=== PATIENT | male | born 1990 | race Caucasian/White ===

== ENCOUNTER 2020-01-04 04:56 | Inpatient (IN) | payer OTHER ==
[2020-01-04] MEDS ORDERED: LORAZEPAM INJ 2 MG/1 ML VIAL IV ONE (05:28)
[2020-01-04] MEDS ORDERED: NORMAL SALINE 1000 ML 1,000 ML IV ONE ×2 (05:29→07:07)
--- NOTE | 2020-01-04 05:34 | ER Document Report ---
ED General - General Chief Complaint: Pain All Over Stated Complaint: BODY ACHE,SHORTNESS OF BREATH,VOMITING Time Seen by Provider: 01/04/20 05:22 Notes: Patient is a 29-year-old male that comes emergency department for chief complaint of vomiting and severe muscle cramping with inability to straighten out his arms. He states has been vomiting for the past 2 days. He denies particular abdominal pain. He admits that he has been "binge drinking alcohol" and he states he drinks alcohol heavily. He also has a history of pancreatitis. He denies history of alcohol withdrawals in the past however. He denies fever, shortness of breath, chest pain, abnormal bowel movements. He denies hematemesis. He denies any daily medications or diagnosed medical history. He denies any surgeries. He denies recreational drugs. Patient admits that he has had at least 1 drink of alcohol every day for over 10 years. - Related Data Allergies/Adverse Reactions: No Known Allergies Allergy (Unverified 01/04/20 05:42) Past Medical History - General Information source: Patient - Social History Smoking Status: Current Every Day Smoker Frequency of alcohol use: Heavy Drug Abuse: None Lives with: Alone Family History: Reviewed & Not Pertinent Surgical Hx: Negative - Immunizations Hx Diphtheria, Pertussis, Tetanus Vaccination: Yes Review of Systems - Review of Systems Constitutional: See HPI EENT: No symptoms reported Cardiovascular: No symptoms reported Respiratory: No symptoms reported Gastrointestinal: See HPI Genitourinary: No symptoms reported Male Genitourinary: No symptoms reported Musculoskeletal: See HPI Skin: No symptoms reported Hematologic/Lymphatic: No symptoms reported Neurological/Psychological: No symptoms reported Physical Exam - Vital signs Vitals: Temp Pulse Resp BP Pulse Ox 99.5 F 162 H 36 H 146/69 H 95 01/04/20 05:10 01/04/20 05:10 01/04/20 05:10 01/04/20 05:10 01/04/20 05:10 - Notes Notes: GENERAL: Patient is ill in appearance, flushed, tremulous HEAD: Normocephalic, atraumatic. EYES: Pupils equal, round, and reactive to light. Extraocular movements intact. ENT: Oral mucosa moist, tongue midline. Oropharynx unremarkable. Airway patent. NECK: Full range of motion. Supple. Trachea midline. No lymphadenopathy. LUNGS: Clear to auscultation bilaterally, no wheezes, rales, or rhonchi. No respiratory distress. Non-tender chest wall. HEART: Marked tachycardia, normal rhythm, no murmur ABDOMEN: Soft, non-tender. Non-distended. Bowel sounds present in all 4 quadrants. GENITOURINARY: Deferred EXTREMITIES: Unable to bend his extremities at the elbows and unable to open his hands. Distal pulses and sensation intact. BACK: no cervical, thoracic, lumbar midline tenderness. No saddle anesthesia, normal distal neurovascular exam. Moves all extremities in full range of motion. NEUROLOGICAL: Alert and oriented x3. Normal speech. Cranial nerves II through XII grossly intact. Strength 5/5 in all extremities. PSYCH: Patient slightly agitated, restless, anxious SKIN: Flushed Course - Re-evaluation Re-evalutation: Patient initially unable to extend his arms at the elbows and unable to open his hands, he is very uncomfortable, tremulous, flushed, and very tachycardic in the 150s. I suspect alcohol withdrawal and electrolyte derangements. He was given IV fluids, 2 mg of Ativan. After this patient was able to extend his arms and eventually his hands, he appears much improved. Heart rate down to approximately 115. CBC shows leukocytosis and small amount of bands, nonspecific given reported repeated vomiting. Abdomen is unremarkable. Chest x-ray unremarkable. Urine is pending. Chemistry shows mildly elevated LFTs and bilirubin, unremarkable lipase, slightly low bicarbonate. Magnesium is very low at 0.8 and this is being supplemented. On reevaluation patient is started become very tremulous and increasingly tachycardic again up to 130. I suspect the Ativan is wearing off. Patient was given IV Valium and heart rate dropped down to 105. Patient is much improved in appearance. Patient appears to be having significant withdrawal along with his electrolyte derangements, he will require admission. Discussed with Dr. Gramajo. 01/04/[address] Swartz, hospitalist, patient accepted to [facility] for admission. Patient does state understanding and agreement with this plan. - Vital Signs Vital signs: Temp Pulse Resp BP Pulse Ox 100.3 F 162 H 20 114/65 96 01/04/20 05:57 01/04/20 05:10 01/04/20 08:01 01/04/20 08:01 08/09/20 08:01 - Laboratory Result Diagrams: 01/04/20 05:28 01/04/20 05:28 Laboratory results interpreted by me: 01/04/20 01/04/20 05:28 05:28 WBC 11.9 H RBC 4.18 L MCV 100 H MCH 33.9 H Seg Neuts % (Manual) 91 H Band Neutrophils % 2 L Lymphocytes % (Manual) 3 L Abs Neuts (Manual) 11.1 H Abs Lymphs (Manual) 0.4 L Sodium 133.8 L Chloride 90 L Carbon Dioxide 20 L Anion Gap 24 H Glucose 128 H Calcium 8.3 L Magnesium 0.8 L* Total Bilirubin 4.1 H Direct Bilirubin 1.3 H AST 97 H ALT 61 H Alkaline Phosphatase 167 H - EKG Interpretation by Me Additional EKG results interpreted by me: EKG shows sinus tachycardia at a rate of 119, borderline prolonged QT interval at 485, normal axis, no T wave inversions or ST segment changes in consecutive leads Discharge - Discharge Clinical Impression: Tachycardia, Hypomagnesemia Alcohol withdrawal Qualifiers: Complication of substance-induced condition: with unspecified complication Qual ified Code(s): F10.239 - Alcohol dependence with withdrawal, unspecified Vomiting Qualifiers: Vomiting type: unspecified Vomiting Intractability: non-intractable Nausea presence: with nausea Qualified Code(s): R11.2 - Nausea with vomiting, unspecified Condition: Fair Disposition: ADMITTED INPATIENT Admitting Provider: Sheridan (Hospitalist) Unit Admitted: [facility]
[2020-01-04 05:53] LABS: HEMATOCRIT 41.8 % (37.9-51.0); HEMOGLOBIN 14.2 g/dL (13.5-17.0); MEAN CORPUSCULAR HEMOGLOBIN 33.9 pg (27.0-33.4); MEAN CORPUSCULAR HGB CONC 33.9 g/dL (32.0-36.0); MEAN CORPUSCULAR VOLUME 100 fl (80-97); PLATELET COUNT 184 10^3/uL (150-450); RED BLOOD COUNT 4.18 10^6/uL (4.35-5.55); RED CELL DISTRIBUTION WIDTH 12.8 % (11.5-14.0); WHITE BLOOD COUNT 11.9 10^3/uL (4.0-10.5)
[2020-01-04 05:59] LABS: ALBUMIN 4.6 g/dL (3.5-5.0); ALKALINE PHOSPHATASE 167 U/L (38-126); ASPARTATE AMINO TRANSFERASE 97 U/L (17-59); BILIRUBIN,DIRECT 1.3 mg/dL (0.0-0.4); BILIRUBIN,TOTAL 4.1 mg/dL (0.2-1.3); BLOOD UREA NITROGEN 7 mg/dL (7-20); CALCIUM 8.3 mg/dL (8.4-10.2); GLUCOSE 128 mg/dL (75-110); TOTAL PROTEIN 7.9 g/dL (6.3-8.2)
[2020-01-04 06:03] LABS: CARBON DIOXIDE 20 mmol/L (22-30); CHLORIDE 90 mmol/L (98-107)
[2020-01-04 06:05] LABS: ALCOHOL < 10 mg/dL (NONE DETECTED)
[2020-01-04 06:18] LABS: ABSOLUTE LYMPHOCYTES# (MANUAL) 0.4 10^3/uL (0.5-4.7); ABSOLUTE MONOCYTES # (MANUAL) 0.5 10^3/uL (0.1-1.4); BAND NEUTROPHILS % (MANUAL) 2 % (3-5); BASOPHILS % (MANUAL) 0 % (0-2); EOSINOPHILS % (MANUAL) 0 % (0-6); LYMPHOCYTES % (MANUAL) 3 % (13-45); MONOCYTES % (MANUAL) 4 % (3-13); SEGMENTED NEUTROPHILS % (MAN) 91 % (42-78); TOTAL CELLS COUNTED 100
[2020-01-04] MEDS: MAGNESIUM SULFATE/D5W 1 GM/100 ML RTUPB IV SCH ×4 (06:18→15:29)
[2020-01-04 06:20] LABS: PLATELET COMMENT ADEQUATE; PLATELET LARGE PRESENT; POLYCHROMASIA SLIGHT; TEAR DROP CELLS SLIGHT
[2020-01-04 06:21] LABS: ANION GAP 24 (5-19)
--- NOTE | 2020-01-04 06:49 | RADIOLOGY REPORT (SQ) ---
EXAM DESCRIPTION: XR CHEST 1 VIEW COMPLETED DATE/TME: 01/04/2020 06:11 CLINICAL HISTORY: 29 years, Male, weakness, fevers COMPARISON: None. NUMBER OF VIEWS: 1 TECHNIQUE: Portable chest LIMITATIONS: None. FINDINGS: The heart size is normal. Lungs are clear. No pneumothorax IMPRESSION: Negative chest copyright 2011 [employer]- All Rights Reserved
[2020-01-04] MEDS ORDERED: THIAMINE HCL 100 MG, FOLIC ACID 1 MG in NORMAL SALINE 250 ML IV ONE (07:23)
[2020-01-04] MEDS ORDERED: DIAZEPAM INJ 10 MG/2 ML DISP.SYRIN IV ONE (07:23)
--- NOTE | 2020-01-04 08:32 | EKG REPORT ---
SEVERITY:- BORDERLINE ECG - SINUS TACHYCARDIA BORDERLINE PROLONGED QT INTERVAL : Confirmed by: Benton Grover MD 04-Jan-2020 08:31:31
[2020-01-04] MEDS ORDERED: POTASSIUM CHLORIDE 10 MEQ TABLET.ER PO ONE ×2 (08:48→15:30)
[2020-01-04] MEDS ORDERED: IPRATROPIUM/ALBUTEROL 0.5-2.5 MG/3 ML AMPUL NEB PRN (08:49)
[2020-01-04] MEDS ORDERED: PROMETHAZINE HCL INJ 25 MG/1 ML VIAL IV PRN (08:49)
[2020-01-04] MEDS ORDERED: ONDANSETRON HCL INJ/PF 4 MG/2 ML SDV IV PRN (08:49)
[2020-01-04] MEDS ORDERED: TEMAZEPAM 7.5 MG CAPSULE PO PRN (08:49)
[2020-01-04] MEDS ORDERED: HYDRALAZINE HCL INJ/PF 20 MG/1 ML SDV IV PRN (08:52)
[2020-01-04] MEDS ORDERED: DOCUSATE SODIUM 100 MG/10 ML UDC PO SCH (10:00)
[2020-01-04] MEDS ORDERED: MULTIVITAMINS W-IRON TABLET, CHEWABLE PO SCH (10:00)
[2020-01-04 12:27] LABS: APPEARANCE,URINE CLEAR; BILIRUBIN,URINE SMALL (NEGATIVE); COLOR,URINE AMBER; GLUCOSE, URINE NEGATIVE (NEGATIVE); KETONES,URINE NEGATIVE (NEGATIVE); LEUKOCYTE ESTERASE,URINE NEGATIVE (NEGATIVE); NITRITE,URINE NEGATIVE (NEGATIVE); PROTEIN,URINE 30 mg/dL (NEGATIVE); URINE SPECIFIC GRAVITY 1.016
[2020-01-04 12:35] LABS: URINE AMPHETAMINES SCREEN NEGATIVE; URINE BARBITURATES SCREEN NEGATIVE; URINE BENZODIAZEPINES SCREEN NEGATIVE; URINE COCAINE SCREEN NEGATIVE; URINE MARIJUANA (THC) SCREEN NEGATIVE; URINE METHADONE SCREEN NEGATIVE; URINE PHENCYCLIDINE SCREEN NEGATIVE
--- NOTE | 2020-01-04 12:54 | PDOC H&P ---
History of Present Illness Admission Date/PCP: 01/04/20 08:35 History of Present Illness: NICK ESTRELLA is a 29 year old male past medical history of EtOH abuse with frequent binge drinking, alcohol withdrawal seizure, alcoholic pancreatitis presenting to ED complaining of nausea vomiting and severe muscle cramps for the last 2 days. Patient has been drinking heavily recently, saying that he has been drinking constantly for the last several days, patient also has history of alcohol pancreatitis and has had alcohol withdrawals in the past and been hospitalized. Saw patient this morning after he has already received IV fluids and benzodiazepines sitting in the bed appearing very anxious and is stating that his lower extremities are cramping up but has nausea and vomiting has resolved since he came to ED. Patient lives with his at home they have a get together, patient has not been exposed to anybody with COVID-19, denies any shortness of breath, fever, chills, chest pain or any urinary symptoms. In ED was noted to be tachypneic, tachycardic, hypokalemic and hypomagnesemic. Hospitalist was consulted for admission. Social History Lives with: Alone Smoking Status: Current Every Day Smoker Family History Family History: Reviewed & Not Pertinent Parental Family History Reviewed: Yes Children Family History Reviewed: Yes Sibling(s) Family History Reviewed.: Yes Medication/Allergy Allergies/Adverse Reactions: No Known Allergies Allergy (Unverified 01/04/20 05:42) Review of Systems Review of Systems: as per hpi Physical Exam Vital Signs: Temp Pulse Resp BP Pulse Ox 98.1 F 93 18 94/66 L 100 01/04/20 12:00 01/04/20 12:00 01/04/20 12:00 01/04/20 12:00 01/04/20 12:00 Intake & Output 01/03/20 01/04/20 01/05/20 06:59 06:59 06:59 Intake Total 1000 200 Balance 1000 200 Weight 74.843 kg General appearance: PRESENT: no acute distress, thin, well-developed, well- nourished Head exam: PRESENT: atraumatic, normocephalic Respiratory exam: PRESENT: clear to auscultation emmanuel, symmetrical, tachypnea. ABSENT: rales, rhonchi, wheezes Cardiovascular exam: PRESENT: RRR, tachycardia. ABSENT: diastolic murmur, rubs, systolic murmur GI/Abdominal exam: PRESENT: normal bowel sounds, soft. ABSENT: distended, guarding, mass, organolmegaly, rebound, tenderness Neurological exam: PRESENT: alert, awake, oriented to person, oriented to place, oriented to time, oriented to situation, CN II-XII grossly intact. ABSENT: motor sensory deficit Psychiatric exam: PRESENT: anxious Results Laboratory Results: 01/04/20 05:28 01/04/20 05:28 01/04/20 01/04/20 01/04/20 05:28 05:28 12:03 WBC 11.9 H RBC 4.18 L Hgb 14.2 Hct 41.8 MCV 100 H MCH 33.9 H MCHC 33.9 RDW 12.8 Plt Count 184 Seg Neutrophils % Not Reportable Sodium 133.8 L Potassium 4.0 Chloride 90 L Carbon Dioxide 20 L Anion Gap 24 H BUN 7 Creatinine 0.54 Est GFR ( Amer) > 60 Glucose 128 H Calcium 8.3 L Magnesium 0.8 L* Total Bilirubin 4.1 H AST 97 H Alkaline Phosphatase 167 H Total Protein 7.9 Albumin 4.6 Lipase 124.8 Urine Color DEREK Urine Appearance CLEAR Urine pH 8.0 Ur Specific [place] 1.016 Urine Protein 30 H Urine Glucose (UA) NEGATIVE Urine Ketones NEGATIVE Urine Blood NEGATIVE Urine Nitrite NEGATIVE Ur Leukocyte Esterase NEGATIVE Urine WBC (Auto) 1 Impressions: Chest X-Ray 01/04/20 06:11 IMPRESSION: Negative chest copyright 2011 [employer]- All Rights Reserved Assessment and Plan - Diagnosis (1) ETOH abuse Is this a current diagnosis for this admission?: Yes Plan: History of frequent binge eating and alcohol withdrawal seizures and pancreatitis. Lipase WNL. Polyelectrolyte abnormalities. Admit to IMCU, D5 NS, thiamine, folic acid, benzodiazepines, seizure precautions, fall precautions. (2) Hypokalemia Is this a current diagnosis for this admission?: Yes Plan: Due to GI losses caused by excessive vomiting caused by alcohol intoxication. No acute EKG changes. Supplemental potassium. Potassium level tomorrow. (3) Hypomagnesemia Is this a current diagnosis for this admission?: Yes Plan: Due to GI losses. Will replace. Magnesium level tomorrow. (4) Cramps, muscle, general Is this a current diagnosis for this admission?: Yes Plan: Likely due to poly-electrolyte abnormalities and dehydration. Rehydrate and correct electrolytes. Will obtain CK. Denies any trauma. - Time Time Spent with patient: 25-34 minutes Medications reviewed and adjusted accordingly: Yes Anticipated Discharge Disposition: Home, Self Care Anticipated Discharge Timeframe: within 72 hours
[2020-01-04] MEDS: DEXTROSE 5%-WATER 1000 ML 1,000 ML IV PRN (14:01)
[2020-01-04] MEDS: ENOXAPARIN SODIUM INJ 40 MG/0.4 ML DISP.SYRIN SUBCUT SCH (14:01)
[2020-01-04] MEDS: FAMOTIDINE 20 MG TABLET PO SCH ×2 (14:01→21:18)
[2020-01-04] MEDS: MULTIVITAMIN TABLET PO SCH (14:01)
[2020-01-04] MEDS: DIAZEPAM INJ 10 MG/2 ML DISP.SYRIN IV SCH ×2 (14:07→21:16)
[2020-01-04 14:17] LABS: ANION GAP 9 (5-19); BLOOD UREA NITROGEN 6 mg/dL (7-20); CHLORIDE 92 mmol/L (98-107); GLUCOSE 97 mg/dL (75-110); POTASSIUM 3.3 mmol/L (3.6-5.0)
[2020-01-04 14:27] LABS: CARBON DIOXIDE 30 mmol/L (22-30)
[2020-01-04] MEDS ORDERED: CALCIUM CARBONATE 500 MG TAB.CHEW PO ONE ×2 (16:00)
[2020-01-04] MEDS: LORAZEPAM INJ 2 MG/1 ML VIAL IV PRN ×2 (16:18→19:12)
[2020-01-04] MEDS ORDERED: MAGNESIUM SULFATE/D5W 1 GM/100 ML RTUPB IV ONE (16:30)
[2020-01-04] MEDS ORDERED: NORMAL SALINE 1000 ML 1,000 ML with POTASSIUM CHLORIDE 20 MEQ, MAGNESIUM SULFATE 8 MEQ,... IV ONE ×5 (18:00)
[2020-01-04 20:17] LABS: ANION GAP 10 (5-19); BLOOD UREA NITROGEN 5 mg/dL (7-20); CALCIUM 7.2 mg/dL (8.4-10.2); CARBON DIOXIDE 25 mmol/L (22-30); CHLORIDE 91 mmol/L (98-107); GLUCOSE 164 mg/dL (75-110); POTASSIUM 3.6 mmol/L (3.6-5.0)
[2020-01-04] MEDS: ACETAMINOPHEN 325 MG TABLET PO PRN (20:36)
[2020-01-05] MEDS: DEXTROSE 5%-WATER 1000 ML 1,000 ML IV PRN ×3 (01:54→17:20)
[2020-01-05] MEDS: DIAZEPAM INJ 10 MG/2 ML DISP.SYRIN IV SCH ×3 (05:28→23:00)
[2020-01-05 06:38] LABS: ABSOLUTE LYMPHOCYTES (AUTO) 0.6 10^3/uL (0.5-4.7); ABSOLUTE MONOCYTES (AUTO) 0.3 10^3/uL (0.1-1.4); ABSOLUTE NEUT (AUTO) 4.7 10^3/uL (1.7-8.2); BASOPHILS % (AUTO) 0.5 % (0-2); EOSINOPHILS % (AUTO) 0.5 % (0-6); HEMOGLOBIN 12.3 g/dL (13.5-17.0); LYMPHOCYTES % (AUTO) 10.9 % (13-45); MEAN CORPUSCULAR HEMOGLOBIN 34.7 pg (27.0-33.4); MEAN CORPUSCULAR HGB CONC 35.1 g/dL (32.0-36.0); MEAN CORPUSCULAR VOLUME 99 fl (80-97); PLATELET COUNT 129 10^3/uL (150-450); RED BLOOD COUNT 3.54 10^6/uL (4.35-5.55); RED CELL DISTRIBUTION WIDTH 13.2 % (11.5-14.0); SEGMENTED NEUTROPHILS % (AUTO) 82.1 % (42-78); TOTAL CELLS COUNTED % (AUTO) 100 %; WHITE BLOOD COUNT 5.7 10^3/uL (4.0-10.5)
[2020-01-05 06:48] LABS: INTERNATIONAL RATION (INR) 1.28; PROTHROMBIN TIME 16.2 SEC (11.4-15.4)
[2020-01-05 07:02] LABS: ALKALINE PHOSPHATASE 92 U/L (38-126); ANION GAP 9 (5-19); ASPARTATE AMINO TRANSFERASE 84 U/L (17-59); BILIRUBIN,DIRECT 1.3 mg/dL (0.0-0.4); BILIRUBIN,TOTAL 3.1 mg/dL (0.2-1.3); BLOOD UREA NITROGEN 3 mg/dL (7-20); CALCIUM 7.3 mg/dL (8.4-10.2); CARBON DIOXIDE 26 mmol/L (22-30); CHLORIDE 93 mmol/L (98-107); GLUCOSE 152 mg/dL (75-110); PHOSPHORUS 1.7 mg/dL (2.5-4.5)
[2020-01-05 07:09] LABS: POTASSIUM 3.4 mmol/L (3.6-5.0)
[2020-01-05] MEDS ORDERED: CALCIUM GLUCONATE 1000 MG/10 ML INJ IV ONE (07:26)
[2020-01-05] MEDS ORDERED: CALCIUM GLUCONATE 1 GM/NS 50 ML RTU IV ONE (08:30)
[2020-01-05] MEDS ORDERED: PHOSPHORUS #1 250 MG TABLET PO ONE (09:00)
[2020-01-05] MEDS: MULTIVITAMIN TABLET PO SCH (09:41)
[2020-01-05] MEDS: FAMOTIDINE 20 MG TABLET PO SCH (09:41)
[2020-01-05] MEDS: ENOXAPARIN SODIUM INJ 40 MG/0.4 ML DISP.SYRIN SUBCUT SCH (09:41)
[2020-01-05] MEDS ORDERED: MAGNESIUM OXIDE 400 MG TABLET PO SCH (10:00)
[2020-01-05] MEDS ORDERED: THIAMINE HCL 100 MG TABLET PO SCH (10:00)
[2020-01-05] MEDS ORDERED: FOLIC ACID 1 MG TABLET PO SCH (10:00)
[2020-01-05] MEDS ORDERED: DOCUSATE SODIUM 100 MG CAPSULE PO SCH (10:00)
--- NOTE | 2020-01-05 10:59 | PDOC PROGRESS REPORT ---
Subjective Progress Note for:: 01/05/20 Subjective:: NICK ESTRELLA is a 29 year old male past medical history of EtOH abuse with frequent binge drinking, alcohol withdrawal seizure, alcoholic pancreatitis presenting to ED complaining of nausea vomiting and severe muscle cramps for the last 2 days. Patient has been drinking heavily recently, saying that he has been drinking constantly for the last several days, patient also has history of alcohol pancreatitis and has had alcohol withdrawals in the past and been hospitalized. Saw patient this morning after he has already received IV fluids and benzodiazepines sitting in the bed appearing very anxious and is stating that his lower extremities are cramping up but has nausea and vomiting has resolved since he came to ED. Patient lives with his at home they have a get together, patient has not been exposed to anybody with COVID-19, denies any shortness of breath, fever, chills, chest pain or any urinary symptoms. In ED was noted to be tachypneic, tachycardic, hypokalemic and hypomagnesemic. Hospitalist was consulted for admission. 01/05/2020. No acute events overnight. Patient has not had any more seizures, resting in bed no apparent distress, complaining of generalized weakness and muscle cramps otherwise denies any fever, chills, nausea, vomiting, diarrhea, constipation or any urinary symptoms. Feeling anxious however denies any au ditory or visual hallucination, yesterday patient was having visual hallucinations. P.o. tolerant and having normal bowel and bladder movements. Reason For Visit: NAUSEA,VOMITING,ETOH ABUSE Physical Exam Vital Signs: Temp Pulse Resp BP Pulse Ox 99.3 F 101 H 16 114/66 96 01/05/20 04:01 01/05/20 09:00 01/05/20 09:00 01/05/20 04:01 01/05/20 09:00 Intake & Output 01/04/20 01/05/20 01/06/20 06:59 06:59 06:59 Intake Total 1000 5654.2 1000 Output Total 1830 Balance 1000 3824.2 1000 Weight 74.843 kg 74.2 kg General appearance: PRESENT: no acute distress, well-developed, well-nourished Head exam: PRESENT: atraumatic, normocephalic Respiratory exam: PRESENT: clear to auscultation emmanuel. ABSENT: rales, rhonchi, wheezes Cardiovascular exam: PRESENT: RRR. ABSENT: diastolic murmur, rubs, systolic murmur GI/Abdominal exam: PRESENT: normal bowel sounds, soft. ABSENT: distended, guarding, mass, organolmegaly, rebound, tenderness Neurological exam: PRESENT: alert, awake, oriented to person, oriented to place, oriented to time, oriented to situation, CN II-XII grossly intact. ABSENT: motor sensory deficit Psychiatric exam: PRESENT: anxious Results Laboratory Results: 01/05/20 05:40 01/05/20 05:40 01/04/20 01/04/20 01/04/20 12:03 13:48 18:15 WBC RBC Hgb Hct MCV MCH MCHC RDW Plt Count Seg Neutrophils % Sodium 131.4 L Cancelled Potassium 3.3 L Cancelled Chloride 92 L Cancelled Carbon Dioxide 30 D Cancelled Anion Gap 9 Cancelled BUN 6 L Cancelled Creatinine 0.40 L Cancelled Est GFR ( Amer) > 60 Cancelled Est GFR (Non-Af Amer) Cancelled Glucose 97 Cancelled Calcium 7.0 L* Cancelled Phosphorus Magnesium 1.6 Cancelled Total Bilirubin AST Alkaline Phosphatase Total Protein Albumin Urine Color DEREK Urine Appearance CLEAR Urine pH 8.0 Ur Specific [place] 1.016 Urine Protein 30 H Urine Glucose (UA) NEGATIVE Urine Ketones NEGATIVE Urine Blood NEGATIVE Urine Nitrite NEGATIVE Ur Leukocyte Esterase NEGATIVE Urine WBC (Auto) 1 01/04/20 01/05/20 01/05/20 19:50 05:40 05:40 WBC 5.7 RBC 3.54 L Hgb 12.3 L Hct 35.0 L MCV 99 H MCH 34.7 H MCHC 35.1 RDW 13.2 Plt Count 129 L Seg Neutrophils % 82.1 H Sodium 125.9 L 127.5 L Potassium 3.6 3.4 L Chloride 91 L 93 L Carbon Dioxide 25 26 Anion Gap 10 9 BUN 5 L 3 L Creatinine 0.38 L 0.33 L Est GFR ( Amer) > 60 > 60 Est GFR (Non-Af Amer) Glucose 164 H 152 H Calcium 7.2 L 7.3 L Phosphorus 1.7 L Magnesium 2.1 2.1 Total Bilirubin 3.1 H AST 84 H Alkaline Phosphatase 92 Total Protein 6.0 L Albumin 3.0 L Urine Color Urine Appearance Urine pH Ur Specific [place] Urine Protein Urine Glucose (UA) Urine Ketones Urine Blood Urine Nitrite Ur Leukocyte Esterase Urine WBC (Auto) 01/04/20 13:48 Creatine Kinase 845 H Impressions: Chest X-Ray 01/04/20 06:11 IMPRESSION: Negative chest copyright 2011 [employer]- All Rights Reserved Assessment and Plan - Diagnosis (1) ETOH abuse Is this a current diagnosis for this admission?: Yes Plan: Complaining of being anxious, denies any visual, auditory hallucinations or any full medications. History of frequent binge eating and alcohol withdrawal seizures and pancreatitis. Lipase WNL. Polyelectrolyte abnormalities. Continue telemetry, D5 NS, thiamine, folic acid, benzodiazepines, seizure precautions, fall precautions. (2) Hypokalemia Is this a current diagnosis for this admission?: Yes Plan: Due to GI losses caused by excessive vomiting caused by alcohol intoxication. No acute EKG changes. Supplemental potassium. Potassium level tomorrow. (3) Hypomagnesemia Is this a current diagnosis for this admission?: Yes Plan: Due to GI losses. Will replace. Magnesium level tomorrow. (4) Cramps, muscle, general Is this a current diagnosis for this admission?: Yes Plan: Likely due to poly-electrolyte abnormalities and dehydration. Rehydrate and correct electrolytes. Will obtain CK. Denies any trauma. (5) Rhabdomyolysis Qualifiers: Rhabdomyolysis type: non-traumatic Qualified Code(s): M62.82 - Rhabdomyolysis Is this a current diagnosis for this admission?: Yes Plan: Most likely due to severe dehydration coupled with poly-electrolyte normalities caused by nausea vomiting due to alcohol abuse. Creatinine kinase 945. Volume resuscitation guided by volume status. Monitor electrolytes. - Time Time Spent with patient: 25-34 minutes Medications reviewed and adjusted accordingly: Yes Anticipated Discharge Disposition: Home, Self Care Anticipated Discharge Timeframe: within 36 hours
[2020-01-05] MEDS: LORAZEPAM INJ 2 MG/1 ML VIAL IV PRN ×3 (12:44→20:42)
[2020-01-05] MEDS: ACETAMINOPHEN 325 MG TABLET PO PRN (20:30)
[2020-01-06] MEDS: FAMOTIDINE 20 MG TABLET PO SCH (01:34)
[2020-01-06 03:57] VITALS: BP 97/58
[2020-01-06 06:18] LABS: ABSOLUTE BASOPHILS # (AUTO) 0.1 10^3/uL (0.0-0.2); ABSOLUTE EOSINOPHILS # (AUTO) 0.1 10^3/uL (0.0-0.6); ABSOLUTE LYMPHOCYTES (AUTO) 1.1 10^3/uL (0.5-4.7); ABSOLUTE MONOCYTES (AUTO) 0.6 10^3/uL (0.1-1.4); ABSOLUTE NEUT (AUTO) 3.6 10^3/uL (1.7-8.2); BASOPHILS % (AUTO) 1.2 % (0-2); EOSINOPHILS % (AUTO) 1.7 % (0-6); HEMATOCRIT 36.5 % (37.9-51.0); HEMOGLOBIN 12.6 g/dL (13.5-17.0); LYMPHOCYTES % (AUTO) 20.3 % (13-45); MEAN CORPUSCULAR HEMOGLOBIN 34.4 pg (27.0-33.4); MEAN CORPUSCULAR HGB CONC 34.6 g/dL (32.0-36.0); MEAN CORPUSCULAR VOLUME 99 fl (80-97); MONOCYTES % (AUTO) 10.5 % (3-13); PLATELET COUNT 135 10^3/uL (150-450); RED BLOOD COUNT 3.68 10^6/uL (4.35-5.55); RED CELL DISTRIBUTION WIDTH 13.3 % (11.5-14.0); SEGMENTED NEUTROPHILS % (AUTO) 66.3 % (42-78); TOTAL CELLS COUNTED % (AUTO) 100 %; WHITE BLOOD COUNT 5.4 10^3/uL (4.0-10.5)
[2020-01-06 06:34] LABS: ALBUMIN 3.1 g/dL (3.5-5.0); ALKALINE PHOSPHATASE 109 U/L (38-126); ANION GAP 7 (5-19); ASPARTATE AMINO TRANSFERASE 76 U/L (17-59); BLOOD UREA NITROGEN 4 mg/dL (7-20); CALCIUM 7.9 mg/dL (8.4-10.2); CARBON DIOXIDE 28 mmol/L (22-30); CHLORIDE 98 mmol/L (98-107); CREATINE KINASE 318 U/L (55-170); GLUCOSE 119 mg/dL (75-110); PHOSPHORUS 2.7 mg/dL (2.5-4.5); POTASSIUM 3.3 mmol/L (3.6-5.0); TOTAL PROTEIN 6.1 g/dL (6.3-8.2)
[2020-01-06] MEDS ORDERED: POTASSIUM CHLORIDE 10 MEQ TABLET.ER PO ONE (07:59)
[2020-01-06] MEDS ORDERED: DIAZEPAM INJ 10 MG/2 ML DISP.SYRIN IV SCH (10:00)
--- NOTE | 2020-01-10 15:44 | Left Against Medical Advice ---
Against Medical Advice Admission Date/Time: 01/04/20 08:35 Primary Care Provider: Date of Patient Emigration: 01/06/20 - Diagnosis: (1) ETOH abuse Is this a current diagnosis for this admission?: Yes (2) Hypokalemia Is this a current diagnosis for this admission?: Yes (3) Hypomagnesemia Is this a current diagnosis for this admission?: Yes (4) Cramps, muscle, general Is this a current diagnosis for this admission?: Yes (5) Rhabdomyolysis Is this a current diagnosis for this admission?: Yes - Summary: Summary: Please see Admission and Progress Notes as well. NICK ESTRELLA is a 29 M, who LEFT AGAINST MEDICAL ADVICE. The Patient was admitted on 01/04/20 08:35. NICK ESTRELLA is a 29 year old male past medical history of EtOH abuse with frequent binge drinking, alcohol withdrawal seizure, alcoholic pancreatitis p resenting to ED complaining of nausea vomiting and severe muscle cramps for the last 2 days. Patient has been drinking heavily recently, saying that he has been drinking constantly for the last several days, patient also has history of alcohol pancreatitis and has had alcohol withdrawals in the past and been hospitalized. Saw patient this morning after he has already received IV fluids and henrique zodiazepines sitting in the bed appearing very anxious and is stating that his lower extremities are cramping up but has nausea and vomiting has resolved since he came to ED. Patient lives with his at home they have a get together, patient has not been exposed to anybody with COVID-19, denies any shortness of breath, fever, chills, chest pain or any urinary symptoms. In ED was noted to be tachypneic, tachycardic, hypokalemic and hypomagnesemic. Hospitalist was consulted for admission. (1) ETOH abuse Complaining of being anxious, denies any visual, auditory hallucinations or any full medications. History of frequent binge eating and alcohol withdrawal seizures and pancreatitis. Lipase WNL. Polyelectrolyte abnormalities. Continue telemetry, D5 NS, thiamine, folic acid, benzodiazepines, seizure precautions, fall precautions. (2) Hypokalemia Due to GI losses caused by excessive vomiting caused by alcohol intoxication. No acute EKG changes. Supplemental potassium. Potassium level tomorrow. (3) Hypomagnesemia Due to GI losses. Will replace. Magnesium level tomorrow. (4) Cramps, muscle, general Likely due to poly-electrolyte abnormalities and dehydration. Rehydrate and correct electrolytes. Will obtain CK. Denies any trauma. (5) Rhabdomyolysis Most likely due to severe dehydration coupled with poly-electrolyte normalities caused by nausea vomiting due to alcohol abuse. Creatinine kinase 945. Volume resuscitation guided by volume status. Monitor electrolytes.
== END 2020-01-06 10:00 | disposition left against medical advice (07) | DRG 558 ==
LOC: ER 04:56 → EH 08:35 → 3W 11:57 → 3N 20:09
PROVIDERS: ADMIT Internal Medicine; ATTEND Internal Medicine
DX: M62.82 Rhabdomyolysis (principal); F10.239 Alcohol dependence with withdrawal, unspecified; E83.42 Hypomagnesemia; F17.200 Nicotine dependence, unspecified, uncomplicated; E87.6 Hypokalemia; Z20.828 Contact with and (suspected) exposure to other viral communicable diseases
CPT/HCPCS: 36415; 71045; 80053; 80307; 81001; 82550; 83036; 83690; 83735; 84100; 85025; 85610; 87635; 93005; 93010; 96361; 96365; 96366; 96375; 99285; J0610; C9803; J1650; J2060; J3360; J3411; J3475; J3480; J3490; J7030; J7050; J7060

== ENCOUNTER 2020-01-24 23:49 | Inpatient (IN) | payer OTHER ==
[2020-01-25] MEDS ORDERED: NORMAL SALINE 1000 ML 1,000 ML IV ONE ×3 (00:41→11:45)
[2020-01-25] MEDS ORDERED: DIAZEPAM INJ 10 MG/2 ML DISP.SYRIN IV ONE ×2 (00:42→02:14)
[2020-01-25 00:57] LABS: ABSOLUTE LYMPHOCYTES (AUTO) 1.9 10^3/uL (0.5-4.7); ABSOLUTE MONOCYTES (AUTO) 1.3 10^3/uL (0.1-1.4); ABSOLUTE NEUT (AUTO) 9.8 10^3/uL (1.7-8.2); BASOPHILS % (AUTO) 0.4 % (0-2); EOSINOPHILS % (AUTO) 0.3 % (0-6); HEMOGLOBIN 11.9 g/dL (13.5-17.0); LYMPHOCYTES % (AUTO) 14.4 % (13-45); MEAN CORPUSCULAR HEMOGLOBIN 34.7 pg (27.0-33.4); MEAN CORPUSCULAR HGB CONC 35.1 g/dL (32.0-36.0); MEAN CORPUSCULAR VOLUME 99 fl (80-97); MONOCYTES % (AUTO) 10.1 % (3-13); PLATELET COUNT 352 10^3/uL (150-450); RED BLOOD COUNT 3.44 10^6/uL (4.35-5.55); RED CELL DISTRIBUTION WIDTH 15.2 % (11.5-14.0); SEGMENTED NEUTROPHILS % (AUTO) 74.8 % (42-78); TOTAL CELLS COUNTED % (AUTO) 100 %
--- NOTE | 2020-01-25 01:03 | ER Document Report ---
Entered by ALICIA LOO SCRIBE 01/25/20 0039 Acting as scribe for:BECKY ROBINS IV, MD ED General - General Chief Complaint: Abdominal Pain Stated Complaint: ABDOMINAL PAIN Mode of Arrival: Wheelchair Information source: Patient, Emergency Med Personnel Notes: This 29 year old male patient with a history of ETOH withdrawal seizure, frequent binge drinking, and pancreatitis presents to the ED today with complaints of lower abdominal pain. Patient was reportedly sitting in the lobby when he started to have generalized shaking, so he was brought back to a room via wheelchair and placed on the stretcher with seizure pads. - Related Data Allergies/Adverse Reactions: No Known Allergies Allergy (Unverified 01/04/20 05:42) Past Medical History - Social History Smoking Status: Unknown if Ever Smoked Smoking Education Provided: No Frequency of alcohol use: Heavy Lives with: Spouse/Significant other Family History: Reviewed & Not Pertinent Neurological Medical History: Reports: Hx Seizures - ETOH withdrawal seizures GI Medical History: Reports: Hx Pancreatitis - Immunizations Hx Diphtheria, Pertussis, Tetanus Vaccination: Yes Review of Systems - Review of Systems Constitutional: No symptoms reported EENT: No symptoms reported Cardiovascular: No symptoms reported Respiratory: No symptoms reported Gastrointestinal: See HPI, Abdominal pain Genitourinary: No symptoms reported Male Genitourinary: No symptoms reported Musculoskeletal: No symptoms reported Skin: No symptoms reported Hematologic/Lymphatic: No symptoms reported Neurological/Psychological: No symptoms reported -: Yes All other systems reviewed and negative Physical Exam - Vital signs Vitals: Temp Pulse Resp BP Pulse Ox 97.7 F 101 H 16 111/69 96 01/24/20 23:56 01/24/20 23:56 01/24/20 23:56 01/24/20 23:56 01/24/20 23:56 - General General appearance: Other - Slightly confused, no evidence of urinary or stool incontinence In distress: None - HEENT Head: Normocephalic, Atraumatic Eyes: Normal Conjunctiva: Injected Pupils: PERRL - Respiratory Respiratory status: No respiratory distress Chest status: Nontender Breath sounds: Normal Chest palpation: Normal - Cardiovascular Rhythm: Regular, Tachycardia Heart sounds: Normal auscultation Murmur: No Friction rub: No Gallop: None auscultated - Abdominal Inspection: Normal Distension: No distension Bowel sounds: Hypoactive Tenderness: Tender - Tenderness to palpation inferior to umbilicus, Other - Abdomen soft Organomegaly: No organomegaly - Back Back: Normal, Nontender - Extremities General upper extremity: Normal inspection General lower extremity: Normal inspection - Neurological Cognition: Confused - Psychological Associated symptoms: Confused - Skin Skin Temperature: Warm Skin Moisture: Dry Skin Color: Normal Course - Re-evaluation Re-evalutation: 01/25/20 06:38 Patient has had 2 seizures during this stay in the emergency department. Patient's heart rate has increased to 144 and his blood pressure is also increased to 118/75. Patient has a history of alcohol withdrawal seizures. - Vital Signs Vital signs: Temp Pulse Resp BP Pulse Ox 101.2 F H 101 H 34 H 118/75 96 01/25/20 05:54 01/24/20 23:56 01/25/20 06:01 01/25/20 06:00 01/25/20 06:01 - Laboratory Result Diagrams: 01/25/20 00:45 01/25/20 00:45 Laboratory results interpreted by me: 01/25/20 01/25/20 01/25/20 00:45 00:45 03:20 WBC 13.0 H RBC 3.44 L Hgb 11.9 L Hct 34.0 L MCV 99 H MCH 34.7 H RDW 15.2 H Absolute Neuts (auto) 9.8 H Potassium 3.2 L Chloride 95 L BUN 4 L Creatinine 0.34 L Glucose 143 H Total Bilirubin 3.1 H Direct Bilirubin 1.7 H AST 243 H ALT 73 H Alkaline Phosphatase 275 H Urine Ketones TRACE H Urine Blood SMALL H Urine Urobilinogen 2.0 H - EKG Interpretation by Me Additional EKG results interpreted by me: 01/25/20 06:39 EKG obtained on 01/25/2020 at 00 41 hours was interpreted by this MD. Findings normal sinus rhythm, rate 85, normal axis, P waves preceding QRS complexes, QRS complexes appear narrow, there are no obvious patterns of ST segment elevation or depression present to suggest acute myocardial ischemia or infarction. Impression: Normal sinus rhythm with nonspecific ST segments - Consults dr. bell Time consulted: 06:33 - dr. bell stated he would make the day hospitalist team aware pt is in ed Reason for consultation: 01/25/20 06:40 alcohol withdrawal and alcohol withdrawal seizures Discharge - Discharge Clinical Impression: Alcohol withdrawal Qualifiers: Complication of substance-induced condition: with unspecified complication Qualified Code(s): F10.239 - Alcohol dependence with withdrawal, unspecified Condition: Stable Disposition: ADMITTED OBSERVATION I personally performed the services described in the documentation, reviewed and edited the documentation which was dictated to the scribe in my presence, and it accurately records my words and actions.
[2020-01-25 01:32] LABS: ALBUMIN 3.7 g/dL (3.5-5.0); ALCOHOL 286 mg/dL (NONE DETECTED); ALKALINE PHOSPHATASE 275 U/L (38-126); ANION GAP 16 (5-19); ASPARTATE AMINO TRANSFERASE 243 U/L (17-59); BILIRUBIN,DIRECT 1.7 mg/dL (0.0-0.4); BILIRUBIN,TOTAL 3.1 mg/dL (0.2-1.3); BLOOD UREA NITROGEN 4 mg/dL (7-20); CALCIUM 8.4 mg/dL (8.4-10.2); CARBON DIOXIDE 30 mmol/L (22-30); CHLORIDE 95 mmol/L (98-107); GLUCOSE 143 mg/dL (75-110); POTASSIUM 3.2 mmol/L (3.6-5.0); TOTAL PROTEIN 7.4 g/dL (6.3-8.2)
[2020-01-25] MEDS ORDERED: ONDANSETRON HCL INJ/PF 4 MG/2 ML SDV IV ONE (01:32)
--- NOTE | 2020-01-25 02:32 | RADIOLOGY REPORT (SQ) ---
INDICATION: ams. COMPARISON: None CORRELATION: None TECHNIQUE: Noncontrast spiral axial CT images were obtained from the skull base to vertex. This exam was performed according to our departmental dose-optimization program, which includes automated exposure control, adjustment of the mA and/or kV according to patient size and/or use of iterative reconstruction techniques. FINDINGS: There is no evidence of acute intracranial hemorrhage, midline shift, mass effect or mass lesion. Mejias-white differentiation is normal. There is no evidence of acute large territory infarct. Ventricles and extracerebral spaces are within normal limits, for age. The visualized paranasal sinuses are grossly clear. The orbits and eyeballs are unremarkable. The mastoid air cells are clear. Skull base and calvarium appear intact. IMPRESSION: No acute intracranial process is identified.
--- NOTE | 2020-01-25 02:38 | RADIOLOGY REPORT (SQ) ---
CLINICAL INDICATION: bilateral lower quadrant abdominal pain. . TECHNIQUE: Contrast enhanced spiral axial CT imaging was obtained of the abdomen and pelvis with multiplanar reconstructions. This exam was performed according to our departmental dose-optimization program, which includes automated exposure control, adjustment of the mA and/or kV according to patient size and/or use of iterative reconstruction techniques. Additional delayed phase imaging COMPARISON: None. CORRELATION: None. FINDINGS: Abdomen: The lung bases are grossly clear. The heart is of normal size. No evidence of pleural or pericardial fluid. The liver demonstrate medical hepatic disease. Presumed fatty infiltration. Geographic areas of focal fatty sparing. The liver is enlarged craniocaudad at 27 cm.. The gallbladder is surgically absent. Plastic stent spanning the common bile duct. The pancreas demonstrate mild pancreatic ductal dilatation. Pancreas is not well seen. The spleen is homogeneous. There is a structure immediately adjacent to the lower pole of the spleen estimated at approximately 4.2 x 4.6 x 5.3 cm of unknown etiologies. Unclear if this is of pancreatic or splenic origin, series 3 image 33 and series 601 image 48. The adrenals are unremarkable. The kidneys appear grossly normal without evidence of urolithiasis or hydronephrosis. There is no evidence of free air. Moderate free fluid. No bulky adenopathy. Abdominal aorta is nonaneurysmal. Pelvis: The bowel is thickening of the colon. The bowel is unopacified with oral contrast. Pelvic contents are unremarkable. The appendix is normal. Visualized bones are unremarkable. IMPRESSION: Significant medical hepatic disease. Likely steatosis. Hepatomegaly. Complex cystic and solid lesion adjacent to the lower pole of the spleen unclear if this is of splenic or pancreatic origin. Plastic stent spanning the common bile duct. Please correlate with history..
[2020-01-25 03:48] LABS: APPEARANCE,URINE CLEAR; BILIRUBIN,URINE NEGATIVE (NEGATIVE); COLOR,URINE YELLOW; GLUCOSE, URINE NEGATIVE (NEGATIVE); KETONES,URINE TRACE mg/dL (NEGATIVE); LEUKOCYTE ESTERASE,URINE NEGATIVE (NEGATIVE); NITRITE,URINE NEGATIVE (NEGATIVE); PROTEIN,URINE NEGATIVE (NEGATIVE); URINE SPECIFIC GRAVITY 1.031
[2020-01-25 04:04] LABS: URINE AMPHETAMINES SCREEN NEGATIVE; URINE BARBITURATES SCREEN NEGATIVE; URINE BENZODIAZEPINES SCREEN NEGATIVE; URINE COCAINE SCREEN NEGATIVE; URINE MARIJUANA (THC) SCREEN NEGATIVE; URINE METHADONE SCREEN NEGATIVE; URINE PHENCYCLIDINE SCREEN NEGATIVE
[2020-01-25] MEDS ORDERED: LORAZEPAM INJ 2 MG/1 ML VIAL IV ONE (05:55)
[2020-01-25] MEDS ORDERED: ACETAMINOPHEN 325 MG TABLET PO ONE (05:58)
[2020-01-25] MEDS ORDERED: MAGNESIUM HYDROXIDE SUSP 30 ML UDCUP PO PRN (08:46)
[2020-01-25] MEDS ORDERED: PROMETHAZINE HCL INJ 25 MG/1 ML VIAL IV PRN (08:46)
[2020-01-25] MEDS ORDERED: MAG HYDROX/AL HYDROX/SIMETH SUSP 30 ML UDCUP PO PRN (08:46)
[2020-01-25] MEDS ORDERED: LEVALBUTEROL HCL NEB 1.25 MG/3 ML AMPUL NEB PRN (08:46)
[2020-01-25] MEDS ORDERED: LORAZEPAM INJ 2 MG/1 ML VIAL IV PRN (08:57)
--- NOTE | 2020-01-25 09:18 | RADIOLOGY REPORT (SQ) ---
EXAM DESCRIPTION: CHEST SINGLE VIEW IMAGES COMPLETED DATE/TIME: 01/25/2020 8:58 am REASON FOR STUDY: fever COMPARISON: AP chest 01/04/2020 EXAM PARAMETERS: NUMBER OF VIEWS: One view. TECHNIQUE: Single frontal radiographic view of the chest acquired. RADIATION DOSE: NA LIMITATIONS: None. FINDINGS: LUNGS AND PLEURA: Minimal left lateral basilar airspace. Question early or developing pne umonia Remainder of the lungs are grossly clear No pleural no pneumothorax MEDIASTINUM AND HILAR STRUCTURES: No masses. Contour normal. HEART AND VASCULAR STRUCTURES: Heart normal in size. Normal vasculature. BONES: No acute findings. HARDWARE: None in the chest. OTHER: No other significant finding. IMPRESSION: Minimal left lateral lung base airspace disease. TECHNICAL DOCUMENTATION: JOB ID: [id number] 2010 [employer]- All Rights Reserved Reading location - IP/workstation name: [id number]
[2020-01-25 09:21] LABS: INTERNATIONAL RATION (INR) 1.48; PROTHROMBIN TIME 18.1 SEC (11.4-15.4)
[2020-01-25] MEDS ORDERED: GUAIFENESIN SYRP 200 MG/10 ML UDC PO PRN (09:30)
--- NOTE | 2020-01-25 09:34 | PDOC H&P ---
History of Present Illness Patient complains of: Alcohol withdrawal History of Present Illness: NICK ESTRELLA is a 29 year old male with a past medical history significant for alcohol dependence with continuous use, alcohol withdrawal, alcohol withdrawal seizures, tobacco dependence with continuous use since to the emergency department today with shaking chills, uncontrolled shivering, nausea vomiting, abdominal discomfort, dyspnea, and general sense of feeling unwell. Per ED providers note, patient did have 2 seizures while in the emergency department. Upon discussing with the patient, he reports that he retained consciousness throughout and just had uncontrolled shaking of his entire body; do not believe that the patient had full seizure activity but rather profound rigors. Further evaluation in the emergency department revealed Fever 101.2, tachycardia (HR 147), tachypnea (RR 33), hypotension (98/63), leukocytosis (WBC is 13) baseline anemia (hemoglobin 11.9), hypokalemia, elevated LFTs, normal lipase, unremarkable urinalysis and UDS, serum alcohol 286. Head CT is benign. Abdominal CT noted hepatic steatosis with hepatomegaly and a complex cyst/solid lesion adjacent to the lower pole of the spleen. No acute findings. EKG shows sinus rhythm with prolonged QTc interval. He has been provided IV fluids, IV Valium,Tylenol, and referred to the hospitalist service for further evaluation and management of the above-stated complaints and findings. Past Medical History Cardiac Medical History: Reports: None Pulmonary Medical History: Reports: None EENT Medical History: Reports: None Neurological Medical History: Reports: Seizures - ETOH withdrawal seizures Endocrine Medical History: Reports: None Renal/ Medical History: Reports: None GI Medical History: Reports: Hepatitis - Alcohol related Musculoskeltal Medical History: Reports: None Skin Medical History: Reports: None Psychiatric Medical History: Reports: Alcohol Dependency, Substance Abuse, Tobacco Dependency Denies: Depression Traumatic Medical History: Reports: None Hematology: Reports: Anemia Infectious Medical History: Reports: None Past Surgical History Past Surgical History: Reports: Cholecystectomy Social History Information Source: Patient Lives with: Spouse/Significant other Smoking Status: Current Every Day Smoker Cigarettes Packs Per Day: 0.5 Electronic Cigarette use?: No Frequency of Alcohol Use: Heavy Hx Recreational Drug Use: Yes Drugs: Marijuana Hx Prescription Drug Abuse: No - Advance Directive Resuscitation Status: Do Not Resuscitate Family History Family History: Reviewed & Not Pertinent Parental Family History Reviewed: Yes Children Family History Reviewed: Yes Sibling(s) Family History Reviewed.: Yes Medication/Allergy Home Medications: No Home Medications 01/04/20 Allergies/Adverse Reactions: No Known Allergies Allergy (Unverified 01/04/20 05:42) Review of Systems Constitutional: PRESENT: chills, fatigue, fever(s), weakness. ABSENT: headache(s), weight gain, weight loss Eyes: ABSENT: visual disturbances Ears: ABSENT: hearing changes Cardiovascular: ABSENT: chest pain, dyspnea on exertion, edema, orthropnea, palpitations Respiratory: PRESENT: cough, dyspnea. ABSENT: hemoptysis Gastrointestinal: PRESENT: bloating, nausea, vomiting. ABSENT: abdominal pain, constipation, diarrhea, hematemesis, hematochezia Genitourinary: ABSENT: dysuria, hematuria Musculoskeletal: ABSENT: joint swelling Integumentary: ABSENT: rash, wounds Neurological: PRESENT: convulsions. ABSENT: abnormal gait, abnormal speech, confusion, dizziness, focal weakness, syncope Psychiatric: ABSENT: anxiety, depression, homidical ideation, suicidal ideation Endocrine: ABSENT: cold intolerance, heat intolerance, polydipsia, polyuria Hematologic/Lymphatic: ABSENT: easy bleeding, easy bruising Physical Exam Vital Signs: Temp Pulse Resp BP Pulse Ox 99.0 F 101 H 15 105/50 L 94 01/25/20 08:46 01/24/20 23:56 01/25/20 08:01 01/25/20 08:00 01/25/20 08:01 Intake & Output 01/24/20 01/25/20 01/26/20 06:59 06:59 06:59 Intake Total 1000 Balance 1000 Weight 72.575 kg General appearance: PRESENT: disheveled, mild distress, well-developed Head exam: PRESENT: atraumatic, normocephalic Eye exam: PRESENT: conjunctiva pink, EOMI, PERRLA. ABSENT: scleral icterus Mouth exam: PRESENT: moist, tongue midline Teeth exam: PRESENT: edentulous Respiratory exam: PRESENT: clear to auscultation emmanuel, symmetrical, tachypnea, unlabored, other - Pleurisy with deep inspiration. ABSENT: rales, rhonchi, wheezes Cardiovascular exam: PRESENT: +S1, +S2, tachycardia. ABSENT: diastolic murmur, rubs, systolic murmur Pulses: PRESENT: normal dorsalis pedis pul Vascular exam: PRESENT: normal capillary refill GI/Abdominal exam: PRESENT: ascites, normal bowel sounds, soft. ABSENT: d istended, guarding, mass, organolmegaly, rebound, tenderness Rectal exam: PRESENT: deferred Extremities exam: PRESENT: full ROM. ABSENT: calf tenderness, clubbing, pedal edema Neurological exam: PRESENT: alert, awake, oriented to person, oriented to place, oriented to time, oriented to situation, CN II-XII grossly intact. ABSENT: motor sensory deficit Psychiatric exam: PRESENT: appropriate affect, normal mood. ABSENT: homicidal ideation, suicidal ideation Skin exam: PRESENT: dry, intact, jaundice - Mild, warm, other - Scattered ecchymosis. ABSENT: cyanosis, rash Results Laboratory Results: 01/25/20 00:45 01/25/20 00:45 01/25/20 01/25/20 01/25/20 00:45 00:45 03:20 WBC 13.0 H RBC 3.44 L Hgb 11.9 L Hct 34.0 L MCV 99 H MCH 34.7 H MCHC 35.1 RDW 15.2 H Plt Count 352 Seg Neutrophils % 74.8 Sodium 140.6 Potassium 3.2 L Chloride 95 L Carbon Dioxide 30 Anion Gap 16 BUN 4 L Creatinine 0.34 L Est GFR ( Amer) > 60 Glucose 143 H Calcium 8.4 Magnesium 1.7 Total Bilirubin 3.1 H AST 243 H Alkaline Phosphatase 275 H Total Protein 7.4 Albumin 3.7 Lipase 145.4 Urine Color YELLOW Urine Appearance CLEAR Urine pH 6.0 Ur Specific [place] 1.031 Urine Protein NEGATIVE Urine Glucose (UA) NEGATIVE Urine Ketones TRACE H Urine Blood SMALL H Urine Nitrite NEGATIVE Ur Leukocyte Esterase NEGATIVE Urine WBC (Auto) 1 Urine RBC (Auto) 0 Impressions: Abdomen/Pelvis CT 01/25/20 00:45 IMPRESSION: Significant medical hepatic disease. Likely steatosis. Hepatomegaly. Complex cystic and solid lesion adjacent to the lower pole of the spleen unclear if this is of splenic or pancreatic origin. Plastic stent spanning the common bile duct. Please correlate with history.. Head CT 01/25/20 01:55 IMPRESSION: No acute intracranial process is identified. Assessment and Plan - Diagnosis (1) Left lower lobe pneumonia Qualifiers: Pneumonia type: due to unspecified organism Qualified Code(s): J18.9 - Pneumonia, unspecified organism Is this a current diagnosis for this admission?: Yes Plan: COVID-19 pending. D. dimer, Ferritin, CRP, pending. Blood and sputum cultures pending. Patient is provided supplemental oxygen as needed maintain saturations greater than 89%. Patient is empirically placed on IV azithromycin and Rocephin. As needed nebulizer treatments. He is placed on Robitussin as needed. Pulmonary toilet is encouraged with incentive spirometer, flutter valve, early ambulation. (2) Fever Is this a current diagnosis for this admission?: Yes Plan: Unclear etiology; likely multifactorial secondary to acute illness (viral versus bacterial left lower lobe pneumonia) and alcohol intoxication with withdrawal. We will provide IV fluids. PRN Motrin for temp greater than 100.4. Remaining management is elsewhere. (3) Nausea & vomiting Qualifiers: Vomiting type: unspecified Vomiting Intractability: non-intractable Qualified Code(s): R11.2 - Nausea with vomiting, unspecified Is this a current diagnosis for this admission?: Yes Plan: Clear liquid diet; advance as tolerated. IV fluids Antiemetics as needed. (4) Acute alcohol intoxication Qualifiers: Complication of substance-induced condition: uncomplicated Qualified Code(s): F10.920 - Alcohol use, unspecified with intoxication, uncomplicated Is this a current diagnosis for this admission?: Yes Plan: Serum EtOH 286. Strong history of alcohol withdrawal with seizures. Patient is noted to have tachycardia, tachypnea, and fever, although, with borderline hypotension. Per ED provider, patient with 2 seizure episodes since arrival. However, per patient and nursing, patient did not experience altered mentation, postictal episode, and symptoms were more consistent with profound shaking rigors. Patient states that he is not certain that he would like to undergo full detox process; states he does not intend to go to alcohol rehab. "Just want to feel a little bit better." Monitor on continuous telemetry. CK pending. Patient will be placed on scheduled Valium. CIWA scores every 4 hours with sliding scale Ativan. Fall, seizure, aspiration precautions. (5) Alcohol dependence Qualifiers: Substance use status: with intoxication Is this a current diagnosis for this admission?: Yes Plan: Recommended alcohol rehabilitation following detox process; patient declines. We will place patient on IV banana bag; transition to p.o. magnesium, thiamine, folic acid once adequately taking p.o. Discharge planning consulted. (6) Alcoholic cirrhosis of liver without ascites Is this a current diagnosis for this admission?: Yes Plan: Total bili 3.1, AST 243, ALT 73, alk phos 275. D-dimer pending. CT abdomen demonstrated significant hepatic disease, likely steatosis, hepatomegaly. On exam, patient appears mildly jaundiced. We will check hepatitis and HIV Monitor for fluid volume overload Monitor chemistries - Time Time Spent with patient: 35 or more minutes Anticipated Discharge Disposition: Home, Self Care Anticipated Discharge Timeframe: >72 hrs - Inpatient Certification Based on my medical assessment, after consideration of the patient's comorbidities, presenting symptoms, or acuity I expect that the services needed warrant INPATIENT care.: Yes I certify that my determination is in accordance with my understanding of Medicare's requirements for reasonable and necessary INPATIENT services [42 CFR 412.3e].: Yes Medical Necessity: Need Close Monitoring Due to Risk of Patient Decompensation, Need For IV Fluids, Need For Continuous Telemetry Monitoring, Need for IV Antibiotics, Risk of Diagnosis Which Will Require Inpatient Eval/Care/Monitoring
[2020-01-25] MEDS: DOCUSATE SODIUM 100 MG CAPSULE PO SCH ×2 (09:35→17:39)
[2020-01-25] MEDS: PANTOPRAZOLE SODIUM 40 MG VIAL IV SCH ×2 (09:35→21:00)
[2020-01-25] MEDS: LORAZEPAM INJ 2 MG/1 ML VIAL IV PRN (09:36)
[2020-01-25 09:37] LABS: D-DIMER 3.83 ug/mL (0.00-0.50)
[2020-01-25 10:00] LABS: C-REACTIVE PROTEIN 45.7 mg/L (<10.0)
--- NOTE | 2020-01-25 10:37 | EKG REPORT ---
SEVERITY:- ABNORMAL ECG - SINUS RHYTHM PROLONGED QT INTERVAL : Confirmed by: Azra Szymanski MD 25-Jan-2020 10:36:04
[2020-01-25] MEDS: CEFTRIAXONE 1 GM/D5W RTU 1 GM/50 ML RTUPB IV SCH (10:42)
[2020-01-25] MEDS: AZITHROMYCIN 500 MG in DEXTROSE 5%-WATER 250 ML IV SCH ×2 (12:07→13:37)
[2020-01-25] MEDS: IBUPROFEN 600 MG TABLET PO PRN (12:15)
[2020-01-25] MEDS: DIAZEPAM 5 MG TABLET PO SCH ×3 (12:16→23:07)
[2020-01-25] MEDS: HEPARIN SOD (PORCINE) 5,000 UNIT/ML 1 ML VIAL SUBCUT SCH ×2 (14:43→21:00)
[2020-01-25] MEDS: NORMAL SALINE 1000 ML 1,000 ML with POTASSIUM CHLORIDE 20 MEQ, MAGNESIUM SULFATE 8 MEQ,... IV SCH ×5 (17:42)
[2020-01-25] MEDS: OXYCODONE-ACETAMINOPHEN 5-325 MG TABLET PO PRN (20:52)
[2020-01-26] MEDS: OXYCODONE-ACETAMINOPHEN 5-325 MG TABLET PO PRN ×2 (01:37→21:38)
[2020-01-26 06:04] LABS: HEMATOCRIT 29.1 % (37.9-51.0); MEAN CORPUSCULAR HEMOGLOBIN 34.3 pg (27.0-33.4); MEAN CORPUSCULAR HGB CONC 34.4 g/dL (32.0-36.0); MEAN CORPUSCULAR VOLUME 100 fl (80-97); PLATELET COUNT 204 10^3/uL (150-450); RED BLOOD COUNT 2.92 10^6/uL (4.35-5.55); RED CELL DISTRIBUTION WIDTH 15.3 % (11.5-14.0); WHITE BLOOD COUNT 11.9 10^3/uL (4.0-10.5)
[2020-01-26] MEDS: HEPARIN SOD (PORCINE) 5,000 UNIT/ML 1 ML VIAL SUBCUT SCH (06:08)
[2020-01-26] MEDS: DIAZEPAM 5 MG TABLET PO SCH ×4 (06:10→23:45)
[2020-01-26 06:41] LABS: ALBUMIN 2.7 g/dL (3.5-5.0); ALKALINE PHOSPHATASE 184 U/L (38-126); ANION GAP 13 (5-19); ASPARTATE AMINO TRANSFERASE 128 U/L (17-59); BILIRUBIN,DIRECT 2.2 mg/dL (0.0-0.4); BILIRUBIN,TOTAL 3.7 mg/dL (0.2-1.3); BLOOD UREA NITROGEN 9 mg/dL (7-20); CALCIUM 7.1 mg/dL (8.4-10.2); CARBON DIOXIDE 27 mmol/L (22-30); CHLORIDE 95 mmol/L (98-107); GLUCOSE 111 mg/dL (75-110); PHOSPHORUS 1.7 mg/dL (2.5-4.5); POTASSIUM 3.2 mmol/L (3.6-5.0); TOTAL PROTEIN 5.8 g/dL (6.3-8.2)
[2020-01-26] MEDS: DOCUSATE SODIUM 100 MG CAPSULE PO SCH ×2 (09:17→17:19)
[2020-01-26] MEDS: PANTOPRAZOLE SODIUM 40 MG VIAL IV SCH ×2 (09:17→21:33)
[2020-01-26] MEDS: MAGNESIUM SULFATE/D5W 1 GM/100 ML RTUPB IV SCH ×2 (09:18→14:00)
[2020-01-26] MEDS: CEFTRIAXONE 1 GM/D5W RTU 1 GM/50 ML RTUPB IV SCH (10:05)
[2020-01-26] MEDS: LORAZEPAM INJ 2 MG/1 ML VIAL IV PRN (10:06)
[2020-01-26] MEDS ORDERED: NORMAL SALINE 1000 ML 1,000 ML IV ONE (10:45)
[2020-01-26] MEDS: IBUPROFEN 600 MG TABLET PO PRN (11:52)
[2020-01-26] MEDS: METOPROLOL TARTRATE PF/INJ 5 MG/5 ML SDV IV PRN (11:53)
[2020-01-26] MEDS ORDERED: CEFTRIAXONE 1 GM/D5W RTU 1 GM/50 ML RTUPB IV ONE (12:00)
[2020-01-26] MEDS: POTASSI CL 20 MEQ/50 ML RIDER 20 MEQ/50 ML RTUPB IV SCH ×2 (12:09→13:54)
--- NOTE | 2020-01-26 12:44 | PDOC PROGRESS REPORT ---
Subjective Progress Note for:: 01/26/20 Subjective:: NICK ESTRELLA is a 29 year old male with a past medical history significant for alcohol dependence with continuous use, alcohol withdrawal, alcohol withdrawal seizures, tobacco dependence with continuous use who was admitted with acute alcohol intoxication, left lower lobe pneumonia, nausea vomiting diarrhea. Patient is seen on morning rounds. He is found resting in bed on room air. He is alert and oriented x4. He is noted to be diaphoretic with resting tremor; per nursing, patient with auditory and tactile hallucinations earlier. Patient reports continued fever, chills, generalized malaise, fatigue, abdominal discomfort, and pain on breathing (indicates his diaphragmatic/epigastric area). Continues to have nausea without emesis. Does appear acutely ill today. He denies chest pain, palpitations, dyspnea. He has no specific questions or concerns at this time. Nursing notes persistent tachycardia despite IV fluids and PRN Ativan per CIWA scale. Reason For Visit: ALCOHOL WITHDRAWAL,FEVER Physical Exam Vital Signs: Temp Pulse Resp BP Pulse Ox 100.2 F 132 H 16 110/62 92 01/26/20 10:00 01/26/20 10:10 01/26/20 10:10 01/26/20 08:27 01/26/20 10:10 Intake & Output 01/25/20 01/26/20 01/27/20 06:59 06:59 06:59 Intake Total 1000 4723 280 Output Total 1150 Balance 1000 3573 280 Weight 72.575 kg 76.7 kg General appearance: PRESENT: cooperative, disheveled, mild distress, well-developed, well-nourished, other - Acutely ill-appearing Head exam: PRESENT: atraumatic, normocephalic Eye exam: PRESENT: conjunctiva pink, EOMI, PERRLA. ABSENT: scleral icterus Mouth exam: PRESENT: moist, tongue midline Teeth exam: PRESENT: edentulous Respiratory exam: PRESENT: clear to auscultation emmanuel, symmetrical, tachypnea, unlabored. ABSENT: rales, rhonchi, wheezes Cardiovascular exam: PRESENT: RRR, +S1, +S2, tachycardia. ABSENT: diastolic murmur, rubs, systolic murmur Vascular exam: PRESENT: normal capillary refill GI/Abdominal exam: PRESENT: ascites, distended, firm, soft, tenderness. ABSENT: guarding, mass, organolmegaly, rebound Rectal exam: PRESENT: deferred Extremities exam: PRESENT: full ROM. ABSENT: calf tenderness, clubbing, pedal edema Neurological exam: PRESENT: alert, awake, oriented to person, oriented to place, oriented to time, oriented to situation, CN II-XII grossly intact. ABSENT: motor sensory deficit Psychiatric exam: PRESENT: anxious, appropriate affect, normal mood. ABSENT: homicidal ideation, suicidal ideation Skin exam: PRESENT: dry, jaundice - Mild, warm, other - Scattered ecchymosis. ABSENT: cyanosis, rash Results Laboratory Results: 01/26/20 05:39 01/26/20 05:39 01/25/20 01/26/20 01/26/20 14:35 05:39 05:39 WBC 11.9 H RBC 2.92 L Hgb 10.0 L Hct 29.1 L MCV 100 H MCH 34.3 H MCHC 34.4 RDW 15.3 H Plt Count 204 Sodium 134.5 L Potassium 3.2 L Chloride 95 L Carbon Dioxide 27 Anion Gap 13 BUN 9 Creatinine 0.40 L Est GFR ( Amer) > 60 Glucose 111 H Lactic Acid 3.3 H Calcium 7.1 L Phosphorus 1.7 L Magnesium 1.3 L Total Bilirubin 3.7 H AST 128 H Alkaline Phosphatase 184 H Total Protein 5.8 L Albumin 2.7 L Lipase 01/26/20 01/26/20 08:46 08:46 WBC RBC Hgb Hct MCV MCH MCHC RDW Plt Count Sodium Potassium Chloride Carbon Dioxide Anion Gap BUN Creatinine Est GFR ( Amer) Glucose Lactic Acid 2.9 H Calcium Phosphorus Magnesium Total Bilirubin AST Alkaline Phosphatase Total Protein Albumin Lipase 38.6 01/25/20 10:35 Blood Blood Culture (PCR) - Final Escherichia Coli 01/25/20 10:06 Blood Blood Culture (PCR) - Final Escherichia Coli 01/25/20 08:42 Creatine Kinase 67 Impressions: Chest X-Ray 01/25/20 00:00 IMPRESSION: Minimal left lateral lung base airspace disease. Abdomen/Pelvis CT 01/25/20 00:45 IMPRESSION: Significant medical hepatic disease. Likely steatosis. Hepatomegaly. Complex cystic and solid lesion adjacent to the lower pole of the spleen unclear if this is of splenic or pancreatic origin. Plastic stent spanning the common bile duct. Please correlate with history.. Head CT 08/30/20 01:55 IMPRESSION: No acute intracranial process is identified. Assessment and Plan - Diagnosis (1) Sepsis Qualifiers: Sepsis type: Escherichia coli Sepsis acute organ dysfunction status: [facility] acute organ dysfunction Qualified Code(s): A41.51 - Sepsis due to E scherichia coli [E. coli] Is this a current diagnosis for this admission?: Yes Plan: Sepsis due to E. coli bacteremia, suspected on admission on admission, evidenced by fever, tachycardia, hypotension, tachypnea, leukocytosis, Elevated lactic acid, elevated inflammation markers (ferritin, CRP), initially evaluated for COVID and pneumonia; further attention to alcohol withdrawal with alcohol hepatitis; however, today now confirmed to have sepsis with continued fever, tachycardia, tachypnea, and abdominal discomfort with toxic appearance c oncerning for SBP. Blood cultures positive for E. Coli Repeat cultures pending. Stool culture pending Paracentesis with peritoneal fluid culture pending Additional IV fluid bolus today. Continue IV fluids. Continue to trend lactic acid. Continue azithromycin. Increase Rocephin to 2 g daily. Upgrade to IMCU. (2) SBP (spontaneous bacterial peritonitis) Is this a current diagnosis for this admission?: Yes Plan: Cultures as above. Paracentesis pending. Rocephin 2 g daily. (3) Left lower lobe pneumonia Qualifiers: Pneumonia type: due to unspecified organism Qualified Code(s): J18.9 - Pneumonia, unspecified organism Is this a current diagnosis for this admission?: Yes Plan: COVID-19 negative D. dimer 3.83, Ferritin 510, CRP 45.7 Blood culture showed E. coli. Sputum cultures not yet obtained. Patient is provided supplemental oxygen as needed maintain saturations greater than 89%. Patient is empirically placed on IV azithromycin and Rocephin. As needed nebulizer treatments. He is placed on Robitussin as needed. Pulmonary toilet is encouraged with incentive spirometer, flutter valve, early a mbulation. (4) Fever Is this a current diagnosis for this admission?: Yes Plan: Fever trending down; Tmax 101.2/48 hrs, 100.2/24 hrs Likely multifactorial secondary to acute illness (viral versus bacterial left lower lobe pneumonia), possible SBP, and alcohol intoxication with withdrawal. COVID (rapid) negative We will provide IV fluids. PRN Motrin for temp greater than 100.4. Avoid tylenol r/t LFTs Remaining management is elsewhere. (5) Nausea & vomiting Qualifiers: Vomiting type: unspecified Vomiting Intractability: non-intractable Qual ified Code(s): R11.2 - Nausea with vomiting, unspecified Is this a current diagnosis for this admission?: Yes Plan: Improved; nausea without vomiting today. Clear liquid diet; advance as tolerated. IV fluids Antiemetics as needed. (6) Acute alcohol intoxication Qualifiers: Complication of substance-induced condition: uncomplicated Qualified Code(s): F10.920 - Alcohol use, unspecified with intoxication, uncomplicated Is this a current diagnosis for this admission?: Yes Plan: Serum EtOH 286. Strong history of alcohol withdrawal with seizures. Patient is noted to have tachycardia, tachypnea, and fever, although, with borderline hypotension. Per ED provider, patient with 2 seizure episodes since arrival. However, per patient and nursing, patient did not experience altered mentation, postictal ep isode, and symptoms were more consistent with profound shaking rigors. Patient states that he is not certain that he would like to undergo full detox process; states he does not intend to go to alcohol rehab. "Just want to feel a little bit better." CK 67 Monitor on continuous telemetry. Continue scheduled Valium. CIWA scores every 4 hours with sliding scale Ativan. Fall, seizure, aspiration precautions. (7) Alcohol dependence Qualifiers: Substance use status: with intoxication Is this a current diagnosis for this admission?: Yes Plan: Recommended alcohol rehabilitation following detox process; patient declines. We will place patient on IV banana bag; transition to p.o. magnesium, thiamine, folic acid once adequately taking p.o. Discharge planning consulted. (8) Alcoholic cirrhosis of liver without ascites Is this a current diagnosis for this admission?: Yes Plan: Total bili 3.1, AST 243, ALT 73, alk phos 275. D-dimer pending. CT abdomen demonstrated significant hepatic disease, likely steatosis, hepatomegaly. On exam, patient appears mildly jaundiced. We will check hepatitis and HIV Monitor for fluid volume overload Monitor chemistries - Time Time Spent with patient: 35 or more minutes Medications reviewed and adjusted accordingly: Yes Anticipated Discharge Disposition: Home, Self Care Anticipated Discharge Timeframe: >72 hrs
[2020-01-26] MEDS ORDERED: ACETAMINOPHEN 325 MG TABLET PO ONE (13:12)
[2020-01-26 13:50] LABS: PARTIAL THROMBOPLASTIN TIME 44.5 SEC (23.5-35.8)
--- NOTE | 2020-01-26 13:52 | RADIOLOGY REPORT (SQ) ---
EXAM DESCRIPTION: U/S ABD PARACENTESIS IMAGES COMPLETED DATE/TIME: 01/26/2020 1:22 pm REASON FOR STUDY: sepsis, ascites COMPARISON: CT ABDOMEN PELVIS 01/25/2020 RADIATION DOSE: None LIMITATIONS: None. PROCEDURE: Procedure, risks, benefit, and alternative explained to patient who then gave written con sent. The right lower abdominal wall marked using ultrasound guidance. A time-out was called for co rrect marking verification. Abdomen prepped and draped using sterile technique. Local anesthesia ach ieved using 5 ml of 1% lidocaine injection. A 6fr [id number] set was introduced into the perito mir cavity. Fluid was drained. The catheter was removed and entry site was covered with sterile ba ndage. No immediate complications noted. Images acquired during the procedure were stored on PACS. FINDINGS: ENTRY SITE: right lower quadrant. FLUID VOLUME: 650 mL FLUID ANALYSIS: Clear dark straw-colored fluid OTHER: Fluid sent to the lab for testing. IMPRESSION: SUCCESSFUL ULTRASOUND GUIDED PARACENTESIS. COMMENT: Patient medication list reviewed:Yes- Quality ID# [id number]:Eligible professional attests to docu menting in the medical record they obtained, updated, or reviewed the patient's current medications. TECHNICAL DOCUMENTATION: JOB ID: [id number] 2010 [employer]- All Rights Reserved Reading location - IP/workstation name: [id number]
[2020-01-26] MEDS ORDERED: MAGNESIUM SULFATE/D5W 1 GM/100 ML RTUPB IV ONE (14:00)
[2020-01-26 14:04] LABS: FLUID COLOR YELLOW; FLUID SOURCE ABDOMEN; FLUID TYPE PERITONEAL
[2020-01-26 14:05] LABS: FLUID APPEARANCE CLEAR; FLUID VISCOSITY LIQUID
[2020-01-26] MEDS: AZITHROMYCIN 500 MG in DEXTROSE 5%-WATER 250 ML IV SCH (15:11)
[2020-01-26] MEDS: NORMAL SALINE 1000 ML 1,000 ML with POTASSIUM CHLORIDE 20 MEQ, MAGNESIUM SULFATE 8 MEQ,... IV SCH ×5 (17:14)
[2020-01-27] MEDS: LORAZEPAM INJ 2 MG/1 ML VIAL IV PRN ×3 (02:48→22:20)
[2020-01-27 04:37] LABS: HEPATITS B SURFACE ANTIGEN Negative (Negative)
[2020-01-27] MEDS ORDERED: NORMAL SALINE 1000 ML 1,000 ML IV PRN (05:32)
[2020-01-27] MEDS ORDERED: NORMAL SALINE 1000 ML 1,000 ML IV ONE ×2 (05:45→13:41)
[2020-01-27] MEDS: DIAZEPAM 5 MG TABLET PO SCH ×3 (05:52→18:26)
[2020-01-27 06:44] LABS: ABSOLUTE BASOPHILS # (AUTO) 0.1 10^3/uL (0.0-0.2); ABSOLUTE EOSINOPHILS # (AUTO) 0.1 10^3/uL (0.0-0.6); ABSOLUTE LYMPHOCYTES (AUTO) 1.2 10^3/uL (0.5-4.7); ABSOLUTE MONOCYTES (AUTO) 0.6 10^3/uL (0.1-1.4); ABSOLUTE NEUT (AUTO) 8.6 10^3/uL (1.7-8.2); BASOPHILS % (AUTO) 0.6 % (0-2); EOSINOPHILS % (AUTO) 0.7 % (0-6); HEMATOCRIT 30.2 % (37.9-51.0); HEMOGLOBIN 10.5 g/dL (13.5-17.0); LYMPHOCYTES % (AUTO) 11.1 % (13-45); MEAN CORPUSCULAR HEMOGLOBIN 34.7 pg (27.0-33.4); MEAN CORPUSCULAR HGB CONC 34.6 g/dL (32.0-36.0); MEAN CORPUSCULAR VOLUME 100 fl (80-97); MONOCYTES % (AUTO) 5.5 % (3-13); PLATELET COUNT 189 10^3/uL (150-450); RED BLOOD COUNT 3.02 10^6/uL (4.35-5.55); RED CELL DISTRIBUTION WIDTH 15.5 % (11.5-14.0); SEGMENTED NEUTROPHILS % (AUTO) 82.1 % (42-78); TOTAL CELLS COUNTED % (AUTO) 100 %; WHITE BLOOD COUNT 10.5 10^3/uL (4.0-10.5)
[2020-01-27] MEDS: METOPROLOL TARTRATE PF/INJ 5 MG/5 ML SDV IV PRN (06:47)
[2020-01-27] MEDS: OXYCODONE-ACETAMINOPHEN 5-325 MG TABLET PO PRN ×2 (06:48→22:20)
[2020-01-27 07:06] LABS: ALBUMIN 2.5 g/dL (3.5-5.0); ALKALINE PHOSPHATASE 187 U/L (38-126); ANION GAP 8 (5-19); ASPARTATE AMINO TRANSFERASE 91 U/L (17-59); BILIRUBIN,DIRECT 2.7 mg/dL (0.0-0.4); BLOOD UREA NITROGEN 8 mg/dL (7-20); CALCIUM 7.3 mg/dL (8.4-10.2); CARBON DIOXIDE 27 mmol/L (22-30); CHLORIDE 97 mmol/L (98-107); GLUCOSE 117 mg/dL (75-110); POTASSIUM 3.5 mmol/L (3.6-5.0); TOTAL PROTEIN 5.7 g/dL (6.3-8.2)
[2020-01-27 07:07] LABS: HEPATITIS C VIRUS ANTIBODY 0.2 s/co ratio (0.0-0.9)
[2020-01-27] MEDS: ACETAMINOPHEN 325 MG TABLET PO PRN (07:57)
[2020-01-27] MEDS ORDERED: CEFTRIAXONE 2 GM/D5W RTU 2 GM/50 ML RTUPB IV SCH (10:00)
[2020-01-27] MEDS: DOCUSATE SODIUM 100 MG CAPSULE PO SCH ×2 (10:27→18:26)
[2020-01-27] MEDS: PANTOPRAZOLE SODIUM 40 MG VIAL IV SCH ×2 (10:28→21:30)
[2020-01-27] MEDS: AZITHROMYCIN 500 MG in DEXTROSE 5%-WATER 250 ML IV SCH (13:40)
[2020-01-27 13:47] LABS: ALBUMIN BODY FLUID 1.4 g/dL (Not Estab.)
[2020-01-27] MEDS: NORMAL SALINE 1000 ML 1,000 ML with POTASSIUM CHLORIDE 20 MEQ, MAGNESIUM SULFATE 8 MEQ,... IV SCH ×5 (18:26)
--- NOTE | 2020-01-27 20:02 | PDOC PROGRESS REPORT ---
Subjective Progress Note for:: 01/27/20 Subjective:: Kun Flynn is a 29-year-old male with past medical history of alcohol dependence alcohol withdrawal, alcohol withdrawal seizures who was admitted on January 25 due to alcohol intoxication, left lower lobe pneumonia, nausea vomiting and diarrhea. Blood cultures grew E. coli. Started on Rocephin. Paracentesis done, gram stain was negative. Was placed on CIWA protocol. COVID 19 negative. Day 2 hospital stay. Patient was seen and examined at bedside. He remains febrile 102.9. Denies any shortness of breath no abdominal pain no nausea vomiting no chest pain. Preliminary Gram stain of ascites was negative. Currently on Rocephin. On CIWA protocol Reason For Visit: ALCOHOL WITHDRAWAL,FEVER Physical Exam Vital Signs: Temp Pulse Resp BP Pulse Ox 99.1 F 108 H 18 102/63 99 01/27/20 17:26 01/27/20 17:26 01/27/20 17:26 01/27/20 17:26 01/27/20 17:26 Intake & Output 01/26/20 01/27/20 01/28/20 06:59 06:59 06:59 Intake Total 4723 3137 3115 Output Total 1150 1475 100 Balance 3573 1662 3015 Weight 76.7 kg 78.3 kg General appearance: PRESENT: no acute distress, cooperative, disheveled Head exam: PRESENT: atraumatic, normocephalic Eye exam: PRESENT: EOMI, PERRLA Mouth exam: PRESENT: moist Neck exam: PRESENT: full ROM. ABSENT: JVD Respiratory exam: PRESENT: clear to auscultation emmanuel, symmetrical, unlabored. ABSENT: crackles, tachypnea Cardiovascular exam: PRESENT: RRR, +S1, +S2 Pulses: PRESENT: +2 pedal pulses bilateral Vascular exam: PRESENT: pallor GI/Abdominal exam: PRESENT: hypoactive bowel sounds, soft. ABSENT: guarding, tenderness Rectal exam: PRESENT: deferred Extremities exam: PRESENT: full ROM, joint swelling. ABSENT: +2 edema Musculoskeletal exam: PRESENT: full ROM Neurological exam: PRESENT: alert, awake, oriented to person, oriented to place, oriented to time Psychiatric exam: PRESENT: flat affect Results Laboratory Results: 01/27/20 05:46 01/27/20 05:46 01/26/20 01/27/20 01/27/20 12:50 05:46 05:46 WBC 10.5 RBC 3.02 L Hgb 10.5 L Hct 30.2 L MCV 100 H MCH 34.7 H MCHC 34.6 RDW 15.5 H Plt Count 189 Seg Neutrophils % 82.1 H Sodium 131.6 L Potassium 3.5 L Chloride 97 L Carbon Dioxide 27 Anion Gap 8 BUN 8 Creatinine 0.38 L Est GFR ( Amer) > 60 Glucose 117 H Lactic Acid Calcium 7.3 L Total Bilirubin 4.0 H AST 91 H Alkaline Phosphatase 187 H Total Protein 5.7 L Albumin 2.5 L Fluid Glucose 161 Fluid Albumin 1.4 Fluid LDH 78 Fluid Amylase 6 01/27/20 05:46 WBC RBC Hgb Hct MCV MCH MCHC RDW Plt Count Seg Neutrophils % Sodium Potassium Chloride Carbon Dioxide Anion Gap BUN Creatinine Est GFR ( Amer) Glucose Lactic Acid 2.2 H Calcium Total Bilirubin AST Alkaline Phosphatase Total Protein Albumin Fluid Glucose Fluid Albumin Fluid LDH Fluid Amylase 01/25/20 10:35 Blood Blood Culture (PCR) - Final Escherichia Coli 01/25/20 10:35 Blood Blood Culture - Final Escherichia Coli 01/25/20 10:06 Blood Blood Culture (PCR) - Final Escherichia Coli 01/25/20 10:06 Blood Blood Culture - Final Escherichia Coli 01/25/20 08:42 Creatine Kinase 67 Impressions: Chest X-Ray 01/25/20 00:00 IMPRESSION: Minimal left lateral lung base airspace disease. Abdomen/Pelvis CT 01/25/20 00:45 IMPRESSION: Significant medical hepatic disease. Likely steatosis. Hepatomegaly. Complex cystic and solid lesion adjacent to the lower pole of the spleen unclear if this is of splenic or pancreatic origin. Plastic stent spanning the common bile duct. Please correlate with history.. Head CT 01/25/20 01:55 IMPRESSION: No acute intracranial process is identified. Paracentesis Ultrasound 01/26/20 00:00 IMPRESSION: SUCCESSFUL ULTRASOUND GUIDED PARACENTESIS. Assessment and Plan - Diagnosis (1) Sepsis Qualifiers: Sepsis type: Escherichia coli Sepsis acute organ dysfunction status: without acute organ dysfunction Qualified Code(s): A41.51 - Sepsis due to Escherichia coli [E. coli] Is this a current diagnosis for this admission?: Yes Plan: Sepsis due to E. coli bacteremia, suspected on admission on admission, evidenced by fever, tachycardia, hypotension, tachypnea, leukocytosis, Elevated lactic acid, elevated inflammation markers (ferritin, CRP), initially evaluated for COVID and pneumonia; further attention to alcohol withdrawal with alcohol hepatitis; however, today now confirmed to have sepsis with continued fever, tachycardia, tachypnea, and abdominal discomfort with toxic appearance concerning for SBP. -Blood cultures positive for E. Coli -Repeat cultures no growth x 1 -Paracentesis with peritoneal fluid gram stain negative, culture pending - Continue IV fluids. - lactic 2.2 will repeat - continue ceftriaxone per blood culture susceptible. Will switch to zosyn tomorrow if he is still febrile (2) SBP (spontaneous bacterial peritonitis) Is this a current diagnosis for this admission?: Yes Plan: - s/p paracentesis - preliminary ascitic fluid culture and gram stain negative - continue rocephin for now (3) Left lower lobe pneumonia Qualifiers: Pneumonia type: due to unspecified organism Qualified Code(s): J18.9 - Pneumonia, unspecified organism Is this a current diagnosis for this admission?: Yes Plan: COVID-19 negative - CXR left lower lobe pneumonia - D. dimer 3.83, Ferritin 510, CRP 45.7 - Blood culture showed E. coli. - Sputum cultures not yet obtained. - Patient is provided supplemental oxygen as needed maintain saturations greater than 89%. - Patient is empirically placed on IV azithromycin and Rocephin. - As needed nebulizer treatments. - He is placed on Robitussin as needed. - Pulmonary toilet is encouraged with incentive spirometer, flutter valve, early ambulation. (4) Acute alcohol intoxication Qualifiers: Complication of substance-induced condition: uncomplicated Qualified Code(s): F10.920 - Alcohol use, unspecified with intoxication, uncomplicated Is this a current diagnosis for this admission?: Yes Plan: Serum EtOH 286 on admission. Last drink few hours prior to admission Strong history of alcohol withdrawal with seizures. Patient is noted to have tachycardia, tachypnea, and fever, although, with borderline hypotension. Per ED provider, patient with 2 seizure episodes since arrival. However, per patient and nursing, patient did not experience altered mentation, postictal episode, and symptoms were more consistent with profound shaking rigors. Patient states that he is not certain that he would like to undergo full detox process; states he does not intend to go to alcohol rehab. "Just want to feel a little bit better." CK 67 Continue scheduled Valium. CIWA scores every 4 hours with sliding scale Ativan. Fall, seizure, aspiration precautions. (5) Alcoholic cirrhosis of liver without ascites Is this a current diagnosis for this admission?: Yes Plan: Total bili 3.1>4.0, AST 243, ALT 73, alk phos 275. - PT/INR 21/1.8 - CT abdomen demonstrated significant hepatic disease, likely steatosis, hepatomegaly. - Hepatitis profile negative, HIV negative - will need EGD for new diagnosis of cirrhosis - advised alcohol abstinence - GI referral outpatient - Time Time Spent with patient: 25-34 minutes Medications reviewed and adjusted accordingly: Yes Anticipated Discharge Disposition: Home, Self Care Anticipated Discharge Timeframe: to be determined
[2020-01-28] MEDS: DIAZEPAM 5 MG TABLET PO SCH ×2 (00:04→05:03)
[2020-01-28] MEDS: LORAZEPAM INJ 2 MG/1 ML VIAL IV PRN (03:20)
[2020-01-28] MEDS: METOPROLOL TARTRATE PF/INJ 5 MG/5 ML SDV IV PRN (05:03)
[2020-01-28 06:09] LABS: ABSOLUTE BASOPHILS # (AUTO) 0.1 10^3/uL (0.0-0.2); ABSOLUTE LYMPHOCYTES (AUTO) 1.5 10^3/uL (0.5-4.7); ABSOLUTE MONOCYTES (AUTO) 1.2 10^3/uL (0.1-1.4); ABSOLUTE NEUT (AUTO) 9.6 10^3/uL (1.7-8.2); BASOPHILS % (AUTO) 0.7 % (0-2); EOSINOPHILS % (AUTO) 0.2 % (0-6); HEMATOCRIT 30.7 % (37.9-51.0); HEMOGLOBIN 10.5 g/dL (13.5-17.0); LYMPHOCYTES % (AUTO) 12.3 % (13-45); MEAN CORPUSCULAR HEMOGLOBIN 34.1 pg (27.0-33.4); MEAN CORPUSCULAR HGB CONC 34.2 g/dL (32.0-36.0); MEAN CORPUSCULAR VOLUME 100 fl (80-97); MONOCYTES % (AUTO) 9.7 % (3-13); PLATELET COUNT 203 10^3/uL (150-450); RED BLOOD COUNT 3.07 10^6/uL (4.35-5.55); RED CELL DISTRIBUTION WIDTH 15.6 % (11.5-14.0); SEGMENTED NEUTROPHILS % (AUTO) 77.1 % (42-78); TOTAL CELLS COUNTED % (AUTO) 100 %; WHITE BLOOD COUNT 12.5 10^3/uL (4.0-10.5)
[2020-01-28 06:34] LABS: ALBUMIN 2.6 g/dL (3.5-5.0); ALKALINE PHOSPHATASE 200 U/L (38-126); ANION GAP 9 (5-19); ASPARTATE AMINO TRANSFERASE 74 U/L (17-59); BILIRUBIN,DIRECT 3.5 mg/dL (0.0-0.4); BLOOD UREA NITROGEN 5 mg/dL (7-20); CARBON DIOXIDE 25 mmol/L (22-30); CHLORIDE 98 mmol/L (98-107); GLUCOSE 108 mg/dL (75-110); POTASSIUM 3.7 mmol/L (3.6-5.0); TOTAL PROTEIN 6.1 g/dL (6.3-8.2)
[2020-01-28] MEDS ORDERED: METOPROLOL TARTRATE PF/INJ 5 MG/5 ML SDV IV ONE (06:45)
[2020-01-28 06:59] LABS: PH BODY FLUID 7.8 (Not Estab.)
[2020-01-28] MEDS ORDERED: NORMAL SALINE 1000 ML 1,000 ML IV ONE ×2 (07:00→14:23)
[2020-01-28 07:11] LABS: CALCIUM 7.1 mg/dL (8.4-10.2)
[2020-01-28] MEDS ORDERED: VANCOMYCIN HCL 0 MG in DEXTROSE 5%-WATER 250 ML IV NR (08:45)
[2020-01-28] MEDS: ACETAMINOPHEN 325 MG TABLET PO PRN (08:52)
[2020-01-28] MEDS ORDERED: METOPROLOL TARTRATE 50 MG TABLET PO SCH (10:00)
[2020-01-28] MEDS ORDERED: ONDANSETRON HCL INJ/PF 4 MG/2 ML SDV ONE (10:09)
[2020-01-28] MEDS ORDERED: ONDANSETRON HCL INJ/PF 4 MG/2 ML SDV IV PRN (10:23)
[2020-01-28] MEDS: NORMAL SALINE 1000 ML 1,000 ML IV PRN ×2 (10:51→17:34)
[2020-01-28] MEDS: DOCUSATE SODIUM 100 MG CAPSULE PO SCH ×2 (10:52→17:34)
[2020-01-28] MEDS: IBUPROFEN 600 MG TABLET PO PRN (10:52)
[2020-01-28] MEDS: VANCOMYCIN HCL 1,250 MG in DEXTROSE 5%-WATER 250 ML IV SCH ×2 (10:52→17:34)
[2020-01-28] MEDS: PANTOPRAZOLE SODIUM 40 MG VIAL IV SCH ×2 (10:52→22:00)
[2020-01-28] MEDS ORDERED: PIPERACILLIN/TAZOBACTAM 3.375 GM VIAL IV SCH (14:00)
[2020-01-28] MEDS: PREDNISOLONE SOD PHOS 15 MG/5 ML ORAL SYRING PO SCH (14:34)
[2020-01-28] MEDS: PIPERACILLIN SODIUM/TAZOBACTAM 3.375 GM in NORMAL SALINE 100 ML IV SCH ×2 (14:36→22:30)
[2020-01-28] MEDS ORDERED: LACTULOSE SYRUP 20 GM/30 ML UDCUP PO PRN (19:21)
--- NOTE | 2020-01-28 19:55 | PDOC PROGRESS REPORT ---
Subjective Progress Note for:: 01/28/20 Subjective:: Kun Flynn is a 29-year-old male with past medical history of alcohol dependence alcohol withdrawal, alcohol withdrawal seizures who was admitted on January 25 due to alcohol intoxication, left lower lobe pneumonia, nausea vomiting and diarrhea. Blood cultures grew E. coli. Started on Rocephin. Paracentesis done, gram stain was negative. Was placed on CIWA protocol. COVID 19 negative. Day 2 hospital stay. Patient was seen and examined at bedside. He remains febrile 102.9. Denies any shortness of breath no abdominal pain no nausea vomiting no chest pain. Preliminary Gram stain of ascites was negative. Currently on Rocephin. On CIWA protocol. Day 3 hospital stay 01/28/20. Patient is seen at bedside. Drowsy but answers questions appropriately. He complains of mild abdominal pain not worse than when he came in, poor appetite, fatigued. Still with high fevers 102, no bowel movement today. No growth on ascitic fluid Gram stain negative, blood cultures 01/25 negative. Bilirubin and liver enzymes continue to trend up. Antibiotics switched from rocephin to vanc and zosyn. Unclear source of high grade fever since ascitic fluid and blood cultures have been negative. Considering acute alcoholic hepatitis with fevers, elevated liver enzymes, elevated bilirubin. Started on prednisolone and monitor for response. Code status DNR, this was con firmed by admitting [employer] and was again discussed with him by his nurse. He wishes to remain DNR Reason For Visit: ALCOHOL WITHDRAWAL,FEVER Physical Exam Vital Signs: Temp Pulse Resp BP Pulse Ox 98.0 F 85 28 H 94/53 L 92 01/28/20 16:57 01/28/20 16:57 01/28/20 16:57 01/28/20 16:57 01/28/20 16:57 Intake & Output 01/27/20 01/28/20 01/29/20 06:59 06:59 06:59 Intake Total 3137 5678 5160 Output Total 1475 375 100 Balance 1662 5303 5060 Weight 78.3 kg 82.1 kg General appearance: PRESENT: other - moderate distress, looks fatigued and weak Head exam: PRESENT: atraumatic, normocephalic Eye exam: PRESENT: EOMI, PERRLA, scleral icterus Ear exam: PRESENT: normal external ear exam Mouth exam: PRESENT: moist Neck exam: PRESENT: full ROM. ABSENT: meningismus Respiratory exam: PRESENT: clear to auscultation emmanuel, symmetrical, tachypnea. ABSENT: rales, wheezes Cardiovascular exam: PRESENT: +S1, +S2, tachycardia. ABSENT: diastolic murmur, systolic murmur Pulses: PRESENT: +2 pedal pulses bilateral Vascular exam: PRESENT: pallor GI/Abdominal exam: PRESENT: ascites, distended, hypoactive bowel sounds, soft, tenderness Extremities exam: PRESENT: full ROM Musculoskeletal exam: PRESENT: full ROM Neurological exam: PRESENT: altered, other - He is awake able to answer questions appropriately, but very drowsy Psychiatric exam: PRESENT: normal mood Skin exam: PRESENT: jaundice Results Laboratory Results: 01/28/20 05:36 01/28/20 05:36 01/26/20 01/27/20 01/28/20 12:50 20:50 05:36 WBC 12.5 H RBC 3.07 L Hgb 10.5 L Hct 30.7 L MCV 100 H MCH 34.1 H MCHC 34.2 RDW 15.6 H Plt Count 203 Seg Neutrophils % 77.1 Sodium Potassium Chloride Carbon Dioxide Anion Gap BUN Creatinine Est GFR ( Amer) Glucose Lactic Acid 1.6 Calcium Total Bilirubin AST Alkaline Phosphatase Ammonia Total Protein Albumin Fluid pH 7.8 01/28/20 01/28/20 01/28/20 05:36 10:45 10:45 WBC RBC Hgb Hct MCV MCH MCHC RDW Plt Count Seg Neutrophils % Sodium 131.7 L Potassium 3.7 Chloride 98 Carbon Dioxide 25 Anion Gap 9 BUN 5 L Creatinine 0.40 L Est GFR ( Amer) > 60 Glucose 108 Lactic Acid 3.4 H Calcium 7.1 L Total Bilirubin 5.0 H AST 74 H Alkaline Phosphatase 200 H Ammonia 54.1 H Total Protein 6.1 L Albumin 2.6 L Fluid pH 01/28/20 15:51 WBC RBC Hgb Hct MCV MCH MCHC RDW Plt Count Seg Neutrophils % Sodium Potassium Chloride Carbon Dioxide Anion Gap BUN Creatinine Est GFR ( Amer) Glucose Lactic Acid 1.8 Calcium Total Bilirubin AST Alkaline Phosphatase Ammonia Total Protein Albumin Fluid pH 01/26/20 12:50 Peritoneal Gram Stain - Final 01/25/20 08:42 Creatine Kinase 67 Impressions: Chest X-Ray 01/25/20 00:00 IMPRESSION: Minimal left lateral lung base airspace disease. Abdomen/Pelvis CT 01/25/20 00:45 IMPRESSION: Significant medical hepatic disease. Likely steatosis. Hepatomegaly. Complex cystic and solid lesion adjacent to the lower pole of the spleen unclear if this is of splenic or pancreatic origin. Plastic stent spanning the common bile duct. Please correlate with history.. Head CT 01/25/20 01:55 IMPRESSION: No acute intracranial process is identified. Paracentesis Ultrasound 01/26/20 00:00 IMPRESSION: SUCCESSFUL ULTRASOUND GUIDED PARACENTESIS. Assessment and Plan - Diagnosis (1) Acute alcoholic hepatitis Is this a current diagnosis for this admission?: Yes Plan: - patient with history of alcohol abuse came in due to alcohol intoxication - +ve ascites s/p drainage - febrile with leukocytosis. repeat blood cultures and ascitic fluid cultures negative so far. - CT abdomen significant medical hepatic disease, likely steatosis, hepatomegaly. - AST 243>74, ALT 73>33 - Bilirubin 3.1>5.0 - PT/INR 21/1.8 - HIV negative, hepatitis panel negative - MAdrey score 31 - started on prednisolone for alcoholic hepatitis. will monitor response. - considering transfer to tertiary care center if no improvement - (2) Sepsis Qualifiers: Sepsis type: Escherichia coli Sepsis acute organ dysfunction status: without acute organ dysfunction Qualified Code(s): A41.51 - Sepsis due to Escherichia coli [E. coli] Is this a current diagnosis for this admission?: Yes Plan: Sepsis due to E. coli bacteremia, suspected on admission, evidenced by fever, tachycardia, hypotension, tachypnea, leukocytosis. Still with tachycardia, tachypnea despite 2 days of rocephin. -Blood cultures positive for E. Coli -Repeat cultures no growth x 2 -Paracentesis with peritoneal fluid gram stain negative, culture no growth - lactic 2.2>3>1.8 will repeat - due to persistent fever episodes, switched abx from rocephin to zosyn and vanc - repeat Bcx ordered - continue IV fluids - monitor VS (3) Hepatic encephalopathy Is this a current diagnosis for this admission?: Yes Plan: - ammonia level 54 high - patient with drowsiness on exam in the setting of acute alcoholic hepatitis - started on lactulose and rifaximin - will monitor mental status. (4) SBP (spontaneous bacterial peritonitis) Is this a current diagnosis for this admission?: Yes Plan: - s/p paracentesis - +ve abdominal tenderness - preliminary ascitic fluid culture and gram stain negative - Abx switched to zosyn and vanc because of persistent fever - (5) Left lower lobe pneumonia Qualifiers: Pneumonia type: due to unspecified organism Qualified Code(s): J18.9 - Pneumonia, unspecified organism Is this a current diagnosis for this admission?: Yes Plan: COVID-19 negative - CXR left lower lobe pneumonia - D. dimer 3.83, Ferritin 510, CRP 45.7 - Blood culture showed E. coli. - Abx switched to vanc and zosyn - As needed nebulizer treatments. - He is placed on Robitussin as needed. - Pulmonary toilet is encouraged with incentive spirometer, flutter valve, early ambulation. (6) Acute alcohol intoxication Qualifiers: Complication of substance-induced condition: uncomplicated Qualified Code(s): F10.920 - Alcohol use, unspecified with intoxication, uncomplicated Is this a current diagnosis for this admission?: Yes Plan: -Serum EtOH 286 on admission. Last drink few hours prior to admission -Strong history of alcohol withdrawal with seizures. -Per ED provider, patient with 2 seizure episodes since arrival. However, per patient and nursing, patient did not experience altered mentation, postictal episode, and symptoms were more consistent with profound shaking rigors. Patient states that he is not certain that he would like to undergo full detox process; states he does not intend to go to alcohol rehab. "Just want to feel a little bit better." - valium discontinued due to altered mental status - CIWA scores every 4 hours with sliding scale Ativan. - Fall, seizure, aspiration precautions. (7) Ascites Qualifiers: Ascites type: due to alcoholic hepatitis Qualified Code(s): K70.11 - Alcoholic hepatitis with ascites Is this a current diagnosis for this admission?: Yes Plan: - s/p drainage - cultures and gram stain negative - likely 2/2 to alcoholic hepatitis - will monitor - Time Time Spent with patient: 35 or more minutes Medications reviewed and adjusted accordingly: Yes Anticipated Discharge Disposition: to be determined Anticipated Discharge Timeframe: to be determined
--- NOTE | 2020-01-28 20:33 | RADIOLOGY REPORT (SQ) ---
XR CHEST 1 VIEW HISTORY: High grade fever. COMPARISON: 01/25/2020 FINDINGS: The heart size is within normal limits. There is no pulmonary vascular congestion. There are patchy airspace opacities in both lungs. No pleural effusions or pneumothorax. No acute bony findings are seen. IMPRESSION: Patchy airspace disease in both lungs suggestive of multifocal pneumonia. This may be bacterial or viral in etiology. Correlate for Covid infection.
[2020-01-28] MEDS: NORMAL SALINE 1000 ML 1,000 ML with POTASSIUM CHLORIDE 20 MEQ, MAGNESIUM SULFATE 8 MEQ,... IV SCH ×5 (21:18)
--- NOTE | 2020-01-28 22:07 | Progress Note ---
Provider Note Provider Note: [facility] ID Telephone Advice Consultation Chart reviewed. Patient is a 29-year-old man with binge drinking/alcohol abuse, ethanol withdrawal seizures, pancreatitis. He was admitted on 01/24 with abdominal pain, fever, seizures. He had leukocytosis, ascites and was found bacteremic. He was diagnosed with sepsis. He had abdominal ultrasound with paracentesis, fluid cultures negative so far. Blood cultures on 01/24 both sets positive for E coli. A CT scan of abdomen and pelvis found a plastic stent in the common bile duct unclear for how long it's been placed. There is also dilatation of pancreatic duct. A complex cystic mass adjacent to the spleen unclear if from pancreatic or splenic etiology. Bilirubin is trending up, alkaline phosphatase as well. He was on ceftriaxone but continued febrile and tachycardic. Therapy was changed to zosyn today. New blood cultures from 01/25 negative to date. ID consulted for recommendations. PMH: Alcohol abuse Seizures Pancreatitis PSH: Biliary stent? Allergies: No Known Allergies Allergy (Unverified 01/04/20 05:42) Medications: No Home Medications 01/04/20 Vital Signs: Temp Pulse Resp BP Pulse Ox 98.0 F 85 28 H 94/53 L 92 01/28/20 16:57 01/28/20 16:57 01/28/20 16:57 01/28/20 16:57 01/28/20 16:57 Intake & Output 01/27/20 01/28/20 01/29/20 06:59 06:59 06:59 Intake Total 3137 5678 5160 Output Total 1475 375 100 Balance 1662 5303 5060 Weight 78.3 kg 82.1 kg Weight/Height Weight 82.1 kg Height 6 ft 2 in Laboratories: 01/28/20 05:36 01/28/20 05:36 MCV 100 fl (80-97) H 01/28/20 05:36 MCH 34.1 pg (27.0-33.4) H 01/28/20 05:36 MCHC 34.2 g/dL (32.0-36.0) 01/28/20 05:36 RDW 15.6 % (11.5-14.0) H 01/28/20 05:36 Seg Neutrophils % 77.1 % (42-78) 01/28/20 05:36 Chloride 98 mmol/L (98-107) 01/28/20 05:36 Carbon Dioxide 25 mmol/L (22-30) 01/28/20 05:36 Anion Gap 9 (5-19) 01/28/20 05:36 Est GFR ( Amer) > 60 (>60) 01/28/20 05:36 Glucose 108 mg/dL (75-110) 01/28/20 05:36 Lactic Acid 1.8 mmol/L (0.7-2.1) 01/28/20 15:51 Calcium 7.1 mg/dL (8.4-10.2) L 01/28/20 05:36 Phosphorus 1.7 mg/dL (2.5-4.5) L 01/26/20 05:39 Magnesium 1.3 mg/dL (1.6-2.3) L 01/26/20 05:39 Ferritin 510.00 ng/mL (17.9-464.0) H 01/25/20 08:42 Total Bilirubin 5.0 mg/dL (0.2-1.3) H 01/28/20 05:36 AST 74 U/L (17-59) H 01/28/20 05:36 Alkaline Phosphatase 200 U/L (38-126) H 01/28/20 05:36 Ammonia 54.1 umol/L (9-33) H 01/28/20 10:45 C-Reactive Protein 45.7 mg/L (<10.0) H 01/25/20 08:42 Total Protein 6.1 g/dL (6.3-8.2) L 01/28/20 05:36 Albumin 2.6 g/dL (3.5-5.0) L 01/28/20 05:36 Lipase 38.6 U/L (23-300) 01/26/20 08:46 Urine Color YELLOW 01/25/20 03:20 Urine Appearance CLEAR 01/25/20 03:20 Urine pH 6.0 (5.0-9.0) 01/25/20 03:20 Ur Specific [place] 1.031 01/25/20 03:20 Urine Protein NEGATIVE mg/dL (NEGATIVE) 01/25/20 03:20 Urine Glucose (UA) NEGATIVE mg/dL (NEGATIVE) 01/25/20 03:20 Urine Ketones TRACE mg/dL (NEGATIVE) H 01/25/20 03:20 Urine Blood SMALL (NEGATIVE) H 01/25/20 03:20 Urine Nitrite NEGATIVE (NEGATIVE) 01/25/20 03:20 Ur Leukocyte Esterase NEGATIVE (NEGATIVE) 01/25/20 03:20 Urine WBC (Auto) 1 /HPF 01/25/20 03:20 Urine RBC (Auto) 0 /HPF 01/25/20 03:20 Fluid Type PERITONEAL 01/26/20 12:50 Fluid Source ABDOMEN 01/26/20 12:50 Fluid Color YELLOW 01/26/20 12:50 Fluid Appearance CLEAR 01/26/20 12:50 Fluid Viscosity LIQUID 01/26/20 12:50 Fluid pH 7.8 (Not Estab.) 01/26/20 12:50 Fluid WBC 739 /uL 01/26/20 12:50 Fluid RBC 372 /uL 01/26/20 12:50 Fluid Glucose 161 mg/dL (.) 01/26/20 12:50 Fluid Albumin 1.4 g/dL (Not Estab.) 01/26/20 12:50 Fluid LDH 78 IU/L (.) 01/26/20 12:50 Fluid Amylase 6 U/L (.) 01/26/20 12:50 01/25/20 08:42 Creatine Kinase 67 Microbiology: Blood cultures: 01/24 E coli 2/2 01/25 NGTD Peritoneal Fluid: 01/25 In process Radiology: Chest X-Ray 01/25/20 00:00 IMPRESSION: Minimal left lateral lung base airspace disease. Abdomen/Pelvis CT 01/25/20 00:45 IMPRESSION: Significant medical hepatic disease. Likely steatosis. Hepatomegaly. Complex cystic and solid lesion adjacent to the lower pole of the spleen unclear if this is of splenic or pancreatic origin. Plastic stent spanning the common bile duct. Please correlate with history.. Head CT 01/25/20 01:55 IMPRESSION: No acute intracranial process is identified. Paracentesis Ultrasound 01/26/20 00:00 IMPRESSION: SUCCESSFUL ULTRASOUND GUIDED PARACENTESIS. Assessment and Recommendations: Patient evaluated for E coli bacteremia in the setting of alcohol abuse, hepatic disease. His peritoneal fluid evaluation is consistent with peritonitis, cultures are in process. There is a plastic stent in the CBD of unknown chronicity, increasing bilirubin and alkaline phosphatase. He also has a cystic mass adjacent to the spleen of unknown origin if pancreatic or splenic, pseudocyst in the setting of previous pancreatitis? In the setting of E coli bacteremia will need to rule out intra abdominal abscess or cholestatic process/infected CBD with stent. May benefit from GI evaluation. In terms of antibiotics, due to intra abdominal process, zosyn is adequate. After source control, if needed, may de escalate to ceftriaxone + metronidazole. He will need a minimum of 2 weeks of antibiotics for bacteremia. This may be extended if there is an abscess or other complications. Kaye Lawrence MD [facility] [phone]
[2020-01-28] MEDS: METOPROLOL TARTRATE 50 MG TABLET PO SCH (22:47)
[2020-01-29] MEDS ORDERED: ALBUMIN HUMAN 50.0 GM/200 ML RTUINJ IV ONE (00:34)
[2020-01-29] MEDS: ALBUMIN HUMAN 12.5 GM/50 ML RTUINJ IV SCH ×4 (01:11→04:55)
[2020-01-29] MEDS: VANCOMYCIN HCL 1,250 MG in DEXTROSE 5%-WATER 250 ML IV SCH ×3 (03:30→17:50)
[2020-01-29] MEDS: PIPERACILLIN SODIUM/TAZOBACTAM 3.375 GM in NORMAL SALINE 100 ML IV SCH ×3 (05:30→21:50)
[2020-01-29 06:28] LABS: INTERNATIONAL RATION (INR) 1.75; PROTHROMBIN TIME 20.5 SEC (11.4-15.4)
[2020-01-29 06:44] LABS: ALBUMIN 2.7 g/dL (3.5-5.0); ALKALINE PHOSPHATASE 156 U/L (38-126); ANION GAP 7 (5-19); ASPARTATE AMINO TRANSFERASE 59 U/L (17-59); BILIRUBIN,TOTAL 5.1 mg/dL (0.2-1.3); BLOOD UREA NITROGEN 7 mg/dL (7-20); CALCIUM 7.3 mg/dL (8.4-10.2); CARBON DIOXIDE 22 mmol/L (22-30); CHLORIDE 104 mmol/L (98-107); GLUCOSE 256 mg/dL (75-110); POTASSIUM 4.4 mmol/L (3.6-5.0)
[2020-01-29 06:52] LABS: ABSOLUTE LYMPHOCYTES (AUTO) 0.7 10^3/uL (0.5-4.7); ABSOLUTE MONOCYTES (AUTO) 0.8 10^3/uL (0.1-1.4); ABSOLUTE NEUT (AUTO) 8.3 10^3/uL (1.7-8.2); BASOPHILS % (AUTO) 0.3 % (0-2); HEMATOCRIT 27.6 % (37.9-51.0); HEMOGLOBIN 9.6 g/dL (13.5-17.0); LYMPHOCYTES % (AUTO) 7.3 % (13-45); MEAN CORPUSCULAR HEMOGLOBIN 35.2 pg (27.0-33.4); MEAN CORPUSCULAR HGB CONC 34.9 g/dL (32.0-36.0); MEAN CORPUSCULAR VOLUME 101 fl (80-97); MONOCYTES % (AUTO) 8.4 % (3-13); PLATELET COUNT 182 10^3/uL (150-450); RED BLOOD COUNT 2.73 10^6/uL (4.35-5.55); RED CELL DISTRIBUTION WIDTH 15.7 % (11.5-14.0); TOTAL CELLS COUNTED % (AUTO) 100 %; WHITE BLOOD COUNT 9.9 10^3/uL (4.0-10.5)
--- NOTE | 2020-01-29 09:46 | PDOC CONSULTATION ---
Consultation Consult Date: 01/29/20 Provider Consulted: LOLA MCDONOUGH Consult reason:: Possible splenic abscess History of Present Illness Admission Date/PCP: 01/25/20 09:29 History of Present Illness: NICK ESTRELLA is a 29 year old male 29-year-old male with alcohol abuse, alcohol withdrawal, tobacco dependent, admitted for fever chills nausea vomiting and abdominal pains on 01/25/2020. CT scan of the abdomen showed hepatitis with solid with cystic component lesion inferior to the spleen about 5 x 4 x 3 cm. Patient had positive blood culture for E. coli. He had paracentesis with the fluid sent for culture but so far has been negative. Past Medical History Cardiac Medical History: Reports: None Pulmonary Medical History: Reports: None EENT Medical History: Reports: None Neurological Medical History: Reports: Seizures - ETOH withdrawal seizures Endocrine Medical History: Reports: None Renal/ Medical History: Reports: None GI Medical History: Reports: Hepatitis - Alcohol related Musculoskeltal Medical History: Reports: None Skin Medical History: Reports: None Psychiatric Medical History: Reports: Alcohol Dependency, Substance Abuse, Tobacco Dependency Denies: Depression Traumatic Medical History: Reports: None Hematology: Reports: Anemia Infectious Medical History: Reports: None Past Surgical History Past Surgical History: Reports: Cholecystectomy Social History Lives with: Spouse/Significant other Smoking Status: Current Every Day Smoker Cigarettes Packs Per Day: 0.5 Electronic Cigarette use?: No Frequency of Alcohol Use: Heavy Hx Recreational Drug Use: Yes Drugs: Marijuana Hx Prescription Drug Abuse: No - Advance Directive Resuscitation Status: Do Not Resuscitate Family History Family History: Reviewed & Not Pertinent Parental Family History Reviewed: Yes Children Family History Reviewed: No Sibling(s) Family History Reviewed.: No Medication/Allergy Home Medications: No Home Medications 01/04/20 Allergies/Adverse Reactions: No Known Allergies Allergy (Unverified 01/04/20 05:42) Review of Systems Constitutional: PRESENT: as per HPI Gastrointestinal: PRESENT: abdominal pain, nausea, vomiting Neurological: PRESENT: tremor(s) Physical Exam Vital Signs: Temp Pulse Resp BP Pulse Ox 97.4 F 88 20 118/71 98 01/29/20 07:11 01/29/20 07:11 01/29/20 03:14 01/29/20 07:11 01/29/20 07:11 Intake & Output 01/28/20 01/29/20 01/30/20 06:59 06:59 06:59 Intake Total 5678 6250 Output Total 375 600 Balance 5303 5650 Weight 82.1 kg 85.6 kg Results Laboratory Results: 01/29/20 06:06 01/29/20 06:06 01/28/20 01/28/20 01/28/20 10:45 10:45 15:51 WBC RBC Hgb Hct MCV MCH MCHC RDW Plt Count Seg Neutrophils % Sodium Potassium Chloride Carbon Dioxide Anion Gap BUN Creatinine Est GFR ( Amer) Glucose Lactic Acid 3.4 H 1.8 Calcium Total Bilirubin AST Alkaline Phosphatase Ammonia 54.1 H Total Protein Albumin 01/28/20 01/29/20 01/29/20 21:53 01:11 06:06 WBC 9.9 RBC 2.73 L Hgb 9.6 L Hct 27.6 L MCV 101 H MCH 35.2 H MCHC 34.9 RDW 15.7 H Plt Count 182 Seg Neutrophils % 84.0 H Sodium Potassium Chloride Carbon Dioxide Anion Gap BUN Creatinine Est GFR ( Amer) Glucose Lactic Acid 2.1 2.8 H Calcium Total Bilirubin AST Alkaline Phosphatase Ammonia Total Protein Albumin 01/29/20 06:06 WBC RBC Hgb Hct MCV MCH MCHC RDW Plt Count Seg Neutrophils % Sodium 133.3 L Potassium 4.4 Chloride 104 Carbon Dioxide 22 Anion Gap 7 BUN 7 Creatinine 0.64 Est GFR ( Amer) > 60 Glucose 256 H Lactic Acid Calcium 7.3 L Total Bilirubin 5.1 H AST 59 Alkaline Phosphatase 156 H Ammonia Total Protein 6.0 L Albumin 2.7 L 01/26/20 12:50 Peritoneal Gram Stain - Final 01/25/20 08:42 Creatine Kinase 67 Impressions: Abdomen/Pelvis CT 01/25/20 00:45 IMPRESSION: Significant medical hepatic disease. Likely steatosis. Hepatomegaly. Complex cystic and solid lesion adjacent to the lower pole of the spleen unclear if this is of splenic or pancreatic origin. Plastic stent spanning the common bile duct. Please correlate with history.. Head CT 01/25/20 01:55 IMPRESSION: No acute intracranial process is identified. Paracentesis Ultrasound 01/26/20 00:00 IMPRESSION: SUCCESSFUL ULTRASOUND GUIDED PARACENTESIS. Chest X-Ray 01/28/20 00:00 IMPRESSION: Patchy airspace disease in both lungs suggestive of multifocal pneumonia. This may be bacterial or viral in etiology. Correlate for Covid infection.
[2020-01-29] MEDS: DOCUSATE SODIUM 100 MG CAPSULE PO SCH ×2 (10:49→17:50)
[2020-01-29] MEDS: METOPROLOL TARTRATE 50 MG TABLET PO SCH ×2 (10:49→22:19)
[2020-01-29] MEDS: PANTOPRAZOLE SODIUM 40 MG VIAL IV SCH ×2 (10:50→21:51)
[2020-01-29] MEDS: PREDNISOLONE SOD PHOS 15 MG/5 ML ORAL SYRING PO SCH (10:51)
[2020-01-29] MEDS: RIFAXIMIN 550 MG TABLET PO SCH ×2 (10:51→17:50)
[2020-01-29 11:15] LABS: VANCOMYCIN,TROUGH 14.5 ug/mL (5.0-20.0)
--- NOTE | 2020-01-29 14:23 | RADIOLOGY REPORT (SQ) ---
EXAM DESCRIPTION: U/S ABDOMEN LIMITED W/O DOP IMAGES COMPLETED DATE/TIME: 01/29/2020 1:35 pm REASON FOR STUDY: ASCITES COMPARISON: None. TECHNIQUE: Limited Static and real time galicia scale imaging performed of the 4 abdominal quadrants an d the midline. LIMITATIONS: None. FINDINGS: ASCITES: Mild ascites. OTHER: No other significant finding. IMPRESSION: Mild ascites. TECHNICAL DOCUMENTATION: JOB ID: [id number] [employer]- All Rights Reserved Reading location - IP/workstation name: [email or web address]
[2020-01-29] MEDS: NORMAL SALINE 1000 ML 1,000 ML with POTASSIUM CHLORIDE 20 MEQ, MAGNESIUM SULFATE 8 MEQ,... IV SCH ×5 (17:50)
[2020-01-29] MEDS ORDERED: DEXTROSE 50%-WATER 25 GM/50 ML DISP.SYRIN IV PRN ×2 (18:02)
[2020-01-29] MEDS ORDERED: DEXTROSE 40% GEL 15 GM TUBE PO PRN ×2 (18:02)
[2020-01-29] MEDS ORDERED: GLUCAGON,HUMAN RECOMB 1 MG INJ IM PRN (18:02)
--- NOTE | 2020-01-29 18:17 | PDOC PROGRESS REPORT ---
Subjective Progress Note for:: 01/29/20 Subjective:: Kun Flynn is a 29-year-old male with past medical history of alcohol dependence alcohol withdrawal, alcohol withdrawal seizures who was admitted on January 25 due to alcohol intoxication, left lower lobe pneumonia, nausea vomiting and diarrhea. Blood cultures grew E. coli. Started on Rocephin. Paracentesis done, gram stain was negative. Was placed on CIWA protocol. COVID 19 negative. Day 2 hospital stay. Patient was seen and examined at bedside. He remains febrile 102.9. Denies any shortness of breath no abdominal pain no nausea vomiting no chest pain. Preliminary Gram stain of ascites was negative. Currently on Rocephin. On CIWA protocol. Day 3 hospital stay 01/28/20. Patient is seen at bedside. Drowsy but answers questions appropriately. He complains of mild abdominal pain not worse than when he came in, poor appetite, fatigued. Still with high fevers 102, no bowel movement today. No growth on ascitic fluid Gram stain negative, blood cultures 01/25 negative. Bilirubin continue to trend up. Antibiotics switched from rocephin to vanc and zosyn. Unclear source of high grade fever since ascitic fluid and blood cultures have been negative. Considering acute alcoholic hepatitis with fevers, elevated liver enzymes, elevated bilirubin. Started on prednisolone and monitor for response. Code status DNR, this was confirmed by admitting ADMINISTRATIVE ASSISTANT RECEPTIONIST and was again discussed with him by his nurse. He wishes to remain DNR. Day 4 hospital stay 01/29/20. Patient is seen and examined at bedside. More alert today but still very weak. He has abdominal pain, poor appetite. Afebrile x 24 hrs. ID consulted for sepsis, recommend GI consult for cystic mass on spleen. Surgery consulted who spoke with radiologist. Surgery recommend IR drainage of cystic mass around spleen and ascitic fluid drainage. DNR status re addressed again today, still remains DNR. Currently on D2 of zosyn and vanc. Bilirubin 5.1 from 5 yesterday. Would continue prednisolone D2 for now. Reason For Visit: ALCOHOL WITHDRAWAL,FEVER Physical Exam Vital Signs: Temp Pulse Resp BP Pulse Ox 97.7 F 81 18 90/55 L 94 01/29/20 16:15 01/29/20 16:15 01/29/20 16:15 01/29/20 16:15 01/29/20 16:15 Intake & Output 01/28/20 01/29/20 01/30/20 06:59 06:59 06:59 Intake Total 5678 6250 260 Output Total 375 600 Balance 5303 5650 260 Weight 82.1 kg 85.6 kg General appearance: PRESENT: other - moderate distress, weak looking Head exam: PRESENT: atraumatic, normocephalic, other - Diaphoretic Eye exam: PRESENT: EOMI, PERRLA Ear exam: PRESENT: normal external ear exam Mouth exam: PRESENT: moist Neck exam: PRESENT: full ROM. ABSENT: JVD, meningismus Respiratory exam: PRESENT: clear to auscultation emmanuel, symmetrical, tachypnea. ABSENT: rales Cardiovascular exam: PRESENT: RRR, +S1, +S2 - normal, tachycardia Pulses: PRESENT: +2 pedal pulses bilateral GI/Abdominal exam: PRESENT: ascites, diminished bowel sounds, distended, firm, hypoactive bowel sounds. ABSENT: guarding, rebound Rectal exam: PRESENT: deferred Extremities exam: PRESENT: +1 edema Musculoskeletal exam: PRESENT: full ROM Neurological exam: PRESENT: awake, other - Drowsy but answers appropriately Psychiatric exam: PRESENT: normal mood Skin exam: PRESENT: jaundice - Mild Results Laboratory Results: 01/29/20 06:06 01/29/20 09:55 01/28/20 01/29/20 01/29/20 21:53 01:11 06:06 WBC 9.9 RBC 2.73 L Hgb 9.6 L Hct 27.6 L MCV 101 H MCH 35.2 H MCHC 34.9 RDW 15.7 H Plt Count 182 Seg Neutrophils % 84.0 H Sodium Potassium Chloride Carbon Dioxide Anion Gap BUN Creatinine Est GFR ( Amer) Glucose Lactic Acid 2.1 2.8 H Calcium Total Bilirubin AST Alkaline Phosphatase Total Protein Albumin 01/29/20 01/29/20 06:06 09:55 WBC RBC Hgb Hct MCV MCH MCHC RDW Plt Count Seg Neutrophils % Sodium 133.3 L Potassium 4.4 Chloride 104 Carbon Dioxide 22 Anion Gap 7 BUN 7 Creatinine 0.64 0.63 Est GFR ( Amer) > 60 > 60 Glucose 256 H Lactic Acid Calcium 7.3 L Total Bilirubin 5.1 H AST 59 Alkaline Phosphatase 156 H Total Protein 6.0 L Albumin 2.7 L 01/26/20 12:50 Peritoneal Gram Stain - Final 01/25/20 08:42 Creatine Kinase 67 Impressions: Abdomen/Pelvis CT 01/25/20 00:45 IMPRESSION: Significant medical hepatic disease. Likely steatosis. Hepatomegaly. Complex cystic and solid lesion adjacent to the lower pole of the spleen unclear if this is of splenic or pancreatic origin. Plastic stent spanning the common bile duct. Please correlate with history.. Head CT 01/25/20 01:55 IMPRESSION: No acute intracranial process is identified. Paracentesis Ultrasound 01/26/20 00:00 IMPRESSION: SUCCESSFUL ULTRASOUND GUIDED PARACENTESIS. Chest X-Ray 01/28/20 00:00 IMPRESSION: Patchy airspace disease in both lungs suggestive of multifocal pneumonia. This may be bacterial or viral in etiology. Correlate for Covid infection. Abdomen Ultrasound 01/29/20 00:00 IMPRESSION: Mild ascites. Assessment and Plan - Diagnosis (1) Acute alcoholic hepatitis Is this a current diagnosis for this admission?: Yes Plan: - patient with history of alcohol abuse came in due to alcohol intoxication - +ve ascites s/p drainage - febrile with leukocytosis. repeat blood cultures and ascitic fluid cultures ne gative so far. - CT abdomen significant medical hepatic disease, likely steatosis, hepatomegaly. - AST 243>74>59, ALT 73>33>26 - Bilirubin 3.1>5.0>5.1 - PT/INR 21/1.8 - HIV negative, hepatitis panel negative - MAdrey score 31 - started on prednisolone for alcoholic hepatitis. will monitor response. - considering transfer to tertiary care center if no improvement - (2) Sepsis Qualifiers: Sepsis type: Escherichia coli Sepsis acute organ dysfunction status: without acute organ dysfunction Qualified Code(s): A41.51 - Sepsis due to Escherichia coli [E. coli] Is this a current diagnosis for this admission?: Yes Plan: Sepsis due to E. coli bacteremia, suspected on admission, evidenced by fever, tachycardia, hypotension, tachypnea, leukocytosis. Still with tachycardia, tachypnea despite 2 days of rocephin. -Blood cultures 01/24 positive for E. Coli - blood culture 01/27 negative x 1 - Paracentesis with peritoneal fluid gram stain negative, culture no growth - lactic 2.2>3>1.8 - continue Zosyn D2, Vanc D2 - ID on board. recommend GI consult for possible drainage of 4.2 x 5 4.6 x 5.3 cm homogenous mass adjacent to the lower pole of the spleen unclear if this is a pancreatic or splenic origin. - Surgery consulted who spoke with radiology who will drain the abscess/mass - continue IV fluids and supportive management - monitor VS (3) Hepatic encephalopathy Is this a current diagnosis for this admission?: Yes Plan: - ammonia level 54 high - patient with drowsiness on exam in the setting of acute alcoholic hepatitis - started on lactulose and rifaximin - mental status much better today that yesterday (4) SBP (spontaneous bacterial peritonitis) Is this a current diagnosis for this admission?: Yes Plan: - s/p paracentesis - +ve abdominal tenderness - preliminary ascitic fluid culture and gram stain negative - Abx switched to zosyn and vanc because of persistent fever - IR to drain ascitic fluid - (5) Left lower lobe pneumonia Qualifiers: Pneumonia type: due to unspecified organism Qualified Code(s): J18.9 - Pneumonia, unspecified organism Is this a current diagnosis for this admission?: Yes Plan: COVID-19 negative - CXR left lower lobe pneumonia - D. dimer 3.83, Ferritin 510, CRP 45.7 - Blood culture showed E. coli. - Abx switched to vanc and zosyn - As needed nebulizer treatments. - He is placed on Robitussin as needed. - Pulmonary toilet is encouraged with incentive spirometer, flutter valve, early ambulation. (6) Acute alcohol intoxication Qualifiers: Complication of substance-induced condition: uncomplicated Qualified Code(s): F10.920 - Alcohol use, unspecified with intoxication, uncomplicated Is this a current diagnosis for this admission?: Yes Plan: -Serum EtOH 286 on admission. Last drink few hours prior to admission -Strong history of alcohol withdrawal with seizures. -Per ED provider, patient with 2 seizure episodes since arrival. However, per patient and nursing, patient did not experience altered mentation, postictal episode, and symptoms were more consistent with profound shaking rigors. Patient states that he is not certain that he would like to undergo full detox process; states he does not intend to go to alcohol rehab. "Just want to feel a little bit better." - valium discontinued due to altered mental status - CIWA scores every 4 hours with sliding scale Ativan. - Fall, seizure, aspiration precautions. (7) Cystic mass of pancreas Is this a current diagnosis for this admission?: Yes Plan: -On CT abdomen results during admission. -Structure immediately adjacent to the lower pole of the spleen estimated at approximately 4.2 x 4.6 x 5.3 cm of unknown etiology unclear if this is pancreatic or splenic origin. - surgery consulted, who recommend IR guided drainage. (8) Ascites Qualifiers: Ascites type: due to alcoholic hepatitis Qualified Code(s): K70.11 - Alcoholic hepatitis with ascites Is this a current diagnosis for this admission?: Yes Plan: - s/p drainage - cultures and gram stain negative - likely 2/2 to alcoholic hepatitis - will monitor (9) Hyperbilirubinemia Is this a current diagnosis for this admission?: Yes Plan: - surgically absent GB - likely from acute alcoholic hepatitis - CTM (10) Hyperglycemia, drug-induced Is this a current diagnosis for this admission?: Yes Plan: - BG 256 likely from prednisolone - starte don sliding scale - accucheck - hypoglycemia protocol - Time Time Spent with patient: 35 or more minutes Medications reviewed and adjusted accordingly: Yes Anticipated Discharge Disposition: to be determined Anticipated Discharge Timeframe: to be determined
[2020-01-29] MEDS: NORMAL SALINE 1000 ML 1,000 ML IV PRN (19:57)
[2020-01-29] MEDS: INSULIN LISPRO 100 UNIT/ML 3 ML VIAL SUBCUT SCH (20:03)
[2020-01-30] MEDS: VANCOMYCIN HCL 1,250 MG in DEXTROSE 5%-WATER 250 ML IV SCH ×3 (02:00→22:05)
[2020-01-30] MEDS ORDERED: MORPHINE SULFATE 10 MG/ML INJ ONE (02:29)
[2020-01-30] MEDS ORDERED: MORPHINE SULFATE 10 MG/ML INJ IV PRN ×2 (02:34→10:22)
[2020-01-30] MEDS: PIPERACILLIN SODIUM/TAZOBACTAM 3.375 GM in NORMAL SALINE 100 ML IV SCH ×2 (05:25→14:35)
[2020-01-30 07:31] LABS: ABSOLUTE LYMPHOCYTES (AUTO) 1.6 10^3/uL (0.5-4.7); ABSOLUTE MONOCYTES (AUTO) 1.2 10^3/uL (0.1-1.4); ABSOLUTE NEUT (AUTO) 9.2 10^3/uL (1.7-8.2); BASOPHILS % (AUTO) 0.2 % (0-2); EOSINOPHILS % (AUTO) 0.1 % (0-6); HEMATOCRIT 26.4 % (37.9-51.0); HEMOGLOBIN 8.9 g/dL (13.5-17.0); LYMPHOCYTES % (AUTO) 13.5 % (13-45); MEAN CORPUSCULAR HEMOGLOBIN 34.3 pg (27.0-33.4); MEAN CORPUSCULAR HGB CONC 33.7 g/dL (32.0-36.0); MEAN CORPUSCULAR VOLUME 102 fl (80-97); MONOCYTES % (AUTO) 9.9 % (3-13); PLATELET COUNT 248 10^3/uL (150-450); RED BLOOD COUNT 2.59 10^6/uL (4.35-5.55); RED CELL DISTRIBUTION WIDTH 15.8 % (11.5-14.0); SEGMENTED NEUTROPHILS % (AUTO) 76.3 % (42-78); TOTAL CELLS COUNTED % (AUTO) 100 %; WHITE BLOOD COUNT 12.1 10^3/uL (4.0-10.5)
[2020-01-30] MEDS: INSULIN LISPRO 100 UNIT/ML 3 ML VIAL SUBCUT SCH ×4 (07:39→18:13)
[2020-01-30 07:54] LABS: ALBUMIN 2.4 g/dL (3.5-5.0); ANION GAP 8 (5-19); ASPARTATE AMINO TRANSFERASE 99 U/L (17-59); BILIRUBIN,DIRECT 1.9 mg/dL (0.0-0.4); BILIRUBIN,TOTAL 2.7 mg/dL (0.2-1.3); BLOOD UREA NITROGEN 10 mg/dL (7-20); CALCIUM 7.2 mg/dL (8.4-10.2); CARBON DIOXIDE 24 mmol/L (22-30); CHLORIDE 104 mmol/L (98-107); GLUCOSE 142 mg/dL (75-110); NEONATAL BILIRUBIN RESULT 0.8 mg/dL (0.1-1.1); POTASSIUM 3.9 mmol/L (3.6-5.0); TOTAL PROTEIN 5.5 g/dL (6.3-8.2)
[2020-01-30 07:55] LABS: ALKALINE PHOSPHATASE 191 U/L (38-126)
[2020-01-30] MEDS ORDERED: LIDOCAINE 2% INJ-PF (20 MG/ML) 2 ML AMPUL ONE (08:13)
[2020-01-30] MEDS ORDERED: ROCURONIUM BROMIDE INJ 50 MG/5 ML VIAL IV ONE (08:13)
[2020-01-30] MEDS ORDERED: NORMAL SALINE 1000 ML 1,000 ML IV PRN (08:16)
[2020-01-30 08:18] LABS: INTERNATIONAL RATION (INR) 1.47
[2020-01-30] MEDS: DOCUSATE SODIUM 100 MG CAPSULE PO SCH ×2 (09:06→18:13)
[2020-01-30] MEDS: METOPROLOL TARTRATE 50 MG TABLET PO SCH (09:12)
[2020-01-30] MEDS: PANTOPRAZOLE SODIUM 40 MG VIAL IV SCH ×2 (09:12→22:19)
[2020-01-30] MEDS: OXYCODONE-ACETAMINOPHEN 5-325 MG TABLET PO PRN ×2 (09:15→13:22)
[2020-01-30] MEDS ORDERED: VITAMIN B COMPLEX TABLET PO SCH (10:00)
[2020-01-30] MEDS: RIFAXIMIN 550 MG TABLET PO SCH ×2 (10:48→21:15)
[2020-01-30] MEDS: PREDNISOLONE SOD PHOS 15 MG/5 ML ORAL SYRING PO SCH (10:48)
[2020-01-30] MEDS ORDERED: PHYTONADIONE 5 MG TABLET PO ONE (12:45)
[2020-01-30] MEDS: MORPHINE SULFATE 10 MG/ML INJ IV PRN ×2 (14:34→17:34)
[2020-01-30] MEDS ORDERED: NORMAL SALINE 250 ML IV PRN ×3 (14:54→14:59)
--- NOTE | 2020-01-30 17:06 | PDOC PROGRESS REPORT ---
Subjective Progress Note for:: 01/30/20 Subjective:: Kun Flynn is a 29-year-old male with past medical history of alcohol dependence alcohol withdrawal, alcohol withdrawal seizures who was admitted on January 25 due to alcohol intoxication, left lower lobe pneumonia, nausea vomiting and diarrhea. Blood cultures grew E. coli. Started on Rocephin. Paracentesis done, gram stain was negative. Was placed on CIWA protocol. COVID 19 negative. Day 2 hospital stay. Patient was seen and examined at bedside. He remains febrile 102.9. Denies any shortness of breath no abdominal pain no nausea vomiting no chest pain. Preliminary Gram stain of ascites was negative. Currently on Rocephin. On CIWA protocol. Day 3 hospital stay 01/28/20. Patient is seen at bedside. Drowsy but answers questions appropriately. He complains of mild abdominal pain not worse than when he came in, poor appetite, fatigued. Still with high fevers 102, no bowel movement today. No growth on ascitic fluid Gram stain negative, blood cultures 01/25 negative. Bilirubin continue to trend up. Antibiotics switched from rocephin to vanc and zosyn. Unclear source of high grade fever since ascitic fluid and blood cultures have been negative. Considering acute alcoholic hepatitis with fevers, elevated liver enzymes, elevated bilirubin. Started on prednisolone and monitor for response. Code status DNR, this was confirmed by admitting ENVIRONMENTAL STUDIES FACULTY MEMBER and was again discussed with him by his nurse. He wishes to remain DNR. Day 4 hospital stay 01/29/20. Patient is seen and examined at bedside. More alert today but still very weak. He has abdominal pain, poor appetite. Afebrile x 24 hrs. ID consulted for sepsis, recommend GI consult for cystic mass on spleen. Surgery consulted who spoke with radiologist. Surgery recommend IR drainage of cystic mass around spleen and ascitic fluid drainage. DNR status re addressed again today, still remains DNR. Currently on D2 of zosyn and vanc. Bilirubin 5.1 from 5 yesterday. Would continue prednisolone D2 for now. Day 5 HS 01/30/20. Patient was seen and examined at bedside. He was still complaining of persistent abdominal pain poor appetite. Afebrile for 48 hrs. Bilirubin down from 5.1>2.7. He was scheduled to undergo drainage of suspected splenic abscess but was cancelled due to prolonged PT/INR. Repeat CT abdomen was done due to persistent abdominal pain which showed active splenic bleeding. Dr. Medina was informed who will take the patient to the OR adn would be transferred to the ICU post op. He is D2 of Zosyn and vanc. received 2 days of rocephin prior. Reason For Visit: ALCOHOL WITHDRAWAL,FEVER Physical Exam Vital Signs: Temp Pulse Resp BP Pulse Ox 98.7 F 99 20 110/68 98 01/30/20 15:06 01/30/20 15:06 01/30/20 15:06 01/30/20 15:06 01/30/20 15:06 Intake & Output 01/29/20 01/30/20 01/31/20 06:59 06:59 06:59 Intake Total 7250 3103 360 Output Total 600 275 Balance 6650 3103 85 Weight 85.6 kg 85.5 kg General appearance: PRESENT: cooperative, mild distress Head exam: PRESENT: atraumatic, normocephalic Eye exam: PRESENT: EOMI, PERRLA Ear exam: PRESENT: normal external ear exam Mouth exam: PRESENT: moist Neck exam: PRESENT: full ROM. ABSENT: JVD, meningismus Respiratory exam: PRESENT: clear to auscultation emmanuel, symmetrical, tachypnea, unlabored. ABSENT: rales Cardiovascular exam: PRESENT: RRR, +S1, +S2, tachycardia Pulses: PRESENT: +2 pedal pulses bilateral GI/Abdominal exam: PRESENT: diminished bowel sounds, distended, guarding, soft, tenderness. ABSENT: rebound Extremities exam: PRESENT: full ROM Musculoskeletal exam: PRESENT: full ROM Neurological exam: PRESENT: alert, awake, oriented to person, oriented to place, oriented to time, oriented to situation Psychiatric exam: PRESENT: normal mood Skin exam: PRESENT: normal color Results Laboratory Results: 01/30/20 06:43 01/30/20 06:43 01/30/20 01/30/20 01/30/20 06:43 06:43 09:28 WBC 12.1 H RBC 2.59 L Hgb 8.9 L Hct 26.4 L MCV 102 H MCH 34.3 H MCHC 33.7 RDW 15.8 H Plt Count 248 Seg Neutrophils % 76.3 Sodium 135.5 L Potassium 3.9 Chloride 104 Carbon Dioxide 24 Anion Gap 8 BUN 10 Creatinine 0.73 Est GFR ( Amer) > 60 Glucose 142 H Calcium 7.2 L Total Bilirubin 2.7 H AST 99 H Alkaline Phosphatase 191 H Total Protein 5.5 L Albumin 2.4 L Blood Type A POSITIVE Antibody Screen NEGATIVE 01/26/20 12:50 Peritoneal Gram Stain - Final 01/26/20 12:50 Peritoneal Body Fluid Culture - Final NO AEROBIC OR ANAEROBIC ORGANISMS RECOVERED 01/25/20 08:42 Creatine Kinase 67 Impressions: Head CT 01/25/20 01:55 IMPRESSION: No acute intracranial process is identified. Paracentesis Ultrasound 01/26/20 00:00 IMPRESSION: SUCCESSFUL ULTRASOUND GUIDED PARACENTESIS. Chest X-Ray 01/28/20 00:00 IMPRESSION: Patchy airspace disease in both lungs suggestive of multifocal pneumonia. This may be bacterial or viral in etiology. Correlate for Covid infection. Abdomen Ultrasound 01/29/20 00:00 IMPRESSION: Mild ascites. Assessment and Plan - Diagnosis (1) Splenic hemorrhage Is this a current diagnosis for this admission?: Yes Plan: - patient complaining of constant abdominal pain - per radiology he has active bleeding of the spleen. Unable to open actual report and PACS images because the system is down - Dr. Medina informed, plan for emergency ex.lap. 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 repeat blood cultures and ascitic fluid cultures negative so far. - CT abdomen significant medical hepatic disease, likely steatosis, hepatomegaly. - AST 243>74>59, ALT 73>33>26 - Bilirubin 3.1>5.0>5.1>2.7 - PT/INR prolonged - HIV negative, hepatitis panel negative - MAdrey score 31 - started on prednisolone for alcoholic hepatitis. Currently D3 - considering transfer to tertiary care center if no improvement - (3) Sepsis Qualifiers: Sepsis type: Escherichia coli Sepsis acute organ dysfunction status: without acute organ dysfunction Qualified Code(s): A41.51 - Sepsis due to Escherichia coli [E. coli] Is this a current diagnosis for this admission?: Yes Plan: Sepsis due to E. coli bacteremia, suspected on admission, evidenced by fever, tachycardia, hypotension, tachypnea, leukocytosis. Still with tachycardia, tachypnea despite 2 days of rocephin. -Blood cultures 01/24 positive for E. Coli - blood culture 01/27 negative x 2 - Paracentesis with peritoneal fluid gram stain negative, culture no growth - lactic 2.2>3>1.8 - continue Zosyn D3, Vanc D3 - ID on board. recommend GI consult for possible drainage of 4.2 x 5 4.6 x 5.3 cm homogenous mass adjacent to the lower pole of the spleen unclear if this is a pancreatic or splenic origin. - continue IV fluids and supportive management - monitor VS (4) Hepatic encephalopathy Is this a current diagnosis for this admission?: Yes Plan: - ammonia level 54 high - patient with drowsiness on exam in the setting of acute alcoholic hepatitis - on lactulose and rifaximin - mental status much better today that yesterday (5) SBP (spontaneous bacterial peritonitis) Is this a current diagnosis for this admission?: Yes Plan: - s/p paracentesis - +ve abdominal tenderness - preliminary ascitic fluid culture and gram stain negative - Abx switched to zosyn and vanc because of persistent fever - IR to drain ascitic fluid - (6) Left lower lobe pneumonia Qualifiers: Pneumonia type: due to unspecified organism Qualified Code(s): J18.9 - Pneumonia, unspecified organism Is this a current diagnosis for this admission?: Yes Plan: COVID-19 negative - CXR left lower lobe pneumonia - D. dimer 3.83, Ferritin 510, CRP 45.7 - Blood culture showed E. coli. - Abx switched to vanc and zosyn - As needed nebulizer treatments. - He is placed on Robitussin as needed. - Pulmonary toilet is encouraged with incentive spirometer, flutter valve, early ambulation. (7) Acute alcohol intoxication Qualifiers: Complication of substance-induced condition: uncomplicated Qualified Code(s): F10.920 - Alcohol use, unspecified with intoxication, uncomplicated Is this a current diagnosis for this admission?: Yes Plan: -Serum EtOH 286 on admission. Last drink few hours prior to admission -Strong history of alcohol withdrawal with seizures. -Per ED provider, patient with 2 seizure episodes since arrival. However, per patient and nursing, patient did not experience altered mentation, postictal episode, and symptoms were more consistent with profound shaking rigors. Patient states that he is not certain that he would like to undergo full detox process; states he does not intend to go to alcohol rehab. "Just want to feel a little bit better." - valium discontinued due to altered mental status - CIWA scores every 4 hours with sliding scale Ativan. - Fall, seizure, aspiration precautions. (8) Cystic mass of pancreas Is this a current diagnosis for this admission?: Yes Plan: -On CT abdomen results during admission. -Structure immediately adjacent to the lower pole of the spleen estimated at approximately 4.2 x 4.6 x 5.3 cm of unknown etiology unclear if this is pancreatic or splenic origin. - to OR for exlap for splenic hemorrhage (9) Ascites Qualifiers: Ascites type: due to alcoholic hepatitis Qualified Code(s): K70.11 - Alcoholic hepatitis with ascites Is this a current diagnosis for this admission?: Yes Plan: - s/p drainage - cultures and gram stain negative - likely 2/2 to alcoholic hepatitis - will monitor (10) Hyperbilirubinemia Is this a current diagnosis for this admission?: Yes Plan: - surgically absent GB - Bili 5.1>2.7 - likely from acute alcoholic hepatitis - CTM (11) Hyperglycemia, drug-induced Is this a current diagnosis for this admission?: Yes Plan: - BG 256 likely from prednisolone - started on sliding scale - accucheck - hypoglycemia protocol - Plan Summary Summary: Patient is being taken to the OR today for emergency exploratory laparotomy secondary to splenic hemorrhage. Per Dr. Medina he will go to the ICU for postop care - Time Time Spent with patient: 35 or more minutes Medications reviewed and adjusted accordingly: Yes Anticipated Discharge Disposition: to be determined Anticipated Discharge Timeframe: to be determined
[2020-01-30] MEDS ORDERED: HYDROMORPHONE HCL INJ/PF 2 MG/ML AMPULE ONE (17:30)
[2020-01-30] MEDS ORDERED: MIDAZOLAM 2 MG/2 ML INJ ONE (17:30)
[2020-01-30] MEDS ORDERED: PROPOFOL INJ 200 MG/20 ML VIAL IV ONE (17:31)
--- NOTE | 2020-01-30 18:43 | RADIOLOGY REPORT (SQ) ---
EXAM DESCRIPTION: [facility]: CT ABDOMEN PELVIS WITH IV CONTRAST CLINICAL HISTORY: 29 years Male; r/o perforation, splenic mass; TECHNIQUE: CT of the abdomen and pelvis using intravenous contrast. All CT scans at this facility use dose modulation, iterative reconstruction, and/or weight based dosing when appropriate to reduce radiation dose to as low as reasonably achievable. COMPARISON: CT 01/25/2020 FINDINGS: Small bilateral pleural effusions are partially visualized, left greater than right. There is associated at least partial atelectasis of both lower lobes. Abdomen: Stomach: No significant distention or surrounding edema. Liver: Diffusely hypodense, as on prior exams. Free fluid over the liver has slightly increased. No ductal distention. Gallbladder: Surgically absent. A biliary stent is in place Pancreas: Several coarse calcifications in the head, as on prior exam. Multiple peripancreatic lymph nodes are similar. Spleen: Heterogeneous hematoma at the inferior splenic margin is larger, 8 cm craniocaudal where it measured 4.8 cm on prior exam. There is also a contrast blush at the superior medial margin of the hematoma, worrisome for active hemorrhage. Right kidney:No hydronephrosis. No focal lesion. Left kidney:No hydronephrosis. No focal lesion. Adrenal glands:Within normal limits Vascular structures: No portal venous filling defects. Aorta and branches are patent. Pelvis: Small bowel:No significant distention. Appendix:Within normal limits Colon:No distention or acute pericolonic edema. Low-density free fluid in the pelvis has increased. No free air. Bones: No acute bone findings. Bladder: Unremarkable. No pelvic mass or adenopathy. IMPRESSION: 1. Splenic hematoma, larger since 01/25/2020. Possible active hemorrhage. 2. Pleural effusions and ascites have increased 3. Biliary stent remains in place. 4. No bowel obstruction or perforation.
[2020-01-30] MEDS ORDERED: CEFOXITIN INJ 2 GM VIAL ONE (19:01)
[2020-01-30] MEDS ORDERED: CEFAZOLIN INJ 1 GM VIAL ONE (19:02)
[2020-01-30] MEDS ORDERED: PROPOFOL 1,000 MG/100 ML INFUS..BTL IV ONE (20:50)
[2020-01-30] MEDS ORDERED: PROPOFOL 1,000 MG/100 ML INFUS..BTL IV PRN (20:58)
[2020-01-30] MEDS ORDERED: DEXTROSE 50%-WATER 25 GM/50 ML DISP.SYRIN IV PRN ×2 (20:59)
[2020-01-30] MEDS ORDERED: DEXTROSE 40% GEL 15 GM TUBE PO PRN ×2 (20:59)
[2020-01-30] MEDS ORDERED: GLUCAGON,HUMAN RECOMB 1 MG INJ SUBCUT PRN (20:59)
[2020-01-30] MEDS ORDERED: RINGERS SOLUTION,LACTATED 1,000 ML IV PRN ×2 (20:59→21:54)
--- NOTE | 2020-01-30 21:12 | Operative Report ---
Operative Report DATE OF SURGERY: 01/30/20 PREOPERATIVE DIAGNOSIS: Enlarging hematoma of the spleen with possible active b leeding POSTOPERATIVE DIAGNOSIS: Same. Markedly enlarged liver with portal hypertension OPERATION: Exploratory laparotomy SURGEON: LOLA MCDONOUGH ANESTHESIA: GA TISSUE REMOVED OR ALTERED: 2 L of peritoneal fluid COMPLICATIONS: Bleeding ESTIMATED BLOOD LOSS: 400 cc QUANTITATIVE BLOOD LOSS: 400 INTRAOPERATIVE FINDINGS: Markedly enlarged left lobe of the liver in comparison to the left lateral gutter and covering the spleen. The stomach is pulled towards the left lateral gutter with gastrocolic ligament with multiple dilated veins. This was also plastered towards the left lateral gutter. The white line of Toldt has some neovascularization that just touching it because bleeding. Unable to identify the spleen PROCEDURE: Patient was placed in supine position and after adequate general anesthesia the abdomen was then prepped and draped in the usual sterile fashion. Appropriate timeout was then called. Next a midline incision was then made from the xiphoid to below the umbilicus. There was some considerable amount of bleeding at the subcutaneous area and this was controlled with electrocautery. The fascia was then opened and a gush of clear yellowish-green fluid extruded out. The rest of the fluid was suctioned after the fascia was completely opened.. Peritoneal fluid roughly measured about 2L. The left lobe of the liver appears to be markedly enlarged and fatty that extends to the left lateral gutter. The gastrocolic ligament was plastered with dilated veins. An attempt to dissect the left lateral gutter was done but there was considerable amount of bleeding with neovascularization. Also an attempt was done to get into the lesser sac but gastric colic ligament ligament was markedly adherent and to surrounding structures and with surrounding markedly dilated tortuous veins. The Bookwalter retractor was placed and further attempt to dissect around the area of the spleen was done but again we encountered a lot of bleeding and though the patient's INR was 1.4 and had 2 units of fresh frozen plasma patient still has evidence of coagulopathy. We further gave the another 2 units of fresh frozen plasma in the OR towards the end of the procedure. There the small intestine appears to be intact and not dilated. We felt that trying to dissect further to get to the spleen will be very dangerous and patient may need a lot more blood and since we do not have enough blood in our blood bank patient status may be jeopardized. Because of all this factors we decided to just terminate the procedure since patient appears to be fairly hemodynamically stable at this point. Also I did not see any obvious large hematoma though this might just be well isolated by all the overlying adhesions. I then placed 15 [place] round drain through a stab wound in the left lower quadrant and brought it up to the area of the left upper quadrant where the spleen is supposed to be and also were we had some bleeding. One area was packed with Surgicel and appears to have stopped the bleeding. The fascia was then closed with running suture using single-stranded #1 PDS starting from both ends and tying the 2 middle just above the umbilicus. The subcutaneous layer was then irrigated and the skin closed with alli. Patient tolerated procedure fairly well and brought to the intensive care unit still intubated in guarded condition. The plan is for transfer to a tertiary hospital for possible embolization of the possible splenic bleeding.
[2020-01-30 21:50] LABS: HEMOGLOBIN 8.1 g/dL (13.5-17.0); MEAN CORPUSCULAR HEMOGLOBIN 35.4 pg (27.0-33.4); MEAN CORPUSCULAR HGB CONC 35.1 g/dL (32.0-36.0); MEAN CORPUSCULAR VOLUME 101 fl (80-97); PLATELET COUNT 251 10^3/uL (150-450); RED BLOOD COUNT 2.28 10^6/uL (4.35-5.55); RED CELL DISTRIBUTION WIDTH 15.6 % (11.5-14.0); WHITE BLOOD COUNT 10.8 10^3/uL (4.0-10.5)
--- NOTE | 2020-01-30 21:53 | RADIOLOGY REPORT (SQ) ---
EXAM DESCRIPTION: X-ray, single view of the chest CLINICAL HISTORY: 29 years Male, Intubation COMPARISON: Single view of the chest 01/28/2020 FINDINGS: Lungs: Lung volumes remain low and there is worsening multifocal bilateral patchy consolidation and opacification. Probable left pleural effusion. No pneumothorax. Mediastinum: Endotracheal tube is been place which is in good position and terminates 3.5 cm above the jose. Heart size is enlarged. Bones: Osseous structures are normal. IMPRESSION: 1. Interval worsening multifocal parenchymal lung consolidation. 2. Interval intubation. Endotracheal tube is in good position.
[2020-01-30 22:00] LABS: ALBUMIN 2.7 g/dL (3.5-5.0); ALKALINE PHOSPHATASE 167 U/L (38-126); ANION GAP 7 (5-19); ASPARTATE AMINO TRANSFERASE 132 U/L (17-59); BILIRUBIN,DIRECT 1.8 mg/dL (0.0-0.4); BILIRUBIN,TOTAL 2.6 mg/dL (0.2-1.3); BLOOD UREA NITROGEN 8 mg/dL (7-20); CALCIUM 7.4 mg/dL (8.4-10.2); CARBON DIOXIDE 26 mmol/L (22-30); CHLORIDE 102 mmol/L (98-107); GLUCOSE 154 mg/dL (75-110); POTASSIUM 4.3 mmol/L (3.6-5.0); TOTAL PROTEIN 5.9 g/dL (6.3-8.2)
[2020-01-30] MEDS ORDERED: FAMOTIDINE INJ/PF 20 MG/2 ML SDV IV SCH (22:00)
[2020-01-30] MEDS ORDERED: HEPARIN SOD (PORCINE) 5,000 UNIT/ML 1 ML VIAL SUBCUT SCH (22:00)
[2020-01-30 22:01] LABS: INTERNATIONAL RATION (INR) 1.31; PARTIAL THROMBOPLASTIN TIME 34.3 SEC (23.5-35.8); PROTHROMBIN TIME 16.5 SEC (11.4-15.4)
[2020-01-30 22:03] LABS: AMYLASE < 30 U/L (30-110)
[2020-01-30] MEDS: NORMAL SALINE 1000 ML 1,000 ML with POTASSIUM CHLORIDE 20 MEQ, MAGNESIUM SULFATE 8 MEQ,... IV SCH ×5 (22:04)
--- NOTE | 2020-01-30 22:14 | CRITICAL CARE ADMISSION REPORT ---
HPI Date:: 01/30/20 Time:: 22:00 Reason for ICU Reason:: Post-op High risk for bleeding, liver failure. Admission Date/Time & PCP: Admission Date/Time: 01/25/20 09:29 Primary Care Provider: HPI: 29-year-old gentleman with a history of severe EtOH, multiple episodes of withdrawal seizures, frequent binge drinking and pancreatitis. Patient presented to the hospital on 01/25/2020 with seizures. He was also found to be bacteremic with E. coli. On 01/26/2020 he had a paracentesis with 650 mL of fluid removal. CT scan on 01/30/2020 showed small bilateral pleural effusions, free fluid over the liver which is slightly increased from initial CT on 01/25/2020. Pancreas showed several coarse calcifications in the head, spleen showed a heterogeneous hematoma at the inferior splenic margin which was worrisome for active hemorrhage. Patient was therefore taken to the OR today for exploration and possible splenectomy. Please see surgery report for full detail. Patient was transferred to the intensive care unit for stabilization post surgery. He arrived hemodynamically stable, sedated with propofol, and on mec hanical ventilation. As per recommendation from his surgeon, patient is being transferred to an outside hospital for higher level of care. History obtained from:: Medical records - Diagnosis/Plan (1) Alcohol withdrawal Qualifiers: Complication of substance-induced condition: with unspecified complication Qualified Code(s): F10.239 - Alcohol dependence with withdrawal, unspecified Is this a current diagnosis for this admission?: Yes Plan: Continue nutritional support Continue PRN Ativan for seizure activity. Patient is currently status post exploratory laparotomy. No signs of seizure activity since returning from the OR. (2) Splenic hemorrhage Is this a current diagnosis for this admission?: Yes Plan: Patient being transferred to a higher level of care. Plan Summary: Mr. Flynn is a 29-year-old gentleman with probable splenic bleed as well as ongoing pancreatitis, liver cirrhosis and ascites. Course is also complicated by E. coli bacteremia. An attempt was made for splenectomy this afternoon, however spleen currently remains intact. Please see surgical notes for detail. Given patient's possible bleeding instability, as per the surgeons recommendation, he is being transferred to a tertiary care center. He currently remains hemodynamically stable and is sedated on mechanical ventilation. As per patient's request prior to surgery, he will remain DNR. Past Medical History Cardiac Medical History: Reports: None Pulmonary Medical History: Reports: None EENT Medical History: Reports: None Neurological Medical History: Reports: Seizures - ETOH withdrawal seizures Endocrine Medical History: Reports: None Renal/ Medical History: Reports: None GI Medical History: Reports: Hepatitis - Alcohol related Musculoskeltal Medical History: Reports: None Skin Medical History: Reports: None Psychiatric Medical History: Reports: Alcohol Dependency, Substance Abuse, Tobacco Dependency Denies: Depression Traumatic Medical History: Reports: None Hematology: Reports: Anemia Infectious Medical History: Reports: None Past Surgical History Past Surgical History: Reports: Cholecystectomy Social/Family History - Social History Lives with: Spouse/Significant other Smoking Status: Current Every Day Smoker Cigarettes Packs Per Day: 0.5 Frequency of Alcohol Use: Heavy Hx Recreational Drug Use: Yes Drugs: Marijuana Hx Prescription Drug Abuse: No - Medication/Allergies Home Medications: No Home Medications 01/04/20 Allergies/Adverse Reactions: No Known Allergies Allergy (Unverified 01/04/20 05:42) Review of Systems ROS unobtainable: Due to endotracheal tube Physical Exam Vital Signs: Temp Pulse Resp BP Pulse Ox 98.7 F 99 20 110/68 99 01/30/20 15:06 01/30/20 15:06 01/30/20 15:06 01/30/20 15:06 01/30/20 21:15 Intake & Output 01/29/20 01/30/20 01/31/20 06:59 06:59 06:59 Intake Total 7250 3103 861 Output Total 600 2325 Balance 6650 3103 -1464 Weight 85.6 kg 85.5 kg Weight/Height Weight 85.5 kg Height 6 ft 2 in General appearance: PRESENT: no acute distress, thin Head exam: PRESENT: atraumatic, normocephalic Eye exam: PRESENT: EOMI, PERRLA Ear exam: PRESENT: normal external ear exam. ABSENT: bleeding, drainage Mouth exam: PRESENT: moist, neck supple, tongue midline Neck exam: ABSENT: carotid bruit, JVD, lymphadenopathy, thyromegaly Respiratory exam: PRESENT: clear to auscultation emmanuel. ABSENT: accessory muscle use, rales, rhonchi, wheezes Cardiovascular exam: PRESENT: RRR Pulses: PRESENT: +2 pedal pulses bilateral Vascular exam: PRESENT: normal capillary refill GI/Abdominal exam: PRESENT: ascites, diminished bowel sounds, hypoactive bowel sounds Extremities exam: ABSENT: pedal edema Musculoskeletal exam: PRESENT: normal inspection Neurological exam: PRESENT: CN II-XII grossly intact, other - Sedated. ABSENT: alert, awake Skin exam: PRESENT: pallor, warm. ABSENT: abrasion, petechiae, rash Tubes/Lines: PRESENT: Endotracheal Tube Laboratory/Radiographs Laboratory Results: 01/30/20 21:30 01/30/20 01/30/20 01/30/20 06:43 06:43 09:28 WBC 12.1 H RBC 2.59 L Hgb 8.9 L Hct 26.4 L MCV 102 H MCH 34.3 H MCHC 33.7 RDW 15.8 H Plt Count 248 Seg Neutrophils % 76.3 Sodium 135.5 L Potassium 3.9 Chloride 104 Carbon Dioxide 24 Anion Gap 8 BUN 10 Creatinine 0.73 Est GFR ( Amer) > 60 Glucose 142 H Calcium 7.2 L Total Bilirubin 2.7 H AST 99 H Alkaline Phosphatase 191 H Total Protein 5.5 L Albumin 2.4 L Blood Type A POSITIVE Antibody Screen NEGATIVE 01/30/20 21:30 WBC 10.8 H RBC 2.28 L Hgb 8.1 L Hct 23.0 L MCV 101 H MCH 35.4 H MCHC 35.1 RDW 15.6 H Plt Count 251 Seg Neutrophils % Sodium Potassium Chloride Carbon Dioxide Anion Gap BUN Creatinine Est GFR ( Amer) Glucose Calcium Total Bilirubin AST Alkaline Phosphatase Total Protein Albumin Blood Type Antibody Screen 01/26/20 12:50 Peritoneal Gram Stain - Final 01/26/20 12:50 Peritoneal Body Fluid Culture - Final NO AEROBIC OR ANAEROBIC ORGANISMS RECOVERED 01/25/20 08:42 Creatine Kinase 67 Impressions: Head CT 01/25/20 01:55 IMPRESSION: No acute intracranial process is identified. Paracentesis Ultrasound 01/26/20 00:00 IMPRESSION: SUCCESSFUL ULTRASOUND GUIDED PARACENTESIS. Abdomen Ultrasound 01/29/20 00:00 IMPRESSION: Mild ascites. Abdomen/Pelvis CT 01/30/20 00:00 IMPRESSION: 1. Splenic hematoma, larger since 01/25/2020. Possible active hemorrhage. 2. Pleural effusions and ascites have increased 3. Biliary stent remains in place. 4. No bowel obstruction or perforation. Chest X-Ray 01/30/20 21:05 IMPRESSION: 1. Interval worsening multifocal parenchymal lung consolidation. 2. Interval intubation. Endotracheal tube is in good position. All labs, radiographs, diagnostic studies and EKGs were personally reviewed: Yes In addition, reports of radiographic and diagnostic studies were read: Yes Critical Time Critical Time (minutes): 65 -: The care of a critically ill patient is dynamic. This note represents a static moment in the admission process. Orders and treatments may be given sim ultaneously and urgently, and time is not medical collections representative of the treatment process. This patient requires Critical Care secondary to life threatening organ or limb dysfunction. Without Critical Care services, the patient is at risk for increased mortality and morbidity.
--- NOTE | 2020-01-30 22:41 | PDOC TRANSFER SUMMARY ---
General Admission Date/PCP: 01/25/20 09:29 Admission Date: 01/25/20 Transfer Date: 01/31/20 Accepting Facility: [facility] Resuscitation Status: Do Not Resuscitate - Transfer Diagnosis (1) Splenic hemorrhage Is this a current diagnosis for this admission?: Yes (2) Cystic mass of pancreas Is this a current diagnosis for this admission?: Yes (3) Bacteremia due to Escherichia coli Is this a current diagnosis for this admission?: Yes (4) Left lower lobe pneumonia Is this a current diagnosis for this admission?: Yes (5) Acute alcoholic hepatitis Is this a current diagnosis for this admission?: Yes (6) Hepatic encephalopathy Is this a current diagnosis for this admission?: Yes (7) Ascites Is this a current diagnosis for this admission?: Yes (8) Alcohol withdrawal Is this a current diagnosis for this admission?: Yes (9) Alcohol dependence Is this a current diagnosis for this admission?: Yes - Transfer Medications Home Medications: No Home Medications 01/04/20 Transfer Medications: Current Medications Dextrose (Dextrose Inj 50% Syringe (25 Gm/50 Ml)) 12.5 gm IV PRN PRN; Protocol PRN Reason: FOR BG 50-69 IN ALERT PATIENT Stop: 02/29/20 20:58 Dextrose (Dextrose Inj 50% Syringe (25 Gm/50 Ml)) 25 gm IV PRN PRN; Protocol PRN Reason: See Label Comments Stop: 02/29/20 20:58 Famotidine (Pepcid Inj/Pf 20 Mg/2 Ml Sdv) 20 mg IV Q12 DESMOND Stop: 02/29/20 21:59 Last Admin: 01/30/20 22:19 Dose: 20 mg Documented by: Glucagon (Glucagen Inj 1 Mg Vial) 1 mg SUBCUT PRN PRN; Protocol PRN Reason: Evaluate for BG < 70 Stop: 02/29/20 20:58 Glucose (Glutose 40% Gel 15 Gm Tube) 15 gm PO PRN PRN; Protocol PRN Reason: For BG 50-69 in Alert Patient Stop: 02/29/20 20:58 Glucose (Glutose 40% Gel 15 Gm Tube) 30 gm PO PRN PRN; Protocol PRN Reason: FOR BG < 50 IN ALERT PATIENT Stop: 02/29/20 20:58 Guaifenesin (Robitussin Syrup 200 Mg/10 Ml Ud Cup) 200 mg PO Q4HP PRN PRN Reason: COUGH Stop: 02/24/20 09:29 Heparin Sodium (Porcine) (Heparin Inj 5,000 Units/Ml 1 Ml Vial) 5,000 unit SUBCUT Q8 [facility] Stop: 02/29/20 21:59 Last Admin: 01/30/20 22:19 Dose: Not Given Documented by: Vancomycin HCl 1,250 mg/ (Dextrose) 250 mls @ 166.667 mls/hr IV Q8A [facility] Stop: 02/04/20 09:59 Last Admin: 01/30/20 22:05 Dose: 166 mls/hr, 166 mls/hr Documented by: Piperacillin Sod/Tazobactam (Sod 3.375 gm/ Sodium Chloride) 100 mls @ 200 mls/hr IV Q8 [facility] Stop: 02/04/20 13:59 Last Admin: 01/30/20 14:35 Dose: 200 mls/hr Documented by: Potassium Chloride 20 meq/Magnesium Sulfate 8 meq/Thiamine HCl 100 mg/Multivitamins/Minerals 10 ml/Sodium Chloride 1,023 mls @ 250 mls/hr IV QPM [facility] Stop: 02/24/20 17:59 Last Admin: 01/30/20 22:04 Dose: 250 mls/hr Documented by: Sodium Chloride (Nacl 0.9% 250 Ml Iv Soln) 250 mls @ 30 mls/hr IV .DURING TRANSFUSION PRN PRN Reason: THIS MED IS NOT "PRN" Stop: 01/31/20 14:53 Sodium Chloride (Nacl 0.9% 250 Ml Iv Soln) 250 mls @ 0 mls/hr IV CONTINUOUS PRN PRN Reason: AFTER EACH UNIT Stop: 01/31/20 14:53 Sodium Chloride (Nacl 0.9% 250 Ml Iv Soln) 250 mls @ 30 mls/hr IV .DURING TRANSFUSION PRN PRN Reason: THIS MED IS NOT "PRN" Stop: 01/31/20 14:58 Propofol (Diprivan Rtu 1000 Mg/100 Ml Inf.Bottle) 1,000 mg in 100 mls @ 10.26 mls/hr IV CONTINUOUS PRN; Protocol PRN Reason: THIS MED IS NOT "PRN" Stop: 02/29/20 20:57 Last Titration: 01/30/20 22:04 Dose: 40 mcg/kg/min, 20.52 mls/hr Documented by: Lactated Ringer's (Lactated Ringers 1000 Ml Iv Soln) 1,000 mls @ 50 mls/hr IV CONTINUOUS PRN PRN Reason: THIS MED IS NOT "PRN" Stop: 02/29/20 20:58 Insulin Human Lispro (Humalog Insulin 100 Unit/1 Ml 3 Ml Vial) 0 - 12 unit SUBCUT Q6 [facility]; Protocol Stop: 02/28/20 18:59 Last Admin: 01/30/20 18:13 Dose: Not Given Documented by: Lactulose (Cephulac Syrup 20 Gm/30 Ml Udcup) 20 gm PO Q8HP PRN PRN Reason: UNRESOLVED CONSTIPATION Stop: 02/27/20 19:20 Ondansetron HCl (Zofran Inj/Pf 4 Mg/2 Ml Sdv) 4 mg IV Q8HP PRN PRN Reason: FOR NAUSEA/VOMITING Stop: 02/27/20 10:22 Last Admin: 01/28/20 10:52 Dose: 4 mg Documented by: Pantoprazole Sodium (Protonix Iv Inj 40 Mg Vial) 40 mg IV Q12 [facility] Stop: 02/01/20 09:59 Last Admin: 01/30/20 22:19 Dose: 40 mg Documented by: Prednisolone Sodium Phosphate (Prelone Soln 15 Mg/5 Ml Oral Syring) 40 mg PO DAILY [facility] Stop: 02/27/20 12:59 Last Admin: 01/30/20 10:48 Dose: 40 mg Documented by: Rifaximin (Xifaxan 550 Mg Tablet) 550 mg PO BID [facility] Stop: 02/05/20 09:59 Last Admin: 01/30/20 21:15 Dose: Not Given Documented by: Sodium Chloride (Saline Flush 2.5 Ml Monoject Prefil Syrin) 2.5 ml IV Q8 [facility] Stop: 02/29/20 21:59 Last Admin: 01/30/20 22:20 Dose: Not Given Documented by: Vitamin B Complex (Vitamin B Complex Tablet) 1 tab PO DAILY [facility] Stop: 02/29/20 09:59 Last Admin: 01/30/20 10:46 Dose: 1 tab Documented by: - Allergies Allergies/Adverse Reactions: No Known Allergies Allergy (Unverified 01/04/20 05:42) Hospital Course Hospital Course: On admission 01/25/2020: NICK SAMEER is a 29 year old male with a past medical history significant for alcohol dependence with continuous use, alcohol withdrawal, alcohol withdrawal seizures, tobacco dependence with continuous use since to the emergency department today with shaking chills, uncontrolled shivering, nausea vomiting, abdominal discomfort, dyspnea, and general sense of feeling unwell. 01/26/2020: Patient is seen on morning rounds. He is found resting in bed on room air. He is alert and oriented x4. He is noted to be diaphoretic with resting tremor; per nursing, patient with auditory and tactile hallucinations earlier. Nursing notes persistent tachycardia despite IV fluids and PRN Ativan per CIWA scale. Patient reports continued fever, chills, generalized malaise, fatigue, abdominal discomfort, and pain on breathing (indicates his diaphragmatic/epigastric area). Continues to have nausea without emesis. Does appear acutely ill today. He denies chest pain, palpitations, dyspnea. 01/27/2020: Overnight blood cultures grew E. coli. Started on Rocephin. Paracentesis done, gram stain was negative. Was placed on CIWA protocol. COVID 19 negative. Patient was seen and examined at bedside. He remains febrile 102.9. Denies any shortness of breath no abdominal pain no nausea vomiting no chest pain. 01/28/2020 Patient is seen at bedside. Drowsy but answers questions appropriately. He complains of mild abdominal pain not worse than when he came in, poor appetite, fatigued. Still with high fevers 102, no bowel movement today. No growth on ascitic fluid Gram stain negative, blood cultures 01/25 negative. Bilirubin and liver enzymes continue to trend up. Antibiotics switched from rocephin to vanc and zosyn. Unclear source of high grade fever since ascitic fluid and blood cultures have been negative. Considering acute alcoholic hepatitis with fevers, elevated liver enzymes, elevated bilirubin. Started on prednisolone and monitor for response. Code status DNR, this was confirmed by admitting [employer] and was again discussed with him by his nurse. He wishes to remain DNR. 01/29/2020: Patient is seen and examined at bedside. More alert today but still very weak. He has abdominal pain, poor appetite. Afebrile x 24 hrs. ID consulted for sepsis, recommend GI consult for cystic mass on spleen. Surgery consulted who spoke with radiologist. Surgery recommend IR drainage of cystic mass around spleen and ascitic fluid drainage. DNR status re addressed again today, still remains DNR. Currently on D2 of zosyn and vanc. Bilirubin 5.1 from 5 yesterday. Would continue prednisolone D2 for now. 01/30/2020: Patient was seen and examined at bedside. He was still complaining of persistent abdominal pain poor appetite. Afebrile for 48 hrs. Bilirubin down from 5.1>2.7. He was scheduled to undergo drainage of suspected splenic abscess but was cancelled due to prolonged PT/INR. Repeat CT abdomen was done due to persistent abdominal pain which showed active splenic bleeding. Dr. Medina was informed who will take the patient to the OR adn would be transferred to the ICU post op. He is D2 of Zosyn and vanc. received 2 days of rocephin prior. DATE OF SURGERY: 01/30/20 PREOPERATIVE DIAGNOSIS: Enlarging hematoma of the spleen with possible active bleeding POSTOPERATIVE DIAGNOSIS: Same. Markedly enlarged liver with portal hypertension OPERATION: Exploratory laparotomy SURGEON: LOLA MEDINA ANESTHESIA: GA TISSUE REMOVED OR ALTERED: 2 L of peritoneal fluid COMPLICATIONS: Bleeding ESTIMATED BLOOD LOSS: 400 mL QUANTITATIVE BLOOD LOSS: 400 mL INTRAOPERATIVE FINDINGS: Markedly enlarged left lobe of the liver in comparison to the left lateral gutter and covering the spleen. The stomach is pulled towards the left lateral gutter with gastrocolic ligament with multiple dilated veins. This was also plastered towards the left lateral gutter. The white line of Toldt has some neovascularization that just touching it caused bleeding. Unable to identify the spleen. Postoperatively Dr. Medina contacted Dr. Thomas at [facility] and arranged for the patient to be transferred as soon as possible to their surgical teams care. Patient will be in the ICU here at [facility] until the time of transfer. Physical Exam Vital Signs: Temp Pulse Resp BP Pulse Ox 97.6 F 99 20 110/68 99 01/30/20 21:01 01/30/20 15:06 01/30/20 15:06 01/30/20 15:06 01/30/20 21:15 Intake & Output 01/28/20 01/29/20 01/30/20 23:59 23:59 23:59 Intake Total 7779 5833 5578 Output Total 486 110 7221 Balance 7716 4770 -056 Weight 82.1 kg 85.6 kg 85.5 kg General appearance: PRESENT: other - Sedated postoperatively Head exam: PRESENT: atraumatic, normocephalic Results Laboratory Results: 01/30/20 21:30 01/30/20 21:30 01/30/20 01/30/20 01/30/20 06:43 06:43 09:28 WBC 12.1 H RBC 2.59 L Hgb 8.9 L Hct 26.4 L MCV 102 H MCH 34.3 H MCHC 33.7 RDW 15.8 H Plt Count 248 Seg Neutrophils % 76.3 Sodium 135.5 L Potassium 3.9 Chloride 104 Carbon Dioxide 24 Anion Gap 8 BUN 10 Creatinine 0.73 Est GFR ( Amer) > 60 Glucose 142 H Calcium 7.2 L Phosphorus Magnesium Total Bilirubin 2.7 H AST 99 H Alkaline Phosphatase 191 H Ammonia Total Protein 5.5 L Albumin 2.4 L Amylase Lipase Blood Type A POSITIVE Antibody Screen NEGATIVE 01/30/20 01/30/20 01/30/20 21:30 21:30 21:30 WBC 10.8 H RBC 2.28 L Hgb 8.1 L Hct 23.0 L MCV 101 H MCH 35.4 H MCHC 35.1 RDW 15.6 H Plt Count 251 Seg Neutrophils % Sodium 135.4 L Potassium 4.3 Chloride 102 Carbon Dioxide 26 Anion Gap 7 BUN 8 Creatinine 0.70 Est GFR ( Amer) > 60 Glucose 154 H Calcium 7.4 L Phosphorus 4.0 Magnesium 2.0 Total Bilirubin 2.6 H AST 132 H Alkaline Phosphatase 167 H Ammonia 26.6 Total Protein 5.9 L Albumin 2.7 L Amylase < 30 L Lipase 331.0 H Blood Type Antibody Screen 01/26/20 12:50 Peritoneal Gram Stain - Final 01/26/20 12:50 Peritoneal Body Fluid Culture - Final NO AEROBIC OR ANAEROBIC ORGANISMS RECOVERED 01/25/20 08:42 Creatine Kinase 67 Impressions: Head CT 01/25/20 01:55 IMPRESSION: No acute intracranial process is identified. Paracentesis Ultrasound 01/26/20 00:00 IMPRESSION: SUCCESSFUL ULTRASOUND GUIDED PARACENTESIS. Abdomen Ultrasound 01/29/20 00:00 IMPRESSION: Mild ascites. Abdomen/Pelvis CT 01/30/20 00:00 IMPRESSION: 1. Splenic hematoma, larger since 01/25/2020. Possible active hemorrhage. 2. Pleural effusions and ascites have increased 3. Biliary stent remains in place. 4. No bowel obstruction or perforation. Chest X-Ray 01/30/20 21:05 IMPRESSION: 1. Interval worsening multifocal parenchymal lung consolidation. 2. Interval intubation. Endotracheal tube is in good position. Plan Discharge Plan: Patient will be transferred to [facility] to the care of Dr. Thomas as soon as transportation can be arranged. Time Spent: Greater than 30 Minutes
[2020-01-30 23:02] LABS: ARTERIAL BLOOD BASE EXCESS 0.9 mmol/L; ARTERIAL BLOOD H2CO3 1.25 mmol/L (1.05-1.35); ARTERIAL BLOOD HCO3 25.6 mmol/L (20-24); ARTERIAL BLOOD O2 SATURATION 99.2 % (94-98); ARTERIAL BLOOD PCO2 41.4 mmHg (35-45); ARTERIAL BLOOD PH 7.41 (7.35-7.45); ARTERIAL BLOOD PO2 177.7 mmHg (80-100); ARTERIAL BLOOD TOTAL CO2 26.9 mmol/L (23-27)
[2020-01-30 23:03] LABS: ARTERIAL BLOOD FIO2 70%
[2020-01-30 23:29] VITALS: BP 104/68
[2020-01-31] MEDS ORDERED: PHYTONADIONE 5 MG TABLET PO ONE (11:30)
== END 2020-01-30 23:38 | disposition short-term general hospital (02) | DRG 981 ==
LOC: ER 23:49 → EH 01-25 09:29 → 4N 01-25 14:58 → 3S 01-26 19:40 → ICU 01-30 20:38
PROVIDERS: ADMIT Internal Medicine; ATTEND Internal Medicine
PROC: HZ2ZZZZ Detoxification Services for Substance Abuse Treatment (ICD-10-PCS; 2020-01-25)
PROC: 0W9G3ZX Drainage of Peritoneal Cavity, Percutaneous Approach, Diagnostic (ICD-10-PCS; 2020-01-26)
PROC: 0FJ00ZZ Inspection of Liver, Open Approach (ICD-10-PCS; 2020-01-30)
PROC: 30233L1 Transfusion of Nonautologous Fresh Plasma into Peripheral Vein, Percutaneous Approach (ICD-10-PCS; 2020-01-30)
PROC: 30233N1 Transfusion of Nonautologous Red Blood Cells into Peripheral Vein, Percutaneous Approach (ICD-10-PCS; 2020-01-30)
PROC: 5A1935Z Respiratory Ventilation, Less than 24 Consecutive Hours (ICD-10-PCS; 2020-01-30)
PROC: 0BH17EZ Insertion of Endotracheal Airway into Trachea, Via Natural or Artificial Opening (ICD-10-PCS; 2020-01-30)
PROC: [UNRECOGNIZED PROCEDURE] (principal; 2020-01-30 17:30)
DX: F10.239 Alcohol dependence with withdrawal, unspecified (principal); J18.9 Pneumonia, unspecified organism; A41.51 Sepsis due to Escherichia coli [E. coli]; K65.2 Spontaneous bacterial peritonitis; K86.2 Cyst of pancreas; G40.509 Epileptic seizures related to external causes, not intractable, without status epilepticus; K76.6 Portal hypertension; Y90.8 Blood alcohol level of 240 mg/100 ml or more; Z66 Do not resuscitate; K70.11 Alcoholic hepatitis with ascites; K70.40 Alcoholic hepatic failure without coma; D73.5 Infarction of spleen; D64.9 Anemia, unspecified; F10.229 Alcohol dependence with intoxication, unspecified; F17.210 Nicotine dependence, cigarettes, uncomplicated; E87.6 Hypokalemia; K70.0 Alcoholic fatty liver; R11.2 Nausea with vomiting, unspecified; R73.9 Hyperglycemia, unspecified; T38.0X5A Adverse effect of glucocorticoids and synthetic analogues, initial encounter; Y92.9 Unspecified place or not applicable; Z11.59 Encounter for screening for other viral diseases; Z79.899 Other long term (current) drug therapy; Z79.4 Long term (current) use of insulin
CPT/HCPCS: 36415; 36430; 49083; 70450; 71045; 74177; 76705; 790; 80053; 80074; 80202; 80307; 81001; 82042; 82140; 82150; 82550; 82565; 82728; 82803; 82945; 82962; 83605; 83615; 83690; 83735; 83986; 84100; 85025; 85027; 85379; 85610; 85730; 86140; 86701; 86850; 86900; 86901; 86920; 87040; 87070; 87075; 87077; 87150; 87186; 87205; 87252; 87635; 89050; 93005; 93010; 94002; 94667; 94799; 96361; 96374; 96375; 99140; 99285; A9270-GY; C1758; C9113; C9803; J0456; J0690; J0694; J0696; J1170; J1644; J1815; J2060; J2250; J2270; J2405; J2543; J2704; J3360; J3370; J3411; J3475; J3480; J3490; J7030; J7050; J7060; J7510; P9017; P9047; S0028

== ENCOUNTER 2020-02-12 23:58 | Inpatient (IN) | payer SELFPAY ==
--- NOTE | 2020-02-13 00:25 | ER Document Report ---
ED Medical Screen (RME) - General Information source: Patient <NAGI HOWELL - Last Filed: 02/13/20 00:23> <ULISES ROWE JR - Last Filed: 02/13/20 00:59> - General Chief Complaint: Abdominal Pain Stated Complaint: ABDOMINAL PAIN Time Seen by Provider: 02/13/20 00:14 Notes: Patient presents with altered mental status. Patient was recently discharged from [facility] and 3 days ago. Since being home patient has been drinking alcohol. Patient has a history of a splenic hemorrhage, hepatic encephalopathy, and chronic alcohol use. Patient states he was supposed to have his spleen out but was told that the surgery was too dangerous. Patient reports hallucinating and seeing cats and giraffes. Patient with large abdominal stapled incision and drainage to a dressing that is to the left lower quadrant of his abdomen. I have greeted and performed a rapid initial assessment of this patient. A comprehensive ED assessment and evaluation of the patient, analysis of test r esults and completion of the medical decision making process will be conducted by additional ED providers. (NAGI HOWELL) - Related Data Allergies/Adverse Reactions: No Known Allergies Allergy (Verified 02/13/20 00:32) Past Medical History Neurological Medical History: Reports: Hx Seizures - ETOH withdrawal seizures GI Medical History: Reports: Hx Hepatitis - Alcohol related, Hx Pancreatitis Psychiatric Medical History: Denies: Hx Depression Infectious Medical History: Reports: Hx Hepatitis - Alcohol related Past Surgical History: Reports: Hx Cholecystectomy - Immunizations Hx Diphtheria, Pertussis, Tetanus Vaccination: Yes <NAGI HOWELL - Last Filed: 02/13/20 00:23> Physical Exam - Abdominal Inspection: Other - Stapled incision to abdomen, yellow drainage to dressing to left lower quadrant Distension: Distended <NAGI HOWELL - Last Filed: 02/13/20 00:23> - Vital signs Vitals: Temp 98.7 F 02/13/20 00:35 Course - Laboratory Result Diagrams: 02/13/20 00:19 02/13/20 00:19 <ULISES ROWE JR - Last Filed: 02/13/20 00:59> - Vital Signs Vital signs: Temp Pulse Resp BP Pulse Ox 98.7 F 02/13/20 00:35 - Laboratory Laboratory results interpreted by me: 02/13/20 02/13/20 00:19 00:19 WBC 19.6 H RBC 2.54 L Hgb 9.0 L Hct 26.4 L MCV 104 H MCH 35.6 H RDW 16.8 H Plt Count 499 H Lymph % (Auto) 9.2 L Absolute Neuts (auto) 16.1 H Seg Neutrophils % 82.6 H PT 18.7 H APTT 44.0 H
[2020-02-13 00:43] LABS: ABSOLUTE BASOPHILS # (AUTO) 0.2 10^3/uL (0.0-0.2); ABSOLUTE EOSINOPHILS # (AUTO) 0.1 10^3/uL (0.0-0.6); ABSOLUTE LYMPHOCYTES (AUTO) 1.8 10^3/uL (0.5-4.7); ABSOLUTE MONOCYTES (AUTO) 1.4 10^3/uL (0.1-1.4); ABSOLUTE NEUT (AUTO) 16.1 10^3/uL (1.7-8.2); BASOPHILS % (AUTO) 0.9 % (0-2); EOSINOPHILS % (AUTO) 0.3 % (0-6); HEMATOCRIT 26.4 % (37.9-51.0); LYMPHOCYTES % (AUTO) 9.2 % (13-45); MEAN CORPUSCULAR HEMOGLOBIN 35.6 pg (27.0-33.4); MEAN CORPUSCULAR HGB CONC 34.2 g/dL (32.0-36.0); MEAN CORPUSCULAR VOLUME 104 fl (80-97); PLATELET COUNT 499 10^3/uL (150-450); RED BLOOD COUNT 2.54 10^6/uL (4.35-5.55); RED CELL DISTRIBUTION WIDTH 16.8 % (11.5-14.0); SEGMENTED NEUTROPHILS % (AUTO) 82.6 % (42-78); TOTAL CELLS COUNTED % (AUTO) 100 %; WHITE BLOOD COUNT 19.6 10^3/uL (4.0-10.5)
[2020-02-13 00:51] LABS: INTERNATIONAL RATION (INR) 1.55; PROTHROMBIN TIME 18.7 SEC (11.4-15.4)
--- NOTE | 2020-02-13 00:53 | ER Document Report ---
ED General - General Chief Complaint: Altered Mental Status Stated Complaint: ABDOMINAL PAIN Time Seen by Provider: 02/13/20 00:14 Mode of Arrival: Ambulatory Information source: Patient Notes: Dr Page notes 03 Feb 2020 NICK ESTRELLA is a 29 M, who LEFT AGAINST MEDICAL ADVICE. The Patient was admitted on 01/04/20 08:35. NICK ESTRELLA is a 29 year old male past medical history of EtOH abuse with frequent binge drinking, alcohol withdrawal seizure, alcoholic pancreatitis presenting to ED complaining of nausea vomiting and severe muscle cramps for the last 2 days. Patient has been drinking heavily recently, saying that he has been drinking constantly for the last several days, patient also has history of alcohol pancreatitis and has had alcohol withdrawals in the past and been hospitalized. Saw patient this morning after he has already received IV fluids and benzodiaz epines sitting in the bed appearing very anxious and is stating that his lower extremities are cramping up but has nausea and vomiting has resolved since he came to ED. Patient lives with his at home they have a get together, patient has not been exposed to anybody with COVID-19, denies any shortness of breath, fever, chills, chest pain or any urinary symptoms. In ED was noted to be tachypneic, tachycardic, hypokalemic and hypomagnesemic. Hospitalist was consulted for admission. Also CT scan on 29 January revealed splenic hematoma with active hemorrhage and pleural effusions with ascites and biliary stent and no SBO or perforation PER DR DANE BE Hospital Course Hospital Course: On admission 01/25/2020: NICK ESTRELLA is a 29 year old male with a past medical history significant for alcohol dependence with continuous use, alcohol withdrawal, alcohol withdrawal seizures, tobacco dependence with continuous use since to the e mergency department today with shaking chills, uncontrolled shivering, nausea vomiting, abdominal discomfort, dyspnea, and general sense of feeling unwell. 01/26/2020: Patient is seen on morning rounds. He is found resting in bed on room air. He is alert and oriented x4. He is noted to be diaphoretic with resting tremor; per nursing, patient with auditory and tactile hallucinations earlier. Nursing notes persistent tachycardia despite IV fluids and PRN Ativan per CIWA scale. Patient reports continued fever, chills, generalized malaise, fatigue, abdominal discomfort, and pain on breathing (indicates his diaphragmatic/epigastric area). Continues to have nausea without emesis. Does appear acutely ill today. He denies chest pain, palpitations, dyspnea. 01/27/2020: Overnight blood cultures grew E. coli. Started on Rocephin. Paracentesis done, gram stain was negative. Was placed on CIWA protocol. COVID 19 negative. Patient was seen and examined at bedside. He remains febrile 102.9. Denies any shortness of breath no abdominal pain no nausea vomiting no chest pain. 01/28/2020 Patient is seen at bedside. Drowsy but answers questions appropriately. He complains of mild abdominal pain not worse than when he came in, poor appetite, fatigued. Still with high fevers 102, no bowel movement today. No growth on ascitic fluid Gram stain negative, blood cultures 01/25 negative. Bilirubin and liver enzymes continue to trend up. Antibiotics switched from rocephin to vanc and zosyn. Unclear source of high grade fever since ascitic fluid and blood cultures have been negative. Considering acute alcoholic hepatitis with fevers, elevated liver enzymes, elevated bilirubin. Started on prednisolone and monitor for response. Code status DNR, this was confirmed by admitting HOSPITAL INSURANCE REPRESENTATIVE and was again discussed with him by his nurse. He wishes to remain DNR. 01/29/2020: Patient is seen and examined at bedside. More alert today but still very weak. He has abdominal pain, poor appetite. Afebrile x 24 hrs. ID consulted for sepsis, recommend GI consult for cystic mass on spleen. Surgery consulted who spoke with radiologist. Surgery recommend IR drainage of cystic mass around spleen and ascitic fluid drainage. DNR status re addressed again today, still remains DNR. Currently on D2 of zosyn and vanc. Bilirubin 5.1 from 5 yesterday. Would continue prednisolone D2 for now. 01/30/2020: Patient was seen and examined at bedside. He was still complaining of persistent abdominal pain poor appetite. Afebrile for 48 hrs. Bilirubin down from 5.1>2.7. He was scheduled to undergo drainage of suspected splenic abscess but was cancelled due to prolonged PT/INR. Repeat CT abdomen was done due to persistent abdominal pain which showed active splenic bleeding. Dr. Mcdonough was informed who will take the patient to the OR adn would be transferred to the ICU post op. He is D2 of Zosyn and vanc. received 2 days of rocephin prior. DATE OF SURGERY: 01/30/20 PREOPERATIVE DIAGNOSIS: Enlarging hematoma of the spleen with possible active bleeding POSTOPERATIVE DIAGNOSIS: Same. Markedly enlarged liver with portal hypertension OPERATION: Exploratory laparotomy SURGEON: LOLA MCDONOUGH ANESTHESIA: GA TISSUE REMOVED OR ALTERED: 2 L of peritoneal fluid COMPLICATIONS: Bleeding ESTIMATED BLOOD LOSS: 400 mL QUANTITATIVE BLOOD LOSS: 400 mL INTRAOPERATIVE FINDINGS: Markedly enlarged left lobe of the liver in comparison to the left lateral gutter and covering the spleen. The stomach is pulled towards the left lateral gutter with gastrocolic ligament with multiple dilated veins. This was also plastered towards the left lateral gutter. The white line of Toldt has some neovascularization that just touching it caused bleeding. Unable to identify the spleen. Postoperatively Dr. Mcdonough contacted Dr. Thomas at [facility] and arranged for the patient to be transferred as soon as possible to their surgical teams care. Patient will be in the ICU here at [facility] until the time of transfer. 02/13/20 00:35 - ED Nursing Note by WARD CLARKE Accschuyler Num: [id number] : 1990 Patient Age: [age] Y/O MALE, PRESENT BY POV. PT REPORTS THAT HE WAS JUST D/C'D 2 DAYS AGO FROM [facility]. PT HAS A SUTURE LINE, MID-ABD THAT EXTENDS FROM JUST BELOW STERNUM RO SUPRA-PUBIC AREA. PT CAN NOT VERBALIZED WHAT KIND OF SURGICAL PROCEDURE HE HAD. PT IS ALSO REPORTING THAT HE IS HALLUCINATING, AUDIBLE AND VISUAL. PT APPEARS JAUNDICE. PLACE ON MONITOR, 2 IV STARTED, BC X2 COLLECTED WELL LABS COLLECTED AND SENT. ED Medical Screen (Klaudia notes) - General Chief Complaint: Abdominal Pain Stated Complaint: ABDOMINAL PAIN Time Seen by Provider: 02/13/20 00:14 Information source: Patient Notes: Patient presents with altered mental status. Patient was recently discharged from [facility] and 3 days ago. Since being home patient has been drinking alcohol. Patient has a history of a splenic hemorrhage, hepatic encephalopathy, and chronic alcohol use. Patient states he was supposed to have his spleen out but was told that the surgery was too dangerous. Patient reports hallucinating and seeing cats and giraffes. Patient with large abdominal stapled incision and drainage to a dressing that is to the left lower quadrant of his abdomen. MY NOTES 29-year-old male arrives by POV status post surgery midline from epigastric to suprapubic with drainage from left abdominal surgical site which was saturated upon arrival. Ward DE LEON change the dressing. Patient is on antibiotics but according to patient he has been drinking since he returned home on a daily basis. He is actively hallucinating. I spoke with patient at around 0 100 And he was oriented enough to know his 's name Geetha and her phone #[phone]. Patient did not want a Moscoso catheter. He reports he has pain from his left nipple down to his left lower quadrant abdomen. He has a Timothy- Pereira's site that is draining serous fluid. His midline surgery scar appears to be without any erythema or tenderness. He has multiple alli on this area. He reports he was flown out by helicopter and did not remember actually landing in a new hospital. - Related Data Allergies/Adverse Reactions: No Known Allergies Allergy (Verified 02/13/20 00:32) Past Medical History - General Information source: Patient - Social History Smoking Status: Current Every Day Smoker Cigarette use (# per day): Yes Chew tobacco use (# tins/day): No Smoking Education Provided: Yes Frequency of alcohol use: Heavy Drug Abuse: Marijuana Lives with: Family Family History: Reviewed & Not Pertinent Neurological Medical History: Reports: Hx Seizures - ETOH withdrawal seizures GI Medical History: Reports: Hx Hepatitis - Alcohol related, Hx Pancreatitis Psychiatric Medical History: Denies: Hx Depression Infectious Medical History: Reports: Hx Hepatitis - Alcohol related Past Surgical History: Reports: Hx Cholecystectomy - Immunizations Hx Diphtheria, Pertussis, Tetanus Vaccination: Yes Review of Systems - Review of Systems Constitutional: See HPI, Fever, Malaise, Weakness, Weight loss, Recent illness EENT: No symptoms reported Cardiovascular: See HPI, Chest pain - left sided, Dizziness, Lightheaded. denies: Palpitations, Heart racing Respiratory: No symptoms reported Gastrointestinal: See HPI, Abdomen distended Genitourinary: No symptoms reported Male Genitourinary: No symptoms reported Musculoskeletal: No symptoms reported Skin: No symptoms reported Hematologic/Lymphatic: No symptoms reported Neurological/Psychological: No symptoms reported Physical Exam - Vital signs Vitals: Resp 27 H 02/13/20 00:09 Interpretation: Hypotensive - General General appearance: Alert - HEENT Head: Normocephalic, Atraumatic Eyes: Normal Pupils: PERRL Sinus: Normal Nasal: Normal Mouth/Lips: Normal Mucous membranes: Normal Pharynx: Normal Neck: Normal - Respiratory Respiratory status: No respiratory distress Chest status: Nontender Breath sounds: Normal Chest palpation: Normal - Cardiovascular Rhythm: Regular Heart sounds: Normal auscultation Murmur: No - Abdominal Inspection: Fresh incision - multiple alli midline with no s/sx of infection ;tender left lower quadrant on p/p - Rectal Prostate: Other - deferred - Genitourinary Scrotum: Other - deferred - Back Back: Normal - Extremities General upper extremity: Normal inspection General lower extremity: Normal inspection - Neurological Neuro grossly intact: Yes Cognition: Normal Orientation: Disoriented to time, Disoriented to events Alejandro Coma Scale Eye Opening: Spontaneous Alejandro Coma Scale Verbal: Oriented Alejandro Coma Scale Motor: Obeys Commands Alejandro Coma Scale Total: 15 Speech: Normal Cranial nerves: Normal Cerebellar coordination: Normal Motor strength normal: LUE - Psychological Associated symptoms: Anxious - Skin Skin Temperature: Warm Skin Moisture: Dry Course - Vital Signs Vital signs: Temp Pulse Resp BP Pulse Ox 98.7 F 12 104/46 L 95 02/13/20 04:18 02/13/20 04:30 02/13/20 04:30 02/13/20 04:30 - Laboratory Result Diagrams: 02/13/20 00:19 02/13/20 00:19 Laboratory results interpreted by me: 02/13/20 02/13/20 02/13/20 00:19 00:19 00:19 WBC 19.6 H RBC 2.54 L Hgb 9.0 L Hct 26.4 L MCV 104 H MCH 35.6 H RDW 16.8 H Plt Count 499 H Lymph % (Auto) 9.2 L Absolute Neuts (auto) 16.1 H Seg Neutrophils % 82.6 H PT 18.7 H APTT 44.0 H Glucose 159 H Lactic Acid Calcium 7.5 L Total Bilirubin 2.1 H Direct Bilirubin 1.6 H AST 108 H Alkaline Phosphatase 282 H Albumin 2.6 L Urine Protein Urine Ascorbic Acid 02/13/20 02/13/20 00:19 01:19 WBC RBC Hgb Hct MCV MCH RDW Plt Count Lymph % (Auto) Absolute Neuts (auto) Seg Neutrophils % PT APTT Glucose Lactic Acid 4.6 H Calcium Total Bilirubin Direct Bilirubin AST Alkaline Phosphatase Albumin Urine Protein 30 H Urine Ascorbic Acid 40 H - Diagnostic Test Radiology reviewed: Reports reviewed - cxr nad per radiology; CT head negative per radiologist but the CT abdomen pelvis revealed left lower basilar opacity and ascites and enteritis and colitis but improved splenic hematoma and perisplenic fluid. - EKG Interpretation by Me EKG shows normal: Sinus rhythm Rate: Tachycardia Rhythm: NSR - Heart rate 106 with sinus tachycardia with no ST elevation and no ST depression and no T wave elevation and no T wave depression and axis within normal limits and this was read by myself. Critical Care Note - Critical Care Note Total time excluding time spent on procedures (mins): 90 Comments: I discussed this case with Aura at the transfer center at 0 415 and he called back at 0 435 to advise the trauma team who took care of this man are now on a extreme trauma mission. Aura advises the trauma team will call us back when they can. Aura did advised that the patient was discharged on 05 February with hypertension and splenic hematoma. Patient has been drinking since that time. John DE LEON here at the ER advises the patient's pressure dropped to 90 systolic and he was given more IV fluids. At this time at 0 441 he has a 104/46 blood pressure. Aura at [place] advises the surgeon who performed the abdominal surgery on this patient should be called. He was made aware of this by the trauma team there at [place]. I called Dr. Ellis at 0 524 and advised him of this request. I then called the manager grant KOTA Nath and he advised at 0 530 that he will come take a look at this fellow. I called Aura back at [place] about this at 0533. He advised to keep this case open until further notice. Discharge - Discharge Clinical Impression: Colitis Alcohol dependence Qualifiers: Substance use status: unspecified alcohol-induced disorder Qualified Code(s): F10.29 - Alcohol dependence with unspecified alcohol-induced disorder Acute alcohol intoxication Qualifiers: Complication of substance-induced condition: with unspecified complication Qualified Code(s): F10.929 - Alcohol use, unspecified with intoxication, unspecified Sepsis Qualifiers: Sepsis type: sepsis due to unspecified organism Sepsis acute organ dysfunction status: with acute organ dysfunction Severe sepsis acute organ dysfunction type: unspecified Severe sepsis shock status: with septic shock Qualified Code(s): A41.9 - Sepsis, unspecified organism Condition: Serious Disposition: ADMITTED INPATIENT Admitting Provider: Gucci (Deck Scaler) Unit Admitted: ICU
[2020-02-13 01:00] LABS: ALBUMIN 2.6 g/dL (3.5-5.0); ALCOHOL 248 mg/dL (NONE DETECTED); ALKALINE PHOSPHATASE 282 U/L (38-126); ANION GAP 12 (5-19); ASPARTATE AMINO TRANSFERASE 108 U/L (17-59); BILIRUBIN,DIRECT 1.6 mg/dL (0.0-0.4); BILIRUBIN,TOTAL 2.1 mg/dL (0.2-1.3); BLOOD UREA NITROGEN 11 mg/dL (7-20); CALCIUM 7.5 mg/dL (8.4-10.2); CARBON DIOXIDE 25 mmol/L (22-30); CHLORIDE 100 mmol/L (98-107); GLUCOSE 159 mg/dL (75-110); POTASSIUM 4.1 mmol/L (3.6-5.0); TOTAL PROTEIN 6.5 g/dL (6.3-8.2)
[2020-02-13] MEDS ORDERED: PIPERACILLIN/TAZOBACTAM 3.375 GM VIAL IV ONE (01:09)
[2020-02-13] MEDS ORDERED: VANCOMYCIN HCL INJ 1000 MG VIAL IV ONE (01:09)
[2020-02-13] MEDS ORDERED: NORMAL SALINE 1000 ML 1,000 ML IV ONE ×2 (01:10→04:40)
--- NOTE | 2020-02-13 01:41 | RADIOLOGY REPORT (SQ) ---
CLINICAL HISTORY: AMS COMPARISON: 01/30/2020 TECHNIQUE: XR CHEST 1 VIEW 02/13/2020 12:22 AM CDT FINDINGS: Cardiac silhouette is normal in size. Lungs are clear without consolidation, atelectasis, mass or edema. There is no pleural effusion. There is no pneumothorax. There are no acute osseous findings. IMPRESSION: Clear lungs.
[2020-02-13 01:44] LABS: URINE AMPHETAMINES SCREEN NEGATIVE; URINE COCAINE SCREEN NEGATIVE; URINE MARIJUANA (THC) SCREEN NEGATIVE; URINE METHADONE SCREEN NEGATIVE; URINE PHENCYCLIDINE SCREEN NEGATIVE
[2020-02-13 01:46] LABS: URINE BARBITURATES SCREEN UNCONFIRMED POSITIVE; URINE BENZODIAZEPINES SCREEN UNCONFIRMED POSITIVE
[2020-02-13 01:48] LABS: APPEARANCE,URINE CLEAR; BILIRUBIN,URINE NEGATIVE (NEGATIVE); COLOR,URINE AMBER; GLUCOSE, URINE NEGATIVE (NEGATIVE); KETONES,URINE NEGATIVE (NEGATIVE); LEUKOCYTE ESTERASE,URINE NEGATIVE (NEGATIVE); NITRITE,URINE NEGATIVE (NEGATIVE); PROTEIN,URINE 30 mg/dL (NEGATIVE); URINE SPECIFIC GRAVITY 1.019; UROBILINOGEN,URINE NEGATIVE mg/dL (<2.0)
[2020-02-13] MEDS ORDERED: KETOROLAC TROMETHAMINE INJ/PF 30 MG/1 ML SDV IV ONE ×2 (02:58→06:08)
--- NOTE | 2020-02-13 03:45 | RADIOLOGY REPORT (SQ) ---
CLINICAL HISTORY: hallucinations COMPARISON: 01/25/2020. TECHNIQUE: CT HEAD WITHOUT IV CONTRAST on 02/13/2020 12:56 AM CDT This exam was performed according to our departmental dose-optimization program, which includes automated exposure control, adjustment of the mA and/or kV according to patient size and/or use of iterative reconstruction technique. FINDINGS: There is no acute hemorrhage, mass effect or midline shift. Mejias-white differentiation is preserved. There is no hydrocephalus. There is no significant volume loss for age. The calvarium is intact. Orbits and globes are unremarkable. The paranasal sinuses are clear. Mastoid air cells are clear. IMPRESSION: No acute intracranial findings.
--- NOTE | 2020-02-13 03:45 | RADIOLOGY REPORT (SQ) ---
EXAM DESCRIPTION: CT ABDOMEN PELVIS WITHOUT IV CONTRAST COMPLETED DATE/TME: 02/13/2020 01:10 CLINICAL HISTORY: 29 years, Male, s/p abd surgery splenectomy/abscess COMPARISON: 01/30/2020 CT TECHNIQUE: [id number] Images stored on PACS. All CT scanners at this facility use dose modulation, iterative reconstruction, and/or weight based dosing when appropriate to reduce radiation dose to as low as reasonably achievable (ALARA). [facility]: Dose Right [facility]: CareDose [facility]: Dose Right [facility]: Teradose 4D [facility]: [employer] LIMITATIONS: None. FINDINGS: Limited evaluation of the lung bases shows a small left pleural effusion. Adjacent airspace opacities in the left lung base. Findings have improved from the prior exam however. Osseous structures are grossly intact. Severe hepatomegaly and fatty infiltrative change to the liver is redemonstrated. Biliary stents in place. Diffusely heterogeneous enhancement to the liver. There has been interval decrease in size of the perisplenic fluid collection/hematoma which minimally extends to the pancreatic tail. Approximate size is 4.5 x 6.7 x 3.4 cm on today's exam. On the prior the largest dimension was 8 cm craniocaudad There is residual inflammation. Pancreatic calcifications are again noted with diffuse wall thickening of the duodenum. Kidneys are grossly unremarkable. No free air, however there are a few foci of extraluminal air in the lateral left upper quadrant/left abdominal sidewall. Per history the patient is status post recent surgery and this may be postoperative in nature.. Moderate volume of ascites. No gross evidence for bowel obstruction. Multiple thick-walled loops of small bowel may reflect reactive enteritis. Subjective wall thickening of the a.c. ascending colon suggesting nonspecific colitis. Normal appendix. IMPRESSION: There appears to be overall improvement in the splenic hematoma compared with the prior exam. A few foci of extraluminal air associated with the lateral left abdominal wall in this region may be postoperative in nature. Persistent moderate ascites. Improvement in the left pleural effusion. Diffuse hepatomegaly and fatty infiltrative change. Biliary stent in place. Pancreatic calcifications. Probable reactive enteritis. Question nonspecific colitis. TECHNICAL DOCUMENTATION: Quality ID # [id number]: Final reports with documentation of one or more dose reduction techniques (e.g., Automated exposure control, adjustment of the mA and/or kV according to patient size, use of iterative reconstruction technique) copyright 2011 [employer]- All Rights Reserved
[2020-02-13] MEDS ORDERED: NORMAL SALINE 1000 ML 1,000 ML IV PRN (04:33)
[2020-02-13] MEDS ORDERED: GLUCAGON,HUMAN RECOMB 1 MG INJ SUBCUT PRN (06:04)
[2020-02-13] MEDS ORDERED: DEXTROSE 50%-WATER 25 GM/50 ML DISP.SYRIN IV PRN ×2 (06:04)
[2020-02-13] MEDS ORDERED: DEXTROSE 40% GEL 15 GM TUBE PO PRN ×2 (06:04)
[2020-02-13] MEDS ORDERED: MEROPENEM 500 MG VIAL IV SCH (06:15)
[2020-02-13] MEDS: RINGERS SOLUTION,LACTATED 1,000 ML IV PRN ×2 (06:25→16:40)
[2020-02-13] MEDS ORDERED: DEXTROSE 5%-WATER 250 ML with NOREPINEPHRINE BITARTRATE 4 MG IV PRN ×2 (06:39)
[2020-02-13] MEDS ORDERED: FENTANYL CITRATE INJ/PF 100 MCG/2 ML AMPUL IV PRN (06:39)
--- NOTE | 2020-02-13 06:39 | CRITICAL CARE ADMISSION REPORT ---
HPI Date:: 02/13/20 Time:: 06:20 Reason for ICU Reason:: sepsis Admission Date/Time & PCP: Admission Date/Time: 02/13/20 05:51 Primary Care Provider: Admit to Dr. Duckworth HPI: 29 year old white male with a past medical history of alcohol abuse. He presented to [place] approximately 3 weeks ago with complaints of abdominal pain and had a CT performed in the ER which showed splenic hematoma with hemorrhage. The patient was admitted and seen by surgery Dr. Medina who took the patient to the OR and findings revealed Markedly enlarged left lobe of the liver in comparison to the left lateral gutter and covering the spleen. The stomach is pulled towards the left lateral gutter with gastrocolic ligament with multiple dilated veins. This was also plastered towards the left lateral gutter. The white line of Toldt has some neovascularization that just touching it caused bleeding. Unable to identify the spleen. Postoperatively Dr. Medina contacted Dr. Thomas at [facility] and arranged for the patient to be transferred as soon as possible to their surgical teams care. Patient will be in the ICU here at [facility] until the time of transfer.and was then transferred to [facility]. The patient presents to the ER tonight with complaints of drainage from his SAL drain site and fever with abdominal pain. The patient was also hypotensive and was given sepsis fluid in the ER with some response. Cr itical care was consulted for admission and management of this patient due to his sepsis and hypotension. - Diagnosis/Plan (1) Sepsis Qualifiers: Sepsis type: sepsis due to unspecified organism Sepsis acute organ dysfunction status: with acute organ dysfunction Severe sepsis acute organ dysfunction type: unspecified Severe sepsis shock status: with septic shock Qualified Code(s): A41.9 - Sepsis, unspecified organism; R65.21 - Severe sepsis with septic shock Is this a current diagnosis for this admission?: Yes Plan: administer IVF and antibiotics meropenem and vancomycin cultures pending (2) Hypotension, unspecified Qualifiers: Hypotension type: unspecified hypotension type Qualified Code(s): I95.9 - Hypotension, unspecified Is this a current diagnosis for this admission?: Yes Plan: fluid resuscitation (3) Alcohol dependence Qualifiers: Substance use status: unspecified alcohol-induced disorder Qualified Code(s): F10.29 - Alcohol dependence with unspecified alcohol-induced disorder Is this a current diagnosis for this admission?: No Plan: monitor for signs of withdrawal (4) Alcoholic cirrhosis of liver without ascites Is this a current diagnosis for this admission?: Yes 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 Musculoskeltal Medical History: Reports: None Skin Medical History: Reports: None Psychiatric Medical History: Reports: Alcohol Dependency Denies: Depression Traumatic Medical History: Reports: None Hematology: Reports: Anemia Infectious Medical History: Reports: None Past Surgical History Past Surgical History: Reports: Cholecystectomy, Other - abdominal surgery for hematoma on the spleen done at [facility] Social/Family History - Social History Lives with: Family Smoking Status: Current Every Day Smoker Frequency of Alcohol Use: Heavy Hx Recreational Drug Use: Yes Drugs: Marijuana Hx Prescription Drug Abuse: No - Medication/Allergies Home Medications: No Home Medications 01/04/20 Allergies/Adverse Reactions: No Known Allergies Allergy (Verified 02/13/20 00:32) Review of Systems Constitutional: PRESENT: chills, fatigue, fever(s) Gastrointestinal: PRESENT: abdominal pain, bloating Physical Exam Vital Signs: Temp Pulse Resp BP Pulse Ox 98.7 F 17 84/38 L 97 02/13/20 04:18 02/13/20 05:48 02/13/20 05:48 02/13/20 05:48 Intake & Output 02/11/20 02/12/20 02/13/20 06:59 06:59 06:59 Intake Total 3250 Balance 3250 Weight 68.039 kg Weight/Height Weight 68.039 kg Height 6 ft 2 in General appearance: PRESENT: mild distress, well-developed, well-nourished Head exam: PRESENT: atraumatic, normocephalic Eye exam: PRESENT: EOMI, PERRLA Ear exam: PRESENT: normal external ear exam Mouth exam: PRESENT: dry mucosa, neck supple, tongue midline Neck exam: PRESENT: full ROM. ABSENT: tracheal deviation Respiratory exam: PRESENT: clear to auscultation emmanuel, decreased breath sounds, symmetrical, unlabored Cardiovascular exam: PRESENT: +S1, +S2, tachycardia Pulses: PRESENT: normal carotid pulses, normal radial pulses, normal femoral pulses Vascular exam: PRESENT: normal capillary refill GI/Abdominal exam: PRESENT: diminished bowel sounds, firm, guarding, hypoactive bowel sounds, rigid, tenderness Rectal exam: PRESENT: deferred Neurological exam: PRESENT: alert, oriented to person, oriented to place, oriented to time, CN II-XII grossly intact Skin exam: PRESENT: other - midline abdominal incision alli in place dressing over old sal site with large amount drainage Laboratory/Radiographs Laboratory Results: 02/13/20 00:19 02/13/20 00:19 02/13/20 02/13/20 02/13/20 00:19 00:19 00:19 WBC 19.6 H RBC 2.54 L Hgb 9.0 L Hct 26.4 L MCV 104 H MCH 35.6 H MCHC 34.2 RDW 16.8 H Plt Count 499 H Seg Neutrophils % 82.6 H Sodium 137.2 Potassium 4.1 Chloride 100 Carbon Dioxide 25 Anion Gap 12 BUN 11 Creatinine 0.92 Est GFR ( Amer) > 60 Glucose 159 H Lactic Acid Calcium 7.5 L Total Bilirubin 2.1 H AST 108 H Alkaline Phosphatase 282 H Ammonia 32.8 Total Protein 6.5 Albumin 2.6 L Lipase 81.4 Urine Color Urine Appearance Urine pH Ur Specific [place] Urine Protein Urine Glucose (UA) Urine Ketones Urine Blood Urine Nitrite Ur Leukocyte Esterase Urine WBC (Auto) Urine RBC (Auto) 02/13/20 02/13/20 02/13/20 00:19 01:19 04:51 WBC RBC Hgb Hct MCV MCH MCHC RDW Plt Count Seg Neutrophils % Sodium Potassium Chloride Carbon Dioxide Anion Gap BUN Creatinine Est GFR ( Amer) Glucose Lactic Acid 4.6 H 3.3 H Calcium Total Bilirubin AST Alkaline Phosphatase Ammonia Total Protein Albumin Lipase Urine Color DEREK Urine Appearance CLEAR Urine pH 5.0 Ur Specific [place] 1.019 Urine Protein 30 H Urine Glucose (UA) NEGATIVE Urine Ketones NEGATIVE Urine Blood NEGATIVE Urine Nitrite NEGATIVE Ur Leukocyte Esterase NEGATIVE Urine WBC (Auto) 6 Urine RBC (Auto) 1 Impressions: Chest X-Ray 02/13/20 00:22 IMPRESSION: Clear lungs. Head CT 02/13/20 00:56 IMPRESSION: No acute intracranial findings. Abdomen/Pelvis CT 02/13/20 01:10 IMPRESSION: There appears to be overall improvement in the splenic hematoma compared with the prior exam. A few foci of extraluminal air associated with the lateral left abdominal wall in this region may be postoperative in nature. Persistent moderate ascites. Improvement in the left pleural effusion. Diffuse hepatomegaly and fatty infiltrative change. Biliary stent in place. Pancreatic calcifications. Probable reactive enteritis. Question nonspecific colitis. TECHNICAL DOCUMENTATION: Quality ID # [id number]: Final reports with documentation of one or more dose reduction techniques (e.g., Automated exposure control, adjustment of the mA and/or kV according to patient size, use of iterative reconstruction technique) copyright 2011 [employer]- All Rights Reserved All labs, radiographs, diagnostic studies and EKGs were personally reviewed: Yes In addition, reports of radiographic and diagnostic studies were read: Yes Critical Time Critical Time (minutes): 55 -: The care of a critically ill patient is dynamic. This note represents a static moment in the admission process. Orders and treatments may be given simultane ously and urgently, and time is not franchise sales representative of the treatment process. This patient requires Critical Care secondary to life threatening organ or limb dysfunction. Without Critical Care services, the patient is at risk for increased mortality and morbidity.
[2020-02-13] MEDS ORDERED: NOREPINEPHRINE BITARTRATE INJ/PF 4 MG/4 ML SDV IV ONE (06:53)
[2020-02-13] MEDS ORDERED: MEROPENEM 500 MG in NORMAL SALINE 50 ML IV SCH (07:00)
[2020-02-13] MEDS ORDERED: PANTOPRAZOLE SODIUM 40 MG VIAL IV SCH (07:00)
--- NOTE | 2020-02-13 07:21 | EKG REPORT ---
SEVERITY:- OTHERWISE NORMAL ECG - SINUS TACHYCARDIA : Confirmed by: Fang Benson 13-Feb-2020 07:19:57
[2020-02-13 08:06] LABS: INTERNATIONAL RATION (INR) 1.66; PROTHROMBIN TIME 19.7 SEC (11.4-15.4)
[2020-02-13] MEDS ORDERED: VANCOMYCIN HCL 0 MG in DEXTROSE 5%-WATER 250 ML IV NR (08:15)
--- NOTE | 2020-02-13 08:46 | Progress Note ---
Provider Note Provider Note: Patient seen shortly after Ward Nath NP. Pt has clinical signs of peritonitis. No abcess or infected organ by CT. He does have a chronically draining SAEID site from his surgery here 12/31. He has pain, fever at night and decreased PO intake because of this. Admits to large alcohol consumption. Will provide generous ativan and see if we can provider PO alcohol while here. Will ask for Dr. Chin opinion regarding management which I believe will involve antibiotics IV..
[2020-02-13] MEDS: LACTULOSE SYRUP 20 GM/30 ML UDCUP PO SCH (09:45)
[2020-02-13] MEDS: HYDROMORPHONE HCL INJ/PF 2 MG/ML AMPULE IV PRN ×4 (09:46→21:47)
[2020-02-13] MEDS: PANTOPRAZOLE SODIUM 40 MG VIAL IV SCH (09:46)
[2020-02-13] MEDS: VANCOMYCIN HCL 1,000 MG in DEXTROSE 5%-WATER 250 ML IV SCH ×2 (09:46→17:51)
[2020-02-13] MEDS: LORAZEPAM INJ 2 MG/1 ML VIAL IV PRN ×3 (09:47→18:12)
[2020-02-13] MEDS: MEROPENEM 500 MG in NORMAL SALINE 50 ML IV SCH ×3 (09:53→21:46)
[2020-02-13] MEDS ORDERED: [UNRECOGNIZED DRUG - OTHER] PO SCH (12:00)
[2020-02-13] MEDS: [UNRECOGNIZED DRUG - OTHER] PO SCH ×2 (13:08→17:50)
--- NOTE | 2020-02-13 14:21 | PDOC CONSULTATION ---
Consultation Consult Date: 02/13/20 Attending physician:: REY TAMAYO Provider Consulted: HERON ALVAREZ Consult reason:: abdominal pain History of Present Illness Admission Date/PCP: 02/13/20 05:51 History of Present Illness: NICK ESTRELLA is a 29 year old male NICK ESTRELLA is a 29 year old male past medical history of EtOH abuse with frequent binge drinking, alcohol withdrawal seizure, alcoholic pancreatitis presenting to ED complaining of nausea vomiting and severe muscle cramps for the last 2 days. Patient has been drinking heavily recently, saying that he has been drinking constantly for the last several days, patient also has history of alcohol pancreatitis and has had alcohol withdrawals in the past and been hospitalized. Saw patient this morning after he has already received IV fluids and benzodiazepines sitting in the bed appearing very anxious and is stating that his lower extremities are cramping up but has nausea and vomiting has resolved since he came to ED. Patient lives with his at home they have a get together, patient has not been exposed to anybody with COVID-19, denies any shortness of breath, fever, chills, chest pain or any urinary symptoms. In ED was noted to be tachypneic, tachycardic, hypokalemic and hypomagnesemic. Hospitalist was consulted for admission. Also CT scan on 29 January revealed splenic hematoma with active hemorrhage and pleural effusions with ascites and biliary stent and no SBO or perforation He was taken to the operating here where Dr. Toussaint attempted an exploratory laparotomy for splenectomy however he was unable to do that secondary to increased bleeding from the abdominal wound once he entered the abdomen therefore it was closed up and the patient was sent [facility] as a higher level of care. He was managed there for a few days nonoperative treatment was given and he was discharged. He returned home for 5 days ago has been drinking heavily ever since. 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 Musculoskeltal Medical History: Reports: None Skin Medical History: Reports: None Psychiatric Medical History: Reports: Alcohol Dependency Denies: Depression Traumatic Medical History: Reports: None Hematology: Reports: Anemia Infectious Medical History: Reports: None Past Surgical History Past Surgical History: Reports: Cholecystectomy, Other - abdominal surgery for hematoma on the spleen done at [facility] Social History Lives with: Family Smoking Status: Current Every Day Smoker Cigarettes Packs Per Day: 1 Electronic Cigarette use?: No Number of Years Smokin Last Time Smoked: 02/13/20 Frequency of Alcohol Use: Occasional Hx Recreational Drug Use: No Drugs: None Hx Prescription Drug Abuse: No Family History Family History: Reviewed & Not Pertinent Parental Family History Reviewed: No Children Family History Reviewed: NA Sibling(s) Family History Reviewed.: NA Medication/Allergy Home Medications: Furosemide [Lasix 40 mg Tablet] 40 mg PO QAM 02/13/20 Lactulose 15 ml PO DAILY 02/13/20 Propranolol HCl [Inderal 10 mg Tablet] 10 mg PO Q8 02/13/20 Spironolactone [Aldactone 100 mg Tablet] 1 tab PO DAILY 02/13/20 Allergies/Adverse Reactions: No Known Allergies Allergy (Verified 02/13/20 00:32) Review of Systems Constitutional: PRESENT: anorexia, fatigue Ears: ABSENT: hearing changes Nose, Mouth, and Throat: ABSENT: as per HPI, headache(s), mouth pain, sore throat, vertigo, other Breasts: ABSENT: as per HPI, other Cardiovascular: ABSENT: as per HPI, chest pain, dyspnea on exertion, edema, orthropnea, palpitations, other Respiratory: ABSENT: as per HPI, cough, dyspnea, hemoptysis, sputum, other Genitourinary: ABSENT: as per HPI, difficulty urinating, dysuria, hematuria, nocturia, other Musculoskeletal: PRESENT: muscle weakness Integumentary: ABSENT: as per HPI, diaphoresis, erythema, lesions, pruritus, rash, wounds, other Neurological: ABSENT: as per HPI, abnormal gait, abnormal movements, abnormal speech, confusion, convulsions, dizziness, focal weakness, frequent falls, lack of coordination, memory loss, numbness, paresthesias, restless legs, syncope, tingling, tremor(s), vertigo, weakness, other Psychiatric: PRESENT: as per HPI Endocrine: ABSENT: as per HPI, cold intolerance, flushing, heat intolerance, menstrual abnormalities, polydipsia, polyphagia, polyuria, other Hematologic/Lymphatic: PRESENT: easy bleeding, easy bruising Allergic/Immunologic: ABSENT: as per HPI, seasonal rhinorrhea, other Physical Exam Vital Signs: Temp Pulse Resp BP Pulse Ox 98.2 F 100 17 99/67 L 97 02/13/20 12:00 02/13/20 12:00 02/13/20 13:30 02/13/20 13:30 02/13/20 13:30 Intake & Output 02/12/20 02/13/20 02/14/20 06:59 06:59 06:59 Intake Total 3250 58 Output Total 200 Balance 3250 -142 Weight 68.039 kg 71.8 kg General appearance: PRESENT: other - Cachectic disheveled male in no apparent distress lying in the ICU bed. Head exam: PRESENT: atraumatic Eye exam: PRESENT: EOMI Ear exam: PRESENT: normal external ear exam Mouth exam: PRESENT: moist Neck exam: PRESENT: full ROM Respiratory exam: PRESENT: clear to auscultation emmanuel Cardiovascular exam: PRESENT: tachycardia Pulses: PRESENT: normal radial pulses, normal femoral pulses Vascular exam: PRESENT: normal capillary refill Breast: PRESENT: Normal GI/Abdominal exam: PRESENT: other - Is firm secondary to underlying hepatomegaly and splenomegaly. He is got a very thin abdominal wall he has a midline scar that is healing well with alli still intact he is got a wound drainage bag in the left abdominal wall where the previous Timothy-Pereira drain has been removed and now is draining intermittent ascites. There is ascites palpable in his abdominal wall but he does not have rebound his entire abdomen is firm and tender to palpation but no obvious peritoneal signs Extremities exam: PRESENT: full ROM Musculoskeletal exam: PRESENT: full ROM Neurological exam: PRESENT: alert, awake, oriented to person, oriented to place Psychiatric exam: PRESENT: appropriate affect Skin exam: PRESENT: dry Results Laboratory Results: 02/13/20 00:19 02/13/20 00:19 02/13/20 02/13/20 02/13/20 00:19 00:19 00:19 WBC 19.6 H RBC 2.54 L Hgb 9.0 L Hct 26.4 L MCV 104 H MCH 35.6 H MCHC 34.2 RDW 16.8 H Plt Count 499 H Seg Neutrophils % 82.6 H Sodium 137.2 Potassium 4.1 Chloride 100 Carbon Dioxide 25 Anion Gap 12 BUN 11 Creatinine 0.92 Est GFR ( Amer) > 60 Glucose 159 H Lactic Acid Calcium 7.5 L Magnesium Total Bilirubin 2.1 H AST 108 H Alkaline Phosphatase 282 H Ammonia 32.8 Total Protein 6.5 Albumin 2.6 L Lipase 81.4 Urine Color Urine Appearance Urine pH Ur Specific [place] Urine Protein Urine Glucose (UA) Urine Ketones Urine Blood Urine Nitrite Ur Leukocyte Esterase Urine WBC (Auto) Urine RBC (Auto) 02/13/20 02/13/20 02/13/20 00:19 01:19 04:51 WBC RBC Hgb Hct MCV MCH MCHC RDW Plt Count Seg Neutrophils % Sodium Potassium Chloride Carbon Dioxide Anion Gap BUN Creatinine Est GFR ( Amer) Glucose Lactic Acid 4.6 H 3.3 H Calcium Magnesium Total Bilirubin AST Alkaline Phosphatase Ammonia Total Protein Albumin Lipase Urine Color DEREK Urine Appearance CLEAR Urine pH 5.0 Ur Specific [place] 1.019 Urine Protein 30 H Urine Glucose (UA) NEGATIVE Urine Ketones NEGATIVE Urine Blood NEGATIVE Urine Nitrite NEGATIVE Ur Leukocyte Esterase NEGATIVE Urine WBC (Auto) 6 Urine RBC (Auto) 1 02/13/20 07:40 WBC RBC Hgb Hct MCV MCH MCHC RDW Plt Count Seg Neutrophils % Sodium Potassium Chloride Carbon Dioxide Anion Gap BUN Creatinine Est GFR ( Amer) Glucose Lactic Acid Calcium Magnesium 1.9 Total Bilirubin AST Alkaline Phosphatase Ammonia Total Protein Albumin Lipase Urine Color Urine Appearance Urine pH Ur Specific [place] Urine Protein Urine Glucose (UA) Urine Ketones Urine Blood Urine Nitrite Ur Leukocyte Esterase Urine WBC (Auto) Urine RBC (Auto) 02/13/20 02/13/20 07:40 12:30 Creatine Kinase 28 L 29 L Impressions: Chest X-Ray 02/13/20 00:22 IMPRESSION: Clear lungs. Head CT 02/13/20 00:56 IMPRESSION: No acute intracranial findings. Abdomen/Pelvis CT 02/13/20 01:10 IMPRESSION: There appears to be overall improvement in the splenic hematoma compared with the prior exam. A few foci of extraluminal air associated with the lateral left abdominal wall in this region may be postoperative in nature. Persistent moderate ascites. Improvement in the left pleural effusion. Diffuse hepatomegaly and fatty infiltrative change. Biliary stent in place. Pancreatic calcifications. Probable reactive enteritis. Question nonspecific colitis. TECHNICAL DOCUMENTATION: Quality ID # 436: Final reports with documentation of one or more dose reduction techniques (e.g., Automated exposure control, adjustment of the mA and/or kV according to patient size, use of iterative reconstruction technique) copyright 2011 [employer]- All Rights Reserved Assessment & Plan - Plan Summary Plan Summary: Patient is an unfortunate 29-year-old male who has severe alcoholism and has sequelae related to that. He is got hepatomegaly and splenomegaly recently in the hospital for splenic hematoma secondary splenic flat fracture underwent exploratory laparotomy but did not remove the spleen at that time. He has ascites which is been known. And a generally chronically firm abdomen abdomen with chronic abdominal pain. The patient continues to drink heavily at home and is been admitted multiple times for alcoholic withdrawal and alcoholic pancreatitis. Dr. Walton asked me to see the patient today because he was worried about ac wei peritonitis and however on physical examination the patient does not really not really exhibit peritonitis. After evaluating the patient has been with Dr. Carreno felt that surgical intervention at this point into a search for a chronic abdominal pain or chronic fevers at home through a abdominal incision would not be in the best interest of the patient. CT scan does not reveal any source of the abscess or fluid collection other than the ascites the previous splenic fracture that had a dye blush within the spleen has improved since his transfer divide and a couple of weeks ago. I do not see any obvious need for surgical intervention at this time.
[2020-02-13 19:03] LABS: ANION GAP 12 (5-19); BLOOD UREA NITROGEN 12 mg/dL (7-20); CALCIUM 7.3 mg/dL (8.4-10.2); CARBON DIOXIDE 20 mmol/L (22-30); CHLORIDE 101 mmol/L (98-107); GLUCOSE 163 mg/dL (75-110)
[2020-02-13] MEDS ORDERED: RINGERS SOLUTION,LACTATED 1,000 ML IV PRN (19:16)
--- NOTE | 2020-02-13 20:30 | Progress Note ---
Provider Note Provider Note: Dr. herring called and hand off given and aware of room number 406.
[2020-02-13] MEDS ORDERED: IBUPROFEN 600 MG TABLET PO PRN (23:10)
[2020-02-14] MEDS: HYDROMORPHONE HCL INJ/PF 2 MG/ML AMPULE IV PRN ×5 (00:57→17:39)
[2020-02-14] MEDS: VANCOMYCIN HCL 1,000 MG in DEXTROSE 5%-WATER 250 ML IV SCH ×2 (01:01→10:31)
[2020-02-14] MEDS: LORAZEPAM INJ 2 MG/1 ML VIAL IV PRN ×4 (01:38→19:25)
[2020-02-14] MEDS: MEROPENEM 500 MG in NORMAL SALINE 50 ML IV SCH ×4 (02:44→21:01)
[2020-02-14] MEDS: RINGERS SOLUTION,LACTATED 1,000 ML IV PRN ×2 (04:45→14:32)
[2020-02-14 05:10] LABS: ABSOLUTE BASOPHILS # (AUTO) 0.1 10^3/uL (0.0-0.2); ABSOLUTE EOSINOPHILS # (AUTO) 0.1 10^3/uL (0.0-0.6); ABSOLUTE MONOCYTES (AUTO) 1.3 10^3/uL (0.1-1.4); ABSOLUTE NEUT (AUTO) 12.7 10^3/uL (1.7-8.2); BASOPHILS % (AUTO) 0.8 % (0-2); EOSINOPHILS % (AUTO) 0.9 % (0-6); HEMATOCRIT 23.3 % (37.9-51.0); LYMPHOCYTES % (AUTO) 12.3 % (13-45); MEAN CORPUSCULAR HEMOGLOBIN 35.5 pg (27.0-33.4); MEAN CORPUSCULAR HGB CONC 34.5 g/dL (32.0-36.0); MEAN CORPUSCULAR VOLUME 103 fl (80-97); MONOCYTES % (AUTO) 7.9 % (3-13); PLATELET COUNT 347 10^3/uL (150-450); RED BLOOD COUNT 2.26 10^6/uL (4.35-5.55); RED CELL DISTRIBUTION WIDTH 16.7 % (11.5-14.0); SEGMENTED NEUTROPHILS % (AUTO) 78.1 % (42-78); TOTAL CELLS COUNTED % (AUTO) 100 %; WHITE BLOOD COUNT 16.3 10^3/uL (4.0-10.5)
[2020-02-14 05:30] LABS: ALBUMIN 2.2 g/dL (3.5-5.0); ALKALINE PHOSPHATASE 282 U/L (38-126); ANION GAP 8 (5-19); ASPARTATE AMINO TRANSFERASE 135 U/L (17-59); BILIRUBIN,DIRECT 1.8 mg/dL (0.0-0.4); BILIRUBIN,TOTAL 2.9 mg/dL (0.2-1.3); BLOOD UREA NITROGEN 13 mg/dL (7-20); CALCIUM 7.1 mg/dL (8.4-10.2); CARBON DIOXIDE 21 mmol/L (22-30); CHLORIDE 100 mmol/L (98-107); GLUCOSE 136 mg/dL (75-110); POTASSIUM 4.6 mmol/L (3.6-5.0); TOTAL PROTEIN 5.8 g/dL (6.3-8.2)
[2020-02-14] MEDS ORDERED: VANCOMYCIN HCL INJ 1000 MG VIAL IV ONE (06:16)
[2020-02-14 09:13] LABS: VANCOMYCIN,TROUGH 24.3 ug/mL (5.0-20.0)
[2020-02-14] MEDS: LACTULOSE SYRUP 20 GM/30 ML UDCUP PO SCH (10:00)
[2020-02-14] MEDS: PANTOPRAZOLE SODIUM 40 MG VIAL IV SCH (10:00)
[2020-02-14] MEDS: [UNRECOGNIZED DRUG - OTHER] PO SCH (10:00)
--- NOTE | 2020-02-14 18:46 | RADIOLOGY REPORT (SQ) ---
EXAM DESCRIPTION: CHEST SINGLE VIEW IMAGES COMPLETED DATE/TIME: 02/14/2020 5:15 pm REASON FOR STUDY: SOB COMPARISON: 02/13/2020 EXAM PARAMETERS: NUMBER OF VIEWS: One view. TECHNIQUE: Single frontal radiographic view of the chest acquired. RADIATION DOSE: NA LIMITATIONS: None. FINDINGS: LUNGS AND PLEURA: No opacities, masses or pneumothorax. No pleural effusion. MEDIASTINUM AND HILAR STRUCTURES: No masses. Contour normal. HEART AND VASCULAR STRUCTURES: Heart normal in size. Normal vasculature. BONES: No acute findings. HARDWARE: None in the chest. OTHER: No other significant finding. IMPRESSION: NO ACUTE RADIOGRAPHIC FINDING IN THE CHEST. TECHNICAL DOCUMENTATION: JOB ID: [id number] 2010 [employer]- All Rights Reserved Reading location - IP/workstation name: [email or web address]
[2020-02-14] MEDS ORDERED: NORMAL SALINE 500 ML IV ONE (19:30)
[2020-02-14] MEDS ORDERED: THIAMINE HCL 100 MG in NORMAL SALINE 50 ML IV ONE (20:08)
--- NOTE | 2020-02-14 20:22 | PDOC PROGRESS REPORT ---
Subjective Progress Note for:: 02/14/20 Subjective:: Kun Flynn, 29/M, known alcoholic with history of alcohol seizures, alcohol withdrawal, acute pancreatitis. He came to the ED February 12 due to abdominal pain and increased drainage from his SAEID drain. The patient is drowsy and has provided very limited history but according to him he started drinking heavily again about 4 days prior to current admission. He was admitted at [facility] about 3 weeks ago due to alcohol abuse and withdrawal. During this time he was treated for alcoholic hepatitis, he also developed splenic hemorrhage. He was taken to the OR by Dr. Medina and intraoperatively it was determined that he cannot be treated surgically here hence he was transferred to [facility]. At [facility]. it was noted that his splenic hemorrhage has spontaneously embolized and instead a SAEID drain was placed splenectomy was not done. In the ED he was noted to be hypotensive and septic hence he was initially admitted in ICU he was started on meropenem and vancomycin. CT abdomen showed diffuse hepatomegaly and fatty infiltrative change. Biliary stent in place. Pancreatic calcifications. Probable reactive enteritis. Surgery was consulted to assess his abdomen. Per Dr. Landrum's notes surgical exploration as to the cause of his chronic abdominal pain would not be in the best interest of the patient. He was eventually transferred to the floors on February 14, 2020. 02/14/20. He was seen and examined at bedside. He was noted to be very drowsy. He was transferred out of the ICU with orders for bourbon whiskey by Dr. Duckworth which he has just gotten when I came in the room. Lactic acid was 6.0 at February 12 at around 8 PM. Repeat lactate in the morning was 2.4. Repeat lactate at 4 PM 3.6. He was given a bolus of 300 mL normal saline on top of his D5 LR which is running at 175 mL/h. We will trend his lactate. He is currently on meropenem and vancomycin for sepsis. Unsure as to the cause of his sepsis since his chest x-ray is clean, urine shows no UTI. Blood culture drawn during admission no growth. Fluid from SAEID drain cultured with no growth on day 1. I tried to reach his his in an attempt to get more history however was unable unable to reach her I left 2 voicemails for her to call me back. Reason For Visit: SEPSIS WITH SHOCK Physical Exam Vital Signs: Temp Pulse Resp BP Pulse Ox 100 F 121 H 12 90/30 L 95 02/14/20 10:00 02/14/20 08:05 02/14/20 08:05 02/14/20 08:05 02/14/20 08:05 Intake & Output 02/13/20 02/14/20 02/15/20 06:59 06:59 06:59 Intake Total 3250 5152 1590 Output Total 1000 Balance 3250 4152 1590 Weight 68.039 kg 77.2 kg General appearance: PRESENT: mild distress, other - Drowsy Head exam: PRESENT: atraumatic, normocephalic Eye exam: PRESENT: EOMI, PERRLA Mouth exam: PRESENT: moist Neck exam: PRESENT: full ROM Respiratory exam: PRESENT: clear to auscultation emmanuel, symmetrical, tachypnea Cardiovascular exam: PRESENT: RRR, +S1, +S2 Pulses: PRESENT: normal radial pulses GI/Abdominal exam: PRESENT: distended, hypoactive bowel sounds, soft, tenderness. ABSENT: guarding, rebound Extremities exam: PRESENT: full ROM, pedal edema, +2 edema Musculoskeletal exam: PRESENT: full ROM Neurological exam: PRESENT: altered, other - Lethargic Psychiatric exam: PRESENT: depressed Results Laboratory Results: 02/14/20 04:27 02/14/20 08:35 02/13/20 02/14/20 02/14/20 20:19 04:27 04:27 WBC 16.3 H RBC 2.26 L Hgb 8.0 L Hct 23.3 L MCV 103 H MCH 35.5 H MCHC 34.5 RDW 16.7 H Plt Count 347 Seg Neutrophils % 78.1 H Sodium 128.8 L Potassium 4.6 Chloride 100 Carbon Dioxide 21 L Anion Gap 8 BUN 13 Creatinine 1.00 Est GFR ( Amer) > 60 Glucose 136 H Lactic Acid 6.0 H Calcium 7.1 L Total Bilirubin 2.9 H AST 135 H Alkaline Phosphatase 282 H Total Protein 5.8 L Albumin 2.2 L 02/14/20 02/14/20 02/14/20 08:35 08:35 16:05 WBC RBC Hgb Hct MCV MCH MCHC RDW Plt Count Seg Neutrophils % Sodium Potassium Chloride Carbon Dioxide Anion Gap BUN Creatinine 1.22 Est GFR ( Amer) > 60 Glucose Lactic Acid 2.4 H 3.6 H Calcium Total Bilirubin AST Alkaline Phosphatase Total Protein Albumin 02/13/20 09:55 Abdomen - Post Surgical Site Gram Stain - Final 02/13/20 02/13/20 02/13/20 07:40 12:30 18:15 Creatine Kinase 28 L 29 L 27 L Impressions: Head CT 02/13/20 00:56 IMPRESSION: No acute intracranial findings. Abdomen/Pelvis CT 02/13/20 01:10 IMPRESSION: There appears to be overall improvement in the splenic hematoma compared with the prior exam. A few foci of extraluminal air associated with the lateral left abdominal wall in this region may be postoperative in nature. Persistent moderate ascites. Improvement in the left pleural effusion. Diffuse hepatomegaly and fatty infiltrative change. Biliary stent in place. Pancreatic calcifications. Probable reactive enteritis. Question nonspecific colitis. TECHNICAL DOCUMENTATION: Quality ID # [id number]: Final reports with documentation of one or more dose reduction techniques (e.g., Automated exposure control, adjustment of the mA and/or kV according to patient size, use of iterative reconstruction technique) copyright 2011 [employer]- All Rights Reserved Chest X-Ray 02/14/20 00:00 IMPRESSION: NO ACUTE RADIOGRAPHIC FINDING IN THE CHEST. Assessment and Plan - Diagnosis (1) Sepsis Qualifiers: Sepsis type: sepsis due to unspecified organism Sepsis acute organ dysfunction status: with acute organ dysfunction Severe sepsis acute organ dysfunction type: unspecified Severe sepsis shock status: with septic shock Qualified Code(s): A41.9 - Sepsis, unspecified organism; R65.21 - Severe sepsis with septic shock Is this a current diagnosis for this admission?: Yes Plan: -Came in with altered mental status tachypneic and tachycardic -Received IV boluses was briefly on Levophed drip -Lactic acid still elevated at 3.4 -Blood culture negative x1, x-ray clear, UA no signs of UTI -Source is likely his abdomen given recent surgery however CT scan of the abdomen is not showing -Currently on meropenem and vancomycin -Continue D5 LR at 175 mL/h (2) Acute metabolic encephalopathy Is this a current diagnosis for this admission?: Yes Plan: -Patient noted to be very drowsy -Likely from sepsis, hyponatremia and Ativan -Ammonia is normal -We will hold off on CT head -Awaiting serum and and urine osmolality for work-up of hyponatremia (3) Alcohol withdrawal Qualifiers: Complication of substance-induced condition: with unspecified complication Qualified Code(s): F10.239 - Alcohol dependence with withdrawal, unspecified Is this a current diagnosis for this admission?: Yes Plan: -Has been drinking heavily for the past 4 days -CIWA scoring -Thiamine and folic acid via IV provided -PRN Ativan for withdrawal (4) Alcohol dependence Qualifiers: Substance use status: unspecified alcohol-induced disorder Qualified Code(s): F10.29 - Alcohol dependence with unspecified alcohol-induced disorder Is this a current diagnosis for this admission?: No Plan: -Is been counseled repeatedly in the past to abstain but clearly has not complied -Would need referral for outpatient rehab (5) Splenic hemorrhage Is this a current diagnosis for this admission?: Yes Plan: -Noted on prior admission 3 weeks ago -He was taken to the operating room by Dr. Medina could not perform a splenectomy that time. He was transferred to [facility] where surgery took another look at his belly and found that his splenic hemorrhage has auto embolized. SAEID drain was instead placed. And he was sent home -Abdominal exam showed abdominal distention hypoactive bowel sounds -CT of the abdomen and pelvis during admission showed severe hepatomegaly and fatty changes to the liver. Biliary stent in place. Diffusely heterogenous enhancement to the liver. Interval decrease in size of the perisplenic fluid collection/hematoma. Persistent moderate ascites -Globin stable at 8.0 no indication for transfusion -We will continue to monitor (6) Hypotension, unspecified Qualifiers: Hypotension type: unspecified hypotension type Qualified Code(s): I95.9 - Hypotension, unspecified Is this a current diagnosis for this admission?: Yes Plan: -Improving. -This can be a combination of ongoing sepsis with his liver cirrhosis -Antibiotics ongoing, with fluid resuscitation - (7) Ascites Qualifiers: Ascites type: due to alcoholic hepatitis Qualified Code(s): K70.11 - Alcoholic hepatitis with ascites Is this a current diagnosis for this admission?: Yes Plan: -Moderate ascites per CT report -SAEID drain with significant drainage -Culture of SAEID drainage negative -We will reassess him tomorrow if he will need paracenteses (8) Transaminitis Is this a current diagnosis for this admission?: Yes Plan: -T1 35, ALT 32, ALP 282 -Secondary to alcohol dependence (9) Hyperbilirubinemia Is this a current diagnosis for this admission?: Yes Plan: -Bilirubin 2.9 -Consistent with his hepatic disease Continue to monitor - Time Time Spent with patient: 35 or more minutes Anticipated Discharge Disposition: Home, Self Care Anticipated Discharge Timeframe: to be determined
[2020-02-14] MEDS ORDERED: THIAMINE HCL 100 MG, FOLIC ACID 1 MG in NORMAL SALINE 250 ML IV ONE (21:00)
[2020-02-14] MEDS ORDERED: THIAMINE HCL INJ 200 MG/2 ML VIAL ONE (21:14)
[2020-02-14] MEDS ORDERED: FOLIC ACID INJ 5 MG/1 ML 10 ML VIAL ONE (21:15)
[2020-02-14] MEDS ORDERED: VANCOMYCIN HCL 1,000 MG in DEXTROSE 5%-WATER 250 ML IV SCH (22:00)
[2020-02-15 01:46] LABS: AMORPHOUS SEDIMENT,URINE TRACE /HPF; APPEARANCE,URINE TURBID; BILIRUBIN,URINE NEGATIVE (NEGATIVE); COLOR,URINE AMBER; GLUCOSE, URINE 50 mg/dL (NEGATIVE); KETONES,URINE NEGATIVE (NEGATIVE); LEUKOCYTE ESTERASE,URINE NEGATIVE (NEGATIVE); NITRITE,URINE NEGATIVE (NEGATIVE); PROTEIN,URINE 30 mg/dL (NEGATIVE); URINE SODIUM 10 mmol/L (30-90); URINE SPECIFIC GRAVITY 1.021; UROBILINOGEN,URINE NEGATIVE mg/dL (<2.0)
[2020-02-15 01:53] LABS: OSMOLALITY,URINE 289 mOsm/kg (300-900)
[2020-02-15] MEDS: MEROPENEM 500 MG in NORMAL SALINE 50 ML IV SCH ×4 (02:33→20:08)
[2020-02-15] MEDS: HYDROMORPHONE HCL INJ/PF 2 MG/ML AMPULE IV PRN (04:06)
[2020-02-15 04:38] LABS: ABSOLUTE BASOPHILS # (AUTO) 0.1 10^3/uL (0.0-0.2); ABSOLUTE EOSINOPHILS # (AUTO) 0.2 10^3/uL (0.0-0.6); ABSOLUTE LYMPHOCYTES (AUTO) 1.5 10^3/uL (0.5-4.7); ABSOLUTE NEUT (AUTO) 13.5 10^3/uL (1.7-8.2); BASOPHILS % (AUTO) 0.5 % (0-2); EOSINOPHILS % (AUTO) 1.1 % (0-6); HEMATOCRIT 23.1 % (37.9-51.0); LYMPHOCYTES % (AUTO) 9.3 % (13-45); MEAN CORPUSCULAR HEMOGLOBIN 36.1 pg (27.0-33.4); MEAN CORPUSCULAR HGB CONC 34.7 g/dL (32.0-36.0); MEAN CORPUSCULAR VOLUME 104 fl (80-97); MONOCYTES % (AUTO) 6.2 % (3-13); PLATELET COUNT 255 10^3/uL (150-450); RED BLOOD COUNT 2.22 10^6/uL (4.35-5.55); RED CELL DISTRIBUTION WIDTH 16.2 % (11.5-14.0); SEGMENTED NEUTROPHILS % (AUTO) 82.9 % (42-78); TOTAL CELLS COUNTED % (AUTO) 100 %; WHITE BLOOD COUNT 16.3 10^3/uL (4.0-10.5)
[2020-02-15 05:07] LABS: ALBUMIN 1.9 g/dL (3.5-5.0); ALKALINE PHOSPHATASE 233 U/L (38-126); ANION GAP 8 (5-19); ASPARTATE AMINO TRANSFERASE 95 U/L (17-59); BILIRUBIN,DIRECT 2.6 mg/dL (0.0-0.4); BILIRUBIN,TOTAL 3.8 mg/dL (0.2-1.3); BLOOD UREA NITROGEN 17 mg/dL (7-20); CALCIUM 7.2 mg/dL (8.4-10.2); CARBON DIOXIDE 21 mmol/L (22-30); CHLORIDE 99 mmol/L (98-107); GLUCOSE 94 mg/dL (75-110); POTASSIUM 4.5 mmol/L (3.6-5.0); TOTAL PROTEIN 5.3 g/dL (6.3-8.2)
[2020-02-15] MEDS: ALBUMIN HUMAN 12.5 GM/50 ML RTUINJ IV SCH ×7 (07:51→23:23)
[2020-02-15] MEDS: LACTULOSE SYRUP 20 GM/30 ML UDCUP PO SCH (09:57)
[2020-02-15] MEDS: PANTOPRAZOLE SODIUM 40 MG VIAL IV SCH (09:57)
[2020-02-15] MEDS ORDERED: MIDODRINE HCL 5 MG TABLET PO SCH ×2 (10:00→18:00)
[2020-02-15 10:34] LABS: INTERNATIONAL RATION (INR) 1.99; PROTHROMBIN TIME 22.7 SEC (11.4-15.4)
[2020-02-15] MEDS ORDERED: ALBUMIN HUMAN 12.5 GM/50 ML RTUINJ IV ONE ×2 (13:00→22:46)
[2020-02-15] MEDS: LORAZEPAM INJ 2 MG/1 ML VIAL IV PRN (13:38)
[2020-02-15] MEDS ORDERED: NORMAL SALINE 1000 ML 1,000 ML IV ONE (15:57)
[2020-02-15] MEDS: RINGERS SOLUTION,LACTATED 1,000 ML IV PRN (17:39)
[2020-02-15] MEDS: FLUCONAZOLE 200 MG/NS RTU 200 MG/100 ML RTUPB IV SCH (17:39)
[2020-02-15] MEDS ORDERED: VANCOMYCIN HCL 750 MG in DEXTROSE 5%-WATER 250 ML IV SCH (18:00)
--- NOTE | 2020-02-15 19:15 | ADVANCED CARE ---
- Diagnosis (1) Sepsis Diagnosis Current: Yes (2) Acute metabolic encephalopathy Diagnosis Current: Yes (3) Alcohol withdrawal Diagnosis Current: Yes (4) Alcohol dependence Diagnosis Current: Yes (5) Splenic hemorrhage Diagnosis Current: Yes (6) Hypotension, unspecified Diagnosis Current: Yes (7) Ascites Diagnosis Current: Yes (8) Transaminitis Diagnosis Current: Yes (9) Hyperbilirubinemia Diagnosis Current: Yes Attendance: Marixa his . Resuscitation Status: Full Code Discussion: I tried to discuss his current state to the patient himself however he was too drowsy. With his permission I spoke to his and discussed his current state and prognosis. With his liver problems and now with an elevated creatinine, and persistent hypotension, told his that his prognosis is very poor with 2 organs failing. His was tearful but was understanding of his current state. She spoke to him again later that day when he was much more awake alert, and and he decided to rescind his DNR status and make him full code. He is decisional of his care. CODE STATUS changed full code. Care Planning Goals: Patient requested to be changed back to full code. Document(s) Completed: None Time Spent: <30 minutes but >16 min spent
--- NOTE | 2020-02-15 19:56 | PDOC PROGRESS REPORT ---
Subjective Progress Note for:: 02/15/20 Subjective:: Kun Flynn, 29/M, known alcoholic with history of alcohol seizures, alcohol withdrawal, acute pancreatitis. He came to the ED February 12 due to abdominal pain and increased drainage from his SAEID drain. The patient is drowsy and has provided very limited history but according to him he started drinking heavily again about 4 days prior to current admission. He was admitted at [facility] about 3 weeks ago due to alcohol abuse and withdrawal. During this time he was treated for alcoholic hepatitis, he also developed splenic hemorrhage. He was taken to the OR by Dr. Medina and intraoperatively it was determined that he cannot be treated surgically here hence he was transferred to [facility]. At [facility]. it was noted that his splenic hemorrhage has spontaneously embolized and instead a SAEID drain was placed splenectomy was not done. In the ED he was noted to be hypotensive and septic hence he was initially admitted in ICU he was started on meropenem and vancomycin. CT abdomen showed diffuse hepatomegaly and fatty infiltrative change. Biliary stent in place. Pancreatic calcifications. Probable reactive enteritis. Surgery was consulted to assess his abdomen. Per Dr. Landrum's notes surgical exploration as to the cause of his chronic abdominal pain would not be in the best interest of the patient. He was eventually transferred to the floors on February 14, 2020. 02/14/20. He was seen and examined at bedside. He was noted to be very drowsy. He was transferred out of the ICU with orders for bourbon whiskey by Dr. Duckworth which he has just gotten when I came in the room. Lactic acid was 6.0 at February 12 at around 8 PM. Repeat lactate in the morning was 2.4. Repeat lactate at 4 PM 3.6. He was given a bolus of 300 mL normal saline on top of his D5 LR which is running at 175 mL/h. We will trend his lactate. He is currently on meropenem and vancomycin for sepsis. Unsure as to the cause of his sepsis since his chest x-ray is clean, urine shows no UTI. Blood culture drawn during admission no growth. Fluid from SAEID drain cultured with no growth on day 1. I tried to reach his his in an attempt to get more history however was unable unable to reach her I left 2 voicemails for her to call me back. 02/15/20. He was seen and examined at bedside. He was very weak looking and drowsy. He complains of abdominal pain and being tired all the time. Blood pressure continues to be low despite IV fluids. SAEID drain site continues to drain significant amount of ascites. Creatinine noted to be elevated to 2.35 t pedro from 1.22 yesterday. He is nonoliguric. This is likely hepatorenal, or prerenal because of significant ascites, or vancomycin. He was started on midodrine and albumin infusion. Dr. Adams from ICU assessed him and recommended to start Diflucan for the Miky growing on his SAEID drain. Continue IV fluids midodrine and albumin infusion Reason For Visit: SEPSIS WITH SHOCK Physical Exam Vital Signs: Temp Pulse Resp BP Pulse Ox 98.8 F 123 H 22 H 85/23 L 98 02/15/20 16:00 02/15/20 16:00 02/15/20 16:00 02/15/20 16:00 02/15/20 16:00 Intake & Output 02/14/20 02/15/20 02/16/20 06:59 06:59 06:59 Intake Total 5152 2691.2 1400 Output Total 1000 1000 Balance 4152 1691.2 1400 Weight 77.2 kg 77.2 kg General appearance: PRESENT: mild distress, thin, other - Weak looking Head exam: PRESENT: atraumatic, normocephalic Eye exam: PRESENT: EOMI, PERRLA Mouth exam: PRESENT: moist Neck exam: PRESENT: full ROM Respiratory exam: PRESENT: clear to auscultation emmanuel, symmetrical, unlabored Cardiovascular exam: PRESENT: RRR, +S1, +S2 GI/Abdominal exam: PRESENT: ascites, distended, soft, tenderness, other - SAEID drain insertion still draining ascitic fluid. Exploratory lap site with alli exposed no signs of infection. Extremities exam: PRESENT: pedal edema, +2 edema Neurological exam: PRESENT: alert, awake, oriented to person, oriented to place, oriented to time Psychiatric exam: PRESENT: appropriate affect Skin exam: PRESENT: normal color Results Laboratory Results: 02/15/20 04:29 02/15/20 04:29 02/14/20 02/14/20 02/14/20 20:35 20:35 20:35 WBC RBC Hgb Hct MCV MCH MCHC RDW Plt Count Seg Neutrophils % Sodium Potassium Chloride Carbon Dioxide Anion Gap BUN Creatinine Est GFR ( Amer) Glucose Serum Osmolality 269 L Lactic Acid 2.1 Calcium Magnesium 1.6 Total Bilirubin AST Alkaline Phosphatase Ammonia Total Protein Albumin Urine Color Urine Appearance Urine pH Ur Specific [place] Urine Protein Urine Glucose (UA) Urine Ketones Urine Blood Urine Nitrite Ur Leukocyte Esterase Urine WBC (Auto) Urine Osmolality 02/15/20 02/15/20 02/15/20 00:33 01:00 01:00 WBC RBC Hgb Hct MCV MCH MCHC RDW Plt Count Seg Neutrophils % Sodium Potassium Chloride Carbon Dioxide Anion Gap BUN Creatinine Est GFR ( Amer) Glucose Serum Osmolality Lactic Acid 3.1 H Calcium Magnesium Total Bilirubin AST Alkaline Phosphatase Ammonia Total Protein Albumin Urine Color DEREK Urine Appearance TURBID Urine pH 5.0 Ur Specific [place] 1.021 Urine Protein 30 H Urine Glucose (UA) 50 H Urine Ketones NEGATIVE Urine Blood NEGATIVE Urine Nitrite NEGATIVE Ur Leukocyte Esterase NEGATIVE Urine WBC (Auto) 10 Urine Osmolality 289 L 02/15/20 02/15/20 02/15/20 04:29 04:29 04:29 WBC 16.3 H RBC 2.22 L Hgb 8.0 L Hct 23.1 L MCV 104 H MCH 36.1 H MCHC 34.7 RDW 16.2 H Plt Count 255 Seg Neutrophils % 82.9 H Sodium 128.0 L Potassium 4.5 Chloride 99 Carbon Dioxide 21 L Anion Gap 8 BUN 17 Creatinine 2.35 H Est GFR ( Amer) 40 L Glucose 94 Serum Osmolality Lactic Acid 2.6 H Calcium 7.2 L Magnesium Total Bilirubin 3.8 H AST 95 H Alkaline Phosphatase 233 H Ammonia Total Protein 5.3 L Albumin 1.9 L Urine Color Urine Appearance Urine pH Ur Specific [place] Urine Protein Urine Glucose (UA) Urine Ketones Urine Blood Urine Nitrite Ur Leukocyte Esterase Urine WBC (Auto) Urine Osmolality 02/15/20 17:15 WBC RBC Hgb Hct MCV MCH MCHC RDW Plt Count Seg Neutrophils % Sodium Potassium Chloride Carbon Dioxide Anion Gap BUN Creatinine Est GFR ( Amer) Glucose Serum Osmolality Lactic Acid Calcium Magnesium Total Bilirubin AST Alkaline Phosphatase Ammonia 34.7 H Total Protein Albumin Urine Color Urine Appearance Urine pH Ur Specific [place] Urine Protein Urine Glucose (UA) Urine Ketones Urine Blood Urine Nitrite Ur Leukocyte Esterase Urine WBC (Auto) Urine Osmolality 02/13/20 09:55 Abdomen - Post Surgical Site Gram Stain - Final 02/13/20 02/13/20 02/13/20 07:40 12:30 18:15 Creatine Kinase 28 L 29 L 27 L Impressions: Head CT 02/13/20 00:56 IMPRESSION: No acute intracranial findings. Abdomen/Pelvis CT 02/13/20 01:10 IMPRESSION: There appears to be overall improvement in the splenic hematoma compared with the prior exam. A few foci of extraluminal air associated with the lateral left abdominal wall in this region may be postoperative in nature. Persistent moderate ascites. Improvement in the left pleural effusion. Diffuse hepatomegaly and fatty infiltrative change. Biliary stent in place. Pancreatic calcifications. Probable reactive enteritis. Question nonspecific colitis. TECHNICAL DOCUMENTATION: Quality ID # 436: Final reports with documentation of one or more dose reduction techniques (e.g., Automated exposure control, adjustment of the mA and/or kV according to patient size, use of iterative reconstruction technique) copyright 2011 [employer]- All Rights Reserved Chest X-Ray 02/14/20 00:00 IMPRESSION: NO ACUTE RADIOGRAPHIC FINDING IN THE CHEST. Assessment and Plan - Diagnosis (1) Acute alcoholic liver disease Is this a current diagnosis for this admission?: Yes Plan: - patient known alcoholic with recent complication of ascites and splenic hemorrhage - AST 95, ALT 28, ALP 233 - Bili 2.1>3.8 - INR 1.9 - likely in liver failure or acute alcoholic hepatitis. I treated him with prednisolone during his last admission and he seems to have responded however with the ongoing concern for sepsis - needs to be transferred to a tertiary care center who has transplant capability. Will consult GI at a tertiary care center. - continue midodrine, albumin and IV fluids - (2) Sepsis Qualifiers: Sepsis type: sepsis due to unspecified organism Sepsis acute organ dysfunction status: with acute organ dysfunction Severe sepsis acute organ dysfunction type: unspecified Severe sepsis shock status: with septic shock Qualified Code(s): A41.9 - Sepsis, unspecified organism; R65.21 - Severe sepsis with septic shock Is this a current diagnosis for this admission?: Yes Plan: -Came in with altered mental status tachypneic and tachycardic -Received IV boluses was briefly on Levophed drip -Lactic acid still elevated at 3.4> 2.1>3.1>2.6 -Blood culture negative x2, x-ray clear, UA no signs of UTI - ascitic fluid cultured growing miky -Source is likely his abdomen given recent surgery however CT scan of the abdomen is not showing -Currently on meropenem - started on diflucan for miky. Will consult ID - vancomycin stopped due to [place] -Continue D5 LR at 175 mL/h (3) Acute metabolic encephalopathy Is this a current diagnosis for this admission?: Yes Plan: -Patient noted to be very drowsy -Likely from sepsis, hyponatremia and Ativan -Ammonia 34.7 unlikely the sole source of drowsiness -We will hold off on CT head - (4) Alcohol withdrawal Qualifiers: Complication of substance-induced condition: with unspecified complication Qualified Code(s): F10.239 - Alcohol dependence with withdrawal, unspecified Is this a current diagnosis for this admission?: Yes Plan: -he was prescribed bourbon whisky by [facility] so he will not go into withdrawal. It has since been stopped -CIWA scoring -Thiamine and folic acid via IV provided -PRN Ativan for withdrawal (5) Splenic hemorrhage Is this a current diagnosis for this admission?: Yes Plan: -Noted on prior admission 3 weeks ago -He was taken to the operating room by Dr. Medina could not perform a splenectomy that time. He was transferred to [facility] where surgery took another look at his belly and found that his splenic hemorrhage has auto embolized. SAEID drain was instead placed. And he was sent home -Abdominal exam showed abdominal distention hypoactive bowel sounds -CT of the abdomen and pelvis during admission showed severe hepatomegaly and fatty changes to the liver. Biliary stent in place. Diffusely heterogenous enhancement to the liver. Interval decrease in size of the perisplenic fluid collection/hematoma. Persistent moderate ascites -Globin stable at 8.0 no indication for transfusion -We will continue to monitor (6) Hypotension, unspecified Qualifiers: Hypotension type: unspecified hypotension type Qualified Code(s): I95.9 - Hypotension, unspecified Is this a current diagnosis for this admission?: Yes Plan: - persistent -This can be a combination of ongoing sepsis with his liver problem - started on midodrine 15 TID, albumin infusion and IV fluids - lactic acid continues to be elevated despite IV fluids and Abx which is a poor prognostic sign -Antibiotics ongoing, with fluid resuscitation - (7) Ascites Qualifiers: Ascites type: due to alcoholic hepatitis Qualified Code(s): K70.11 - Alcoholic hepatitis with ascites Is this a current diagnosis for this admission?: Yes Plan: -Moderate ascites per CT report -SAEID drain with significant drainage -Culture of SAEID drainage Miky. Unsure if contaminant, will start diflucan and consult ID tomorrow (8) Transaminitis Is this a current diagnosis for this admission?: Yes Plan: -AST 95, ALT 28, Bili 2.1>3.8 - from liver failure - continue to monitor daily CMP (9) Hyperbilirubinemia Is this a current diagnosis for this admission?: Yes Plan: -Bilirubin 2.9>3.8 -Consistent with his hepatic disease Continue to monitor (10) Miky infection Is this a current diagnosis for this admission?: Yes Plan: - grew in the ascitic fluid. Unsure if this is a contaminant - started on diflucan and consult ID tomorrow (11) Alcohol dependence Qualifiers: Substance use status: unspecified alcohol-induced disorder Qualified Code(s): F10.29 - Alcohol dependence with unspecified alcohol-induced disorder Is this a current diagnosis for this admission?: No Plan: -admitted multiple times in the past for alcohol related problems like seizures, now with liver failure - if he survives he would need to go to rehab for alcohol dependence. - Time Time Spent with patient: 35 or more minutes Anticipated Discharge Disposition: Home, Self Care Anticipated Discharge Timeframe: to be determined
[2020-02-16] MEDS ORDERED: MIDODRINE HCL 5 MG TABLET PO ONE (00:30)
[2020-02-16] MEDS: MEROPENEM 500 MG in NORMAL SALINE 50 ML IV SCH ×2 (02:27→10:43)
[2020-02-16] MEDS: RINGERS SOLUTION,LACTATED 1,000 ML IV PRN ×2 (05:21→09:13)
[2020-02-16] MEDS: MIDODRINE HCL 5 MG TABLET PO SCH ×3 (05:22→18:24)
[2020-02-16 06:12] LABS: ABSOLUTE BASOPHILS # (AUTO) 0.1 10^3/uL (0.0-0.2); ABSOLUTE EOSINOPHILS # (AUTO) 0.1 10^3/uL (0.0-0.6); ABSOLUTE LYMPHOCYTES (AUTO) 1.1 10^3/uL (0.5-4.7); ABSOLUTE NEUT (AUTO) 12.3 10^3/uL (1.7-8.2); BASOPHILS % (AUTO) 0.7 % (0-2); EOSINOPHILS % (AUTO) 0.8 % (0-6); HEMATOCRIT 19.8 % (37.9-51.0); LYMPHOCYTES % (AUTO) 7.7 % (13-45); MEAN CORPUSCULAR VOLUME 103 fl (80-97); MONOCYTES % (AUTO) 6.9 % (3-13); PLATELET COUNT 224 10^3/uL (150-450); RED BLOOD COUNT 1.93 10^6/uL (4.35-5.55); RED CELL DISTRIBUTION WIDTH 16.2 % (11.5-14.0); SEGMENTED NEUTROPHILS % (AUTO) 83.9 % (42-78); TOTAL CELLS COUNTED % (AUTO) 100 %; WHITE BLOOD COUNT 14.6 10^3/uL (4.0-10.5)
[2020-02-16 06:19] LABS: HEMOGLOBIN 6.7 g/dL (13.5-17.0)
[2020-02-16 06:23] LABS: ALKALINE PHOSPHATASE 180 U/L (38-126); ANION GAP 8 (5-19); ASPARTATE AMINO TRANSFERASE 70 U/L (17-59); BILIRUBIN,DIRECT 3.6 mg/dL (0.0-0.4); BLOOD UREA NITROGEN 18 mg/dL (7-20); CALCIUM 7.3 mg/dL (8.4-10.2); CARBON DIOXIDE 22 mmol/L (22-30); CHLORIDE 101 mmol/L (98-107); GLUCOSE 81 mg/dL (75-110); POTASSIUM 4.7 mmol/L (3.6-5.0); TOTAL PROTEIN 5.1 g/dL (6.3-8.2)
[2020-02-16] MEDS ORDERED: DIPHENHYDRAMINE HCL 25 MG CAPSULE PO PRN (06:36)
[2020-02-16] MEDS ORDERED: ACETAMINOPHEN 325 MG TABLET PO PRN (06:36)
[2020-02-16] MEDS ORDERED: NORMAL SALINE 250 ML IV PRN ×2 (06:36)
[2020-02-16 06:49] LABS: URINE CREATININE 164.3 mg/dL (24-392)
[2020-02-16 06:59] LABS: URINE SODIUM < 5 mmol/L (30-90)
[2020-02-16] MEDS: LACTULOSE SYRUP 20 GM/30 ML UDCUP PO SCH (10:45)
--- NOTE | 2020-02-16 12:02 | PDOC CONSULTATION ---
Consultation Consult Date: 02/16/20 Provider Consulted: Darshana IRIZARRY Consult reason:: KAROLINA in the setting of shock History of Present Illness Admission Date/PCP: 02/13/20 05:51 History of Present Illness: NICK ESTRELLA is a 29 year old male with history of Alcohol liver disease with history of alcohol seizures, alcohol withdrawal, acute pancreatitis was admitted on the for the second time in this month. Initially he was admitted at [facility] in the beginning of the month due to alcohol abuse and withdrawal. During this time he was diagnosed and treated for alcoholic hepatit is. Incidentally he also developed splenic hemorrhage. He was taken to the OR by Dr. Medina / surgicalist and intraoperatively it was determined that he cannot be treated surgically here hence he was transferred to [facility]. At [facility], it was noted that his splenic hemorrhage has spontaneously embolized and instead a DILEEP drain was placed splenectomy was not done. He was discharged home from [facility] and the patient apparently began to drink his usual bottle of vodka on a daily basis post discharge. This admission ,he came to the ED February 12 due to abdominal pain and increased drainage from his DILEEP drain. The patient was drowsy and has provided very limited history but according to him he started drinking heavily again about 4 days prior to current admission. In the ED he was noted to be hypotensive and septic hence he was initially admitted in ICU he was started on meropenem and vancomycin. CT abdomen showed diffuse hepatomegaly and fatty infiltrative change. Biliary stent in place. Pancreatic calcifications. Probable reactive enteritis. Surgery was consulted to assess his abdomen. He was seen by Dr. Landrum who after evaluations opined that surgical exploration would not be in the best interest of the patient and advised conservative management. Patient is remained rather hypotensive during his current admission. He still has generalized abdominal pains which he says is remained such postoperatively during his early admission this month. His lactic acid was initially 6 has come down to around 2+. Patient has had multiple boluses of fluid given. His wound cultures are polymicrobial and shows Enterobacter/enterococcus/ESBL Klebsiella. His vancomycin trough level on the came back high at 24 and no further levels have been repeated. The patient's urine output is dropping.The patient admits to the fact that he has been drinking more than a bottle of vodka/ day for the last many years. He also admits to the fact he has been using intermittent ibuprofen/Tylenol for various aches and pains. Currently patient denies any history of fever or chills. He feels very weak and tired and wants to be left alone. Past Medical History Cardiac Medical History: Reports: None Pulmonary Medical History: Reports: None EENT Medical History: Reports: None Neurological Medical History: Reports: Seizures - ETOH withdrawal seizures Endocrine Medical History: Reports: None Complications of Diabetes: Reports: None Renal/ Medical History: Reports: None Malignancy Medical History: Reports: None GI Medical History: Reports: Hepatitis - Alcohol related Musculoskeltal Medical History: Reports: None Skin Medical History: Reports: None Psychiatric Medical History: Reports: Alcohol Dependency Denies: Depression Traumatic Medical History: Reports: None Infectious Medical History: Reports: None Past Surgical History Past Surgical History: Reports: Cholecystectomy, Other - abdominal surgery for hematoma on the spleen done at [facility] Social History Lives with: Family Smoking Status: Current Every Day Smoker Cigarettes Packs Per Day: 1 Electronic Cigarette use?: No Number of Years Smokin Last Time Smoked: 02/13/20 Frequency of Alcohol Use: Occasional Hx Recreational Drug Use: No Drugs: None Hx Prescription Drug Abuse: No - Advance Directive Resuscitation Status: Full Code Family History Parental Family History Reviewed: Yes - Negative for CKD Children Family History Reviewed: No Sibling(s) Family History Reviewed.: No Medication/Allergy Home Medications: Furosemide [Lasix 40 mg Tablet] 40 mg PO QAM 02/13/20 Lactulose 15 ml PO DAILY 02/13/20 Propranolol HCl [Inderal 10 mg Tablet] 10 mg PO Q8 02/13/20 Spironolactone [Aldactone 100 mg Tablet] 1 tab PO DAILY 02/13/20 Allergies/Adverse Reactions: No Known Allergies Allergy (Verified 02/13/20 00:32) Review of Systems Constitutional: PRESENT: anorexia, fatigue, weakness, weight loss. ABSENT: chills, fever(s), headache(s), night sweats Cardiovascular: PRESENT: dyspnea on exertion, edema. ABSENT: chest pain, orthropnea, palpitations Respiratory: PRESENT: dyspnea. ABSENT: cough, hemoptysis Gastrointestinal: PRESENT: abdominal pain, bloating, nausea. ABSENT: dysphagia, heartburn, hematemesis, vomiting Genitourinary: ABSENT: dysuria, hematuria Musculoskeletal: ABSENT: deformity, joint swelling Integumentary: ABSENT: erythema, lesions, pruritus, rash Neurological: ABSENT: abnormal speech, confusion, convulsions, focal weakness, frequent falls Psychiatric: ABSENT: hallucinations Endocrine: ABSENT: heat intolerance Hematologic/Lymphatic: ABSENT: easy bleeding, easy bruising, lymphadenopathy Physical Exam Vital Signs: Temp Pulse Resp BP Pulse Ox 97.9 F 94 16 99/41 L 95 02/16/20 08:00 02/16/20 08:00 02/16/20 08:00 02/16/20 08:00 02/16/20 08:00 Intake & Output 02/15/20 02/16/20 02/17/20 06:59 06:59 06:59 Intake Total 2691.2 2650 580 Output Total 1000 800 Balance 1691.2 1850 580 Weight 77.2 kg 77.2 kg General appearance: PRESENT: no acute distress Eye exam: PRESENT: EOMI, PERRLA, scleral icterus Ear exam: PRESENT: normal external ear exam Mouth exam: PRESENT: moist, neck supple Neck exam: ABSENT: lymphadenopathy, meningismus, tenderness, thyromegaly, tracheal deviation Respiratory exam: PRESENT: clear to auscultation emmanuel, decreased breath sounds. ABSENT: crackles Cardiovascular exam: PRESENT: +S1, +S2 GI/Abdominal exam: PRESENT: firm, normal bowel sounds, tenderness - Generalized.. ABSENT: rebound Extremities exam: PRESENT: +1 edema Neurological exam: PRESENT: oriented to person, oriented to place. ABSENT: alert - Rather drowsy., oriented to time Psychiatric exam: PRESENT: flat affect Skin exam: ABSENT: erythema, mottled, rash Results Laboratory Results: 02/16/20 04:56 02/16/20 04:56 02/15/20 02/16/20 02/16/20 17:15 04:56 04:56 WBC 14.6 H RBC 1.93 L Hgb 6.7 L Hct 19.8 L MCV 103 H MCH 35.0 H MCHC 34.0 RDW 16.2 H Plt Count 224 Seg Neutrophils % 83.9 H Sodium 130.6 L Potassium 4.7 Chloride 101 Carbon Dioxide 22 Anion Gap 8 BUN 18 Creatinine 2.93 H Est GFR ( Amer) 31 L Glucose 81 Calcium 7.3 L Total Bilirubin 5.0 H AST 70 H Alkaline Phosphatase 180 H Ammonia 34.7 H Total Protein 5.1 L Albumin 2.0 L Blood Type Antibody Screen 02/16/20 07:53 WBC RBC Hgb Hct MCV MCH MCHC RDW Plt Count Seg Neutrophils % Sodium Potassium Chloride Carbon Dioxide Anion Gap BUN Creatinine Est GFR ( Amer) Glucose Calcium Total Bilirubin AST Alkaline Phosphatase Ammonia Total Protein Albumin Blood Type A POSITIVE Antibody Screen NEGATIVE 02/13/20 09:55 Abdomen - Post Surgical Site Gram Stain - Final 02/13/20 09:55 Abdomen - Post Surgical Site Wound Culture - Final Enterobacter Cloacae Enterococcus Faecalis(Group D) Klebsiella Pneumoniae-Esbl 02/13/20 19:57 Dileep Drainage (Timothy Pereira) Gram Stain - Final 02/13/20 19:57 Dileep Drainage (Timothy Pereira) Body Fluid Culture - Final C.albicans/C.dubliniensis No Anaerobic Organisms 02/13/20 02/13/20 02/13/20 07:40 12:30 18:15 Creatine Kinase 28 L 29 L 27 L Impressions: Head CT 02/13/20 00:56 IMPRESSION: No acute intracranial findings. Abdomen/Pelvis CT 02/13/20 01:10 IMPRESSION: There appears to be overall improvement in the splenic hematoma compared with the prior exam. A few foci of extraluminal air associated with the lateral left abdominal wall in this region may be postoperative in nature. Persistent moderate ascites. Improvement in the left pleural effusion. Diffuse hepatomegaly and fatty infiltrative change. Biliary stent in place. Pancreatic calcifications. Probable reactive enteritis. Question nonspecific colitis. TECHNICAL DOCUMENTATION: Quality ID # [id number]: Final reports with documentation of one or more dose reduction techniques (e.g., Automated exposure control, adjustment of the mA and/or kV according to patient size, use of iterative reconstruction technique) copyright 2011 [employer]- All Rights Reserved Chest X-Ray 02/14/20 00:00 IMPRESSION: NO ACUTE RADIOGRAPHIC FINDING IN THE CHEST. Assessment & Plan - Diagnosis (1) KAROLINA (acute kidney injury) Plan: Multifactorial. Differential diagnosis/multiple etiologies includes septic shock from polymicrobial wound infection growing multiple bacteria including Enterobacter/enterococcus/ESBL Klebsiella currently on meropenem which needs to be renally dose adjusted, hypotension, possible hepatorenal syndrome and vancomycin toxicity. This patient is extremely critical and unfortunately in the background of alcoholic liver cirrhosis with portal hypertension has a g uarded prognosis. I would continue on fluid resuscitation/continue treatment with meropenem and I will adjust the dose accordingly for his renal functions. The patient is already third spacing as seen by his severe pedal edema and his severely low albumin. Obviously in this situation giving too much of fluids would result in worsening of his third spacing without really helping his blood pressure Given his persistent hypotension I would recommend he be started on low-dose Levophed which would require transfer to ICU. If he continues to drop his urine output with worsening renal function he would need renal replacement therapy. Unfortunately if he remains hypotensive, he would need to be on CRRT which we do not have in this hospital and therefore would require transfer to a tertiary care center. Please dose medications for GFR of less than 25 cc/min. Discussed with hospitalist. (2) Acute alcoholic liver disease Is this a current diagnosis for this admission?: Yes Plan: Continues to have persistent abnormal LFTs indicative of septic shock/alcoholic hepatitis/alcoholic liver cirrhosis.All of this points towards a poor prognosis. (3) Acute liver failure Qualifiers: Plan: As mentioned earlier. Unfortunately patient has got alcoholic liver cirrhosis and unable to quit alcohol as seen by drinking of large amounts of alcohol post recent discharge from the [facility]. (4) Alcohol dependence Qualifiers: Substance use status: unspecified alcohol-induced disorder Qualified Code(s): F10.29 - Alcohol dependence with unspecified alcohol-induced disorder Is this a current diagnosis for this admission?: No Plan: As mentioned earlier. Monitor for withdrawal. (5) Alcoholic cirrhosis of liver without ascites Is this a current diagnosis for this admission?: Yes Plan: As mentioned earlier. (6) Anemia Plan: Probably multifactorial. Initiate work-up. Currently hb has dropped to 6 +, that would be requiring transfusions. Evaluations and management to be led by hospitalist. (7) Hyponatremia Plan: Stable. Monitor. Continue IV fluids as such. (8) Splenic hemorrhage Is this a current diagnosis for this admission?: Yes Plan: As per diagnosis earlier of this month. Was transferred to tertiary care center and apparently self embolized. Patient is high risk for any sort of surgical interventions unfortunately. Current drop in hemoglobin is concerning. (9) Wound infection after surgery Plan: Polymicrobial that includes Enterobacter/enterococcus/ESBL Klebsiella. Con tinue on meropenem to be dosed renally adjusted for GFR less than 25 cc/min.
--- NOTE | 2020-02-16 12:18 | RADIOLOGY REPORT (SQ) ---
EXAM DESCRIPTION: U/S RETROPERITON (RENAL/AORTA) IMAGES COMPLETED DATE/TIME: 02/16/2020 12:04 pm REASON FOR STUDY: KAROLINA COMPARISON: None. TECHNIQUE: Dynamic and static grayscale images acquired of the kidneys and bladder and recorded on P ACS. Additional selected color Doppler and spectral images recorded. LIMITATIONS: None. FINDINGS: RIGHT KIDNEY: Normal size, 12.7 cm. Normal echogenicity. No solid or suspicious masses. No hydronephrosis. No calcifications. LEFT KIDNEY: Normal size, 14.2 cm. Normal echogenicity. No solid or suspicious masses. No hydronephr osis. No calcifications. BLADDER: There is a catheter in the bladder so the bladder is not evaluated. There is a small amount of free fluid in the pelvis. OTHER FINDINGS: No other significant finding. IMPRESSION: Normal renal ultrasound. There is small amount of free fluid in the pelvis. TECHNICAL DOCUMENTATION: JOB ID: [id number] 2010 [employer]- All Rights Reserved Reading location - IP/workstation name: [email or web address]
[2020-02-16] MEDS ORDERED: METOCLOPRAMIDE HCL INJ/PF 10 MG/2 ML SDV IV ONE (15:00)
[2020-02-16] MEDS: METOCLOPRAMIDE HCL INJ/PF 10 MG/2 ML SDV IV ONE ×2 (15:04→18:39)
--- NOTE | 2020-02-16 15:16 | Progress Note ---
Provider Note Provider Note: [facility] ID - Telephone / remote consultation note Review patient's chart in the EHR and discussed case with the patient's hospitalist. Mr. Flynn is a 29 year old man with alcohol abuse resulting in alcoholic cirrhosis, an episode of sepsis due to E coli bacteremia in Jan 2020, portal hypertension with spontaneous splenic hemorrhage and autoembolization for which he underwent exploratory laparotomy also earlier this month Jan 2020, and current admission to [facility] on 02/13/20 with sepsis (fever, tachycardia, hypotension, leukocytosis), acute hepatitis, and multiple electrolyte disturbances and precipitated by continued alcohol abuse. Additionaly, he has developed acute kidney injury. On exam by other providers, the patient was noted as having firm abdomen due to underlying hepatomegaly and splenomegaly with well healed midline scar without s/s of wound infection involving the incision; he has a drainage bag applied over the former SAEID site at the left abdominal wall with intermittent ascitic drainage. His abdomen was tender to palpation diffusely but without obvious peritoneal signs. Studies include: Blood cultures on 02/12 negative x 2 sets. UCx is negative. CXR showed no acute radiographic finding in the chest. CT abdomen/pelvis without contrast on 02/13/20 was read as showing interval decrease in size of the perisplenic fluid collection/hematoma. Patient was initially admitted ot the ICU where meropenem and vancomycin were initiated; the latter was discontinued due to KAROLINA. Fluid from the SAEID drain was sent for culture and has grown multiple organisms: Enterobacter cloacae, Enterococcus faecalis (susceptible to ampicillin), ESBL Klebsiella pneumoniae, and Leeann albicans. As a result, fluconazole was added on 02/15/20. Impression This is a young man with ongoing alcohol abuse, alcoholic hepatitis, alcoholic cirrhosis with portal hypertension, acute kidney injury, and ascites who was noted to have a diffusely tender abdomen, fever, leukocytosis, tachycardia and hypotension and an intraabdominal source of sepsis suspected. The splenic collection potentially could represent an abscess, bland hematoma, or infected hematoma. However, it has had interval decrease in size, which I would not expect in absence of drainage and antibiotics if it was infected. Spontaneous bacterial or candidal peritonitis remains a possibility. The patient had diffuse abdominal tenderness and has ascites, along with fever. Unusual features - Most SBP is bacterial, rather than candidal. Polymicrobial bacterial peritonitis would also be atypical unless it is in the setting of gut perforation. These features raise questions about how the specimen was collected and whether or not the culture growth of these organisms could represent contamination. Unfortunately, no paracentesis was performed, and the patient has received antifungal and antibacterial therapy since 02/14 and 02/12, respectively. Obtaining ascitic fluid for analysis may be illuminating if it shows elevated PMNs consistent with the SBP diagnosis, but culture yield may be decreased. Recommendations Given some of the limitations in diagnosis in this case, the most reasonable management of his antibiotics and antimicrobial therapy may be to continue both for now - meropenem and fluconazole, renally dose adjusted. Duration of therapy for bacterial SBP is usually 5 days but could be extended to 7 or 10 days if slow clinical response. Duration of therapy is less clear for candidal peritonitis - usually in the range of 2-4 weeks. Would aim for 2 weeks. SBP prophylaxis is also difficult to address considering that the diagnosis is not on firm grounds. If he can have paracentesis that confirms this as an episode of SBP based on PMN count and he has ongoing ascites, there may be an indication to continue the patient on some kind of prophylaxis, such as with ciprofloxacin. Gibran Baltazar MD [facility] Infectious Diseases pager [phone]
[2020-02-16 16:27] LABS: ABSOLUTE BASOPHILS # (AUTO) 0.2 10^3/uL (0.0-0.2); ABSOLUTE EOSINOPHILS # (AUTO) 0.1 10^3/uL (0.0-0.6); ABSOLUTE LYMPHOCYTES (AUTO) 1.4 10^3/uL (0.5-4.7); ABSOLUTE MONOCYTES (AUTO) 1.3 10^3/uL (0.1-1.4); ABSOLUTE NEUT (AUTO) 15.4 10^3/uL (1.7-8.2); BASOPHILS % (AUTO) 0.9 % (0-2); EOSINOPHILS % (AUTO) 0.7 % (0-6); LYMPHOCYTES % (AUTO) 7.4 % (13-45); MEAN CORPUSCULAR HEMOGLOBIN 33.9 pg (27.0-33.4); MEAN CORPUSCULAR HGB CONC 34.4 g/dL (32.0-36.0); MONOCYTES % (AUTO) 7.2 % (3-13); PLATELET COUNT 272 10^3/uL (150-450); RED BLOOD COUNT 2.33 10^6/uL (4.35-5.55); RED CELL DISTRIBUTION WIDTH 19.3 % (11.5-14.0); SEGMENTED NEUTROPHILS % (AUTO) 83.8 % (42-78); TOTAL CELLS COUNTED % (AUTO) 100 %; WHITE BLOOD COUNT 18.3 10^3/uL (4.0-10.5)
[2020-02-16 16:30] LABS: MEAN CORPUSCULAR VOLUME 99 fl (80-97)
[2020-02-16 16:32] LABS: HEMOGLOBIN 7.9 g/dL (13.5-17.0)
[2020-02-16] MEDS: FLUCONAZOLE 200 MG/NS RTU 200 MG/100 ML RTUPB IV SCH (18:25)
[2020-02-16] MEDS ORDERED: ALBUMIN HUMAN 12.5 GM/50 ML RTUINJ IV SCH (18:30)
[2020-02-16] MEDS ORDERED: PHYTONADIONE INJ 10 MG/1 ML AMPULE IV ONE (19:00)
--- NOTE | 2020-02-16 20:39 | PDOC TRANSFER SUMMARY ---
General Admission Date/PCP: 02/13/20 05:51 Resuscitation Status: Full Code - Transfer Diagnosis (1) KAROLINA (acute kidney injury) Is this a current diagnosis for this admission?: Yes Diagnosis Summary: Came in with normal creatinine. February 15, 2020 creatinine noted to have doubled overnight. February 15 creatinine 2.93 and patient is becoming oliguric. Nephrology was consulted and suspect that he would soon need dialysis and in light of his persistent hypotension he will likely need CRRT. To transf er to tertiary care center for CRRT. He was accepted at [facility]. (2) Acute alcoholic liver disease Is this a current diagnosis for this admission?: Yes Diagnosis Summary: Patient is a known alcoholic, with previous admissions for alcohol withdrawal, alcohol intoxication, alcohol withdrawal seizures acute pancreatitis due to alcohol. He was initially admitted at [facility] January 25, 2020 due to abdominal pain alcohol intoxication. He was receiving Ativan for alcohol withdrawal during this admission he was also found to have ascites. CT scan of the abdomen on January 24 showed significant medical hepatic disease, steatosis, hepatomegaly. Complex cystic and solid lesion adjacent to the lower pole of the spleen unsure if splenic or pancreatic origin. Plastic stent spanning the common bile duct. During this admission he continued to have abdominal pain, with persistent fevers, worsening LFTs. His Madrey score was calculated to was high hence he was started on prednisolone. During this time he was also treated with Zosyn for suspected SBP. On the sixth day of his admission he became hy potensive and continued to have abdominal pain. Repeat CT of the abdomen showed splenic hemorrhage hence surgery was consulted. He was taken to the OR for possible splenectomy however surgeon was unable to perform splenectomy due to significant bleeding. Abdominal wound was closed and he was subsequently transferred to [facility] for further management. While in [facility], his splenic hemorrhage has also embolized and there was no need to remove his spleen however there was significant ascites hence a DILEEP drain was placed. He stayed there for a few days and was subsequently discharged on furosemide, spironolactone, propranolol. He was also discharged on bourbon whiskey to prevent withdrawal I assume. He continued to have abdominal pain at home hence he came to [place] ED again on February 13, 2020. (3) Sepsis Is this a current diagnosis for this admission?: Yes Diagnosis Summary: -Came in the ED due to hypotension tachycardia and fever. Initially admitted in the ICU and was treated for sepsis started on meropenem and vancomycin. He was briefly on levofed. He was eventually transferred to floors. He continued to be hypotensive on the floors. Drainage from his previous DILEEP drain site was sent for culture and is currently growing Leeann albicans. E ID was consulted who recommended to continue with Diflucan and meropenem for now. He received about 2 days of vancomycin which was stopped on 02/14 due to KAROLINA. (4) Acute metabolic encephalopathy Is this a current diagnosis for this admission?: Yes Diagnosis Summary: -Repeat ammonia normal this is likely multifactorial from ongoing sepsis and acute liver hepatitis/failure (5) Alcohol withdrawal Is this a current diagnosis for this admission?: Yes Diagnosis Summary: -He was discharged on vitamin with prescription for bourbon whiskey which I assume is to prevent him from going into withdrawal. This was stopped on January 14. (6) Splenic hemorrhage Is this a current diagnosis for this admission?: Yes Diagnosis Summary: -No splenectomy done at [facility] because he has already on to embolize the bleeding. Hemoglobin dropped to 6.7 this morning no source of bleeding identified awaiting repeat CT abdomen. Current hemoglobin 7.9 after receiving 1 unit of packed RBC (7) Hypotension, unspecified Is this a current diagnosis for this admission?: Yes Diagnosis Summary: Currently on midodrine 15 3 times daily, received several doses of albumin infusion. This is likely multifactorial from liver problems on top of ongoing sepsis. (8) Ascites Is this a current diagnosis for this admission?: Yes Diagnosis Summary: -Still with continued drainage from previous DILEEP drain site insertion. (9) Transaminitis Is this a current diagnosis for this admission?: Yes Diagnosis Summary: Likely from alcohol. Transaminitis has been improving since admission. (10) Hyperbilirubinemia Is this a current diagnosis for this admission?: Yes Diagnosis Summary: This continues to trend up since admission. Currently at 5.0. (11) Leeann infection Is this a current diagnosis for this admission?: Yes Diagnosis Summary: Started on Diflucan on February 22 isolated on fluids coming out of his previous DILEEP drain insertion (12) Alcohol dependence Is this a current diagnosis for this admission?: Yes Diagnosis Summary: -Was receiving medically prescribed bourbon whiskey. Last given February 14 - Transfer Medications Home Medications: Furosemide [Lasix 40 mg Tablet] 40 mg PO QAM 02/13/20 Lactulose 15 ml PO DAILY 02/13/20 Propranolol HCl [Inderal 10 mg Tablet] 10 mg PO Q8 02/13/20 Spironolactone [Aldactone 100 mg Tablet] 1 tab PO DAILY 02/13/20 Transfer Medications: Current Medications Acetaminophen (Tylenol 325 Mg Tablet) 650 mg PO .BEFORE TRANSFUSION PRN PRN Reason: THIS MED IS NOT "PRN" Stop: 02/17/20 06:35 Dextrose (Dextrose Inj 50% Syringe (25 Gm/50 Ml)) 12.5 gm IV PRN PRN; Protocol PRN Reason: FOR BG 50-69 IN ALERT PATIENT Stop: 03/14/20 06:03 Dextrose (Dextrose Inj 50% Syringe (25 Gm/50 Ml)) 25 gm IV PRN PRN; Protocol PRN Reason: See Label Comments Stop: 03/14/20 06:03 Diphenhydramine HCl (Benadryl 25 Mg Capsule) 25 mg PO .BEFORE TRANSFUSION PRN PRN Reason: THIS MED IS NOT "PRN" Stop: 02/17/20 06:35 Glucagon (Glucagen Inj 1 Mg Vial) 1 mg SUBCUT PRN PRN; Protocol PRN Reason: Evaluate for BG < 70 Stop: 03/14/20 06:03 Glucose (Glutose 40% Gel 15 Gm Tube) 15 gm PO PRN PRN; Protocol PRN Reason: For BG 50-69 in Alert Patient Stop: 03/14/20 06:03 Glucose (Glutose 40% Gel 15 Gm Tube) 30 gm PO PRN PRN; Protocol PRN Reason: FOR BG < 50 IN ALERT PATIENT Stop: 03/14/20 06:03 Hydromorphone HCl (Dilaudid Inj/Pf 2 Mg/Ml Ampule) 1 mg IV Q2HP PRN PRN Reason: FOR PAIN Stop: 02/20/20 08:39 Last Admin: 02/15/20 04:06 Dose: 1 mg Documented by: Lactated Ringer's (Lactated Ringers 1000 Ml Iv Soln) 1,000 mls @ 150 mls/hr IV CONTINUOUS PRN PRN Reason: THIS MED IS NOT "PRN" Stop: 03/16/20 16:01 Last Admin: 02/16/20 09:13 Dose: 150 mls/hr Documented by: Fluconazole/Sodium Chloride (Diflucan Rtu 200 Mg/Ns 100 Ml Premix) 200 mg in 100 mls @ 100 mls/hr IV QPM DESMOND Stop: 02/22/20 17:59 Last Admin: 02/16/20 18:25 Dose: 100 mls/hr, 100 mls/hr Documented by: Sodium Chloride (Nacl 0.9% 250 Ml Iv Soln) 250 mls @ 30 mls/hr IV .DURING TRANSFUSION PRN PRN Reason: THIS MED IS NOT "PRN" Stop: 02/17/20 06:35 Sodium Chloride (Nacl 0.9% 250 Ml Iv Soln) 250 mls @ 0 mls/hr IV CONTINUOUS PRN PRN Reason: AFTER EACH UNIT Stop: 02/17/20 06:35 Meropenem 500 mg/ Sodium (Chloride) 50 mls @ 100 mls/hr IV Q12 DESMOND Stop: 02/23/20 21:59 Albumin Human (Albuminar-25 Rtu Inj 12.5 Gm/50 Ml Premix) 12.5 gm in 50 mls @ 50 mls/hr IV Q1H DESMOND Stop: 02/16/20 22:29 Last Admin: 02/16/20 19:47 Dose: 50 mls/hr, 50 mls/hr Documented by: Lactulose (Cephulac Syrup 20 Gm/30 Ml Udcup) 10 gm PO DAILY DESMOND Stop: 03/14/20 09:59 Last Admin: 02/16/20 10:45 Dose: 10 gm Documented by: Lorazepam (Ativan Inj 2 Mg/1 Ml Vial) 2 mg IV Q2HP PRN PRN Reason: ANXIETY/AGITATION Stop: 02/20/20 08:36 Last Admin: 02/15/20 13:38 Dose: 2 mg Documented by: Midodrine (Proamatine 5 Mg Tablet) 15 mg PO Q6 DESMOND Stop: 03/17/20 05:59 Last Admin: 02/16/20 18:24 Dose: 15 mg Documented by: Sodium Chloride (Saline Flush 2.5 Ml Monoject Prefil Syrin) 2.5 ml IV Q8 DESMOND Stop: 03/14/20 13:59 Last Admin: 02/16/20 15:13 Dose: Not Given Documented by: - Allergies Allergies/Adverse Reactions: No Known Allergies Allergy (Verified 02/13/20 00:32) Hospital Course Hospital Course: Kun Flynn, 29/M, known alcoholic with history of alcohol seizures, alcohol withdrawal, acute pancreatitis. He came to the ED February 12 due to abdominal pain and increased drainage from his DILEEP drain. The patient is drowsy and has provided very limited history but according to him he started drinking heavily again about 4 days prior to current admission. He was admitted at [facility] about 3 weeks ago due to alcohol abuse and withdrawal. During this time he was treated for alcoholic hepatitis, he also developed splenic hemorrhage. He was taken to the OR by Dr. Medina and intraoperatively it was determined that he cannot be treated surgically here hence he was transferred to [facility]. At [facility]. it was noted that his splenic hemorrhage has spontaneously embolized and instead a DILEEP drain was placed splenectomy was not done. In the ED he was noted to be hypotensive and septic hence he was initially admitted in ICU he was started on meropenem and vancomycin. CT abdomen showed diffuse hepatomegaly and fatty infiltrative change. Biliary stent in place. Pancreatic calcifications. Probable reactive enteritis. Surgery was consulted to assess his abdomen. Per Dr. Landrum's notes surgical exploration as to the cause of his chronic abdominal pain would not be in the best interest of the patient. He was eventually transferred to the floors on February 14, 2020. 02/14/20. He was seen and examined at bedside. He was noted to be very drowsy. He was transferred out of the ICU with orders for bourbon whiskey by Dr. Duckworth which he has just gotten when I came in the room. Lactic acid was 6.0 at February 12 at around 8 PM. Repeat lactate in the morning was 2.4. Repeat lactate at 4 PM 3.6. He was given a bolus of 300 mL normal saline on top of his D5 LR which is running at 175 mL/h. We will trend his lactate. He is currently on meropenem and vancomycin for sepsis. Unsure as to the cause of his sepsis since his chest x-ray is clean, urine shows no UTI. Blood culture drawn during admission no growth. Fluid from DILEEP drain cultured with no growth on day 1. I tried to reach his his in an attempt to get more history however was unable unable to reach her I left 2 voicemails for her to call me back. 02/15/20. He was seen and examined at bedside. He was very weak looking and drowsy. He complains of abdominal pain and being tired all the time. Blood pressure continues to be low despite IV fluids. DILEEP drain site continues to drain significant amount of ascites. Creatinine noted to be elevated to 2.35 today from 1.22 yesterday. He is nonoliguric. This is likely hepatorenal, or prerenal because of significant ascites, or vancomycin. He was started on midodrine and albumin infusion. Dr. Adams from ICU assessed him and recommended to start Diflucan for the Leeann growing on his DILEEP drain. Continue IV fluids midodrine and albumin infusion Physical Exam Vital Signs: Temp Pulse Resp BP Pulse Ox 98.7 F 99 18 94/33 L 95 02/16/20 16:00 02/16/20 16:00 02/16/20 16:00 02/16/20 16:00 02/16/20 16:00 Intake & Output 02/15/20 02/16/20 02/17/20 06:59 06:59 06:59 Intake Total 2691.2 2650 580 Output Total 1000 800 600 Balance 1691.2 1850 -20 Weight 77.2 kg 77.2 kg General appearance: PRESENT: mild distress, thin Head exam: PRESENT: atraumatic, normocephalic Eye exam: PRESENT: EOMI, PERRLA Mouth exam: PRESENT: moist Neck exam: PRESENT: full ROM Respiratory exam: PRESENT: clear to auscultation emmanuel, symmetrical, tachypnea Cardiovascular exam: PRESENT: RRR, +S1, +S2 Pulses: PRESENT: +2 pedal pulses bilateral Vascular exam: PRESENT: pallor GI/Abdominal exam: PRESENT: distended, guarding, normal bowel sounds, soft, other - Ex lap operative site with alli intact no signs of infection. Previous DILEEP drain insertion site covered with colostomy bag with significant fluid draining. Rectal exam: ABSENT: black stool Extremities exam: PRESENT: pedal edema, +2 edema Musculoskeletal exam: PRESENT: full ROM Neurological exam: PRESENT: awake, oriented to person, oriented to place, oriented to time, reflexes normal - He is weak looking and drowsy Psychiatric exam: PRESENT: depressed Skin exam: PRESENT: jaundice, pallor Results Laboratory Results: 02/16/20 16:12 02/16/20 04:56 02/16/20 02/16/20 02/16/20 04:56 04:56 07:53 WBC 14.6 H RBC 1.93 L Hgb 6.7 L Hct 19.8 L MCV 103 H MCH 35.0 H MCHC 34.0 RDW 16.2 H Plt Count 224 Seg Neutrophils % 83.9 H Sodium 130.6 L Potassium 4.7 Chloride 101 Carbon Dioxide 22 Anion Gap 8 BUN 18 Creatinine 2.93 H Est GFR ( Amer) 31 L Glucose 81 Calcium 7.3 L Total Bilirubin 5.0 H AST 70 H Alkaline Phosphatase 180 H Total Protein 5.1 L Albumin 2.0 L Blood Type A POSITIVE Antibody Screen NEGATIVE 02/16/20 16:12 WBC 18.3 H RBC 2.33 L Hgb 7.9 L Hct 23.0 L MCV 99 H D MCH 33.9 H MCHC 34.4 RDW 19.3 H Plt Count 272 Seg Neutrophils % 83.8 H Sodium Potassium Chloride Carbon Dioxide Anion Gap BUN Creatinine Est GFR ( Amer) Glucose Calcium Total Bilirubin AST Alkaline Phosphatase Total Protein Albumin Blood Type Antibody Screen 02/13/20 09:55 Abdomen - Post Surgical Site Gram Stain - Final 02/13/20 09:55 Abdomen - Post Surgical Site Wound Culture - Final Enterobacter Cloacae Enterococcus Faecalis(Group D) Klebsiella Pneumoniae-Esbl 02/13/20 19:57 Dileep Drainage (Timothy Pereira) Gram Stain - Final 02/13/20 19:57 Dileep Drainage (Timothy Pereira) Body Fluid Culture - Final C.albicans/C.dubliniensis No Anaerobic Organisms 02/13/20 02/13/20 02/13/20 07:40 12:30 18:15 Creatine Kinase 28 L 29 L 27 L Impressions: Head CT 02/13/20 00:56 IMPRESSION: No acute intracranial findings. Abdomen/Pelvis CT 02/13/20 01:10 IMPRESSION: There appears to be overall improvement in the splenic hematoma compared with the prior exam. A few foci of extraluminal air associated with the lateral left abdominal wall in this region may be postoperative in nature. Persistent moderate ascites. Improvement in the left pleural effusion. Diffuse hepatomegaly and fatty infiltrative change. Biliary stent in place. Pancreatic calcifications. Probable reactive enteritis. Question nonspecific colitis. TECHNICAL DOCUMENTATION: Quality ID # [id number]: Final reports with documentation of one or more dose reduction techniques (e.g., Automated exposure control, adjustment of the mA and/or kV according to patient size, use of iterative reconstruction technique) copyright 2011 [employer]- All Rights Reserved Chest X-Ray 02/14/20 00:00 IMPRESSION: NO ACUTE RADIOGRAPHIC FINDING IN THE CHEST. Renal Ultrasound 02/16/20 00:00 IMPRESSION: Normal renal ultrasound. There is small amount of free fluid in the pelvis.
--- NOTE | 2020-02-16 21:38 | RADIOLOGY REPORT (SQ) ---
CLINICAL INDICATION: hemoglobin drop. . TECHNIQUE: Noncontrast spiral axial CT imaging was obtained of the abdomen and pelvis with multiplanar reconstructions. This exam was performed according to our departmental dose-optimization program, which includes automated exposure control, adjustment of the mA and/or kV according to patient size and/or use of iterative reconstruction techniques. COMPARISON: February 13, 2020. CORRELATION: None. FINDINGS: Abdomen: The lung bases demonstrate progressive left basilar airspace disease and small left pleural effusion, progressive. Atelectasis right lung base, similar to prior. The heart is prominent. No pericardial fluid. The liver is enlarged and heterogeneous at 23.8 cm craniocaudad. The gallbladder is surgically absent. Plastic stent spanning the common bile duct. The pancreas and coarse calcification within the pancreas, likely secondary to chronic pancreatitis changes. This is similar to prior. The spleen is unremarkable. The adrenals are unremarkable. The kidneys appear grossly normal without evidence of urolithiasis or hydronephrosis. Perisplenic fluid is less prominent There is no evidence of free air. Free intraperitoneal fluid is markedly improved. Trace fluid remains. This is not percutaneously accessible. No bulky adenopathy. Abdominal aorta is nonaneurysmal. Recent postsurgical change, similar to prior. Please correlate with history. Pelvis: The bowel is nonobstructed. The bowel is unopacified with oral contrast. Pelvic contents are unremarkable. The appendix is normal. Visualized bones are unremarkable. IMPRESSION: Artifact from the patient's arm. Imaging is degraded by patient motion, with resultant artifact. The best possible images were obtained. Progressive left pleural effusion and adjacent airspace disease. The free intraperitoneal fluid is improved. Medical hepatic disease, similar to prior. Chronic pancreatitis changes, similar to prior. No high-grade bowel obstruction. Specifically, there is no evidence of acute intra-abdominal hemorrhage.
[2020-02-16] MEDS ORDERED: MEROPENEM 500 MG in NORMAL SALINE 50 ML IV SCH (22:00)
[2020-02-16 22:26] VITALS: BP 101/35
== END 2020-02-16 22:30 | disposition short-term general hospital (02) | DRG 871 ==
LOC: ER 23:58 → EH 02-13 05:51 → ICU 02-13 08:05 → 4N 02-13 21:29
PROVIDERS: ADMIT Anesthesiology; ATTEND Internal Medicine
PROC: HZ2ZZZZ Detoxification Services for Substance Abuse Treatment (ICD-10-PCS; 2020-02-13)
PROC: 30233N1 Transfusion of Nonautologous Red Blood Cells into Peripheral Vein, Percutaneous Approach (ICD-10-PCS; principal; 2020-02-16)
DX: A41.9 Sepsis, unspecified organism (principal); R65.21 Severe sepsis with septic shock; G93.41 Metabolic encephalopathy; N17.9 Acute kidney failure, unspecified; F10.239 Alcohol dependence with withdrawal, unspecified; R18.8 Other ascites; E87.1 Hypo-osmolality and hyponatremia; B96.1 Klebsiella pneumoniae [K. pneumoniae] as the cause of diseases classified elsewhere; B95.2 Enterococcus as the cause of diseases classified elsewhere; D73.5 Infarction of spleen; B37.9 Candidiasis, unspecified; I95.9 Hypotension, unspecified; R74.0 Nonspecific elevation of levels of transaminase and lactic acid dehydrogenase [LDH]; K70.11 Alcoholic hepatitis with ascites; D64.9 Anemia, unspecified; F17.210 Nicotine dependence, cigarettes, uncomplicated; Z03.818 Encounter for observation for suspected exposure to other biological agents ruled out; Z79.899 Other long term (current) drug therapy
CPT/HCPCS: 36415; 36430; 70450; 71045; 74176; 76770; 80053; 80202; 80307; 81001; 82140; 82550; 82565; 82570; 83605; 83690; 83735; 83930; 83935; 84300; 85025; 85610; 85730; 86850; 86900; 86901; 86920; 87040; 87070; 87075; 87077; 87086; 87186; 87205; 87635; 93005; 93010; 96365; 96366; 96368; 96375; 99285; C9113; C9803; J1170; J1450; J1885; J2060; J2185; J2543; J2765; J3010; J3370; J3411; J3430; J3490; J7030; J7040; J7050; J7060; J7120; P9016; P9047